=== PATIENT | male | born 1960 | race Caucasian/White ===

== ENCOUNTER 2021-10-27 15:31 | Inpatient (IN) | payer MEDICAID ==
[2021-10-27 22:01] LABS: Hematocrit 35.4 % (35.5-45.6); Hemoglobin 12.5 gm/dl (11.8-15.2); Mean Corpuscular HGB Conc 35 % (32-34); Mean Corpuscular Volume 88 fl (84-94); Platelet Count 240 K/mm3 (140-440); Red Blood Count 4.02 M/mm3 (3.65-5.03); Red Cell Distribution Width 14.6 % (13.2-15.2)
[2021-10-27 22:20] LABS: Alanine Aminotransferase 17 units/L (7-56); Albumin 2.9 g/dL (3.9-5); BUN/Creatinine Ratio 8; Blood Urea Nitrogen 9 mg/dL (9-20); Calcium 8.3 mg/dL (8.4-10.2); Chol/HDL Ratio 5.95 %; HDL Cholesterol 22 mg/dL (40-59); Hemolysis Index 15; LDL Cholesterol,Direct 80 mg/dL (50-130)
[2021-10-27] MEDS: traZODone 50 MG TAB PO SCH (22:23)
[2021-10-27 23:54] LABS: Band Neutrophils # (Manual) 0.2 K/mm3; Basophils % (Manual) 0 % (0.0-1.8); Eosinophils % (Manual) 0 % (0.0-4.3); Total Cells Counted 100
[2021-10-27 23:56] LABS: Anisocytosis 1+
[2021-10-27 23:57] LABS: Large Platelets Few; Macrocytosis Few; Platelet Estimate Consistent w Auto
--- NOTE | 2021-10-28 08:12 | History and Physical Report ---
GP History & Physical - History of Present Illness Date of admission: 10/27/21 Date of Examination: 10/28/21 Reason for Admission: Danger to self, Failure of Outpatient Treatment, Severe anxiety/depression History of Present Illness: The patient was seen today. He says he is depressed and is an alcoholic. The patient is irritable because he says he's tired of answering the same questions. The patient says he spends a lot of money on alcohol a day, he says about $60 daily. He says he drinks pretty much anything. The patient says he has a history of schizophrenia and been off his meds for about 7 months. He does not recall his meds. When asking about hallucinations, the patient replies "yes, but I be so drunk I don't pay them no attention." PAST PSYCHIATRIC HISTORY: Diagnoses: Schizophrenia Suicide attempts or Self-harm behavior: Denies Prior psychiatric hospitalizations: Denies Substance Abuse history: Alcohol Previous psychiatric medications tried: Trazodone Outpatient treatment: not recently PAST MEDICAL HISTORY: None reported Family Psychiatric History: None reported or documented SOCIAL HISTORY Marital Status: Single Living Arrangements: alone Employment Status: Disabled Access to guns/weapons: Denies Education: History of Abuse:Denies Legal History: Denies REVIEW OF SYSTEMS Constitutional: Negative for weight loss ENT: Negative for stridor Respiratory: Negative for cough or hemoptysis All other systems reviewed and are negative MENTAL STATUS EXAMINATION General Appearance and Behavior: Age appropriate, wearing appropriate clothes, cooperative, irritable, fair eye contact Cooperation: cooperative Psychomotor Behavior: Psychomotor normal Mood: irritable, depressed Affect and affective range: congruent with stated affect Thought Process: Goal directed Thought Content: Reality oriented Speech: Normal volume, Regular rate and rhythm Suicidal Ideation: Denies Homicidal Ideation: Denies Hallucination: Denies Delusions: None elicited Impulse Control: Limited Insight and Judgment: Limited Memory: Intact Attention:attentive Orientation: Alert and oriented Diagnoses: Unspecified mood disorder Treatment Plan Patient admitted for inpatient psychiatric evaluation, medication adjustment and close monitoring The patient's behavior, mood, sleep and appetite will be closely monitored. Patient enrolled in individual and group therapeutic sessions and encouraged to attend. Patient provided with a safe and structured environment. Patient's physical health needs will be addressed by the Hospitalist. Hospitalist Consulted Labs including CBC, CMP, Lipid profile and Hemoglobin A1C levels ordered for b aseline reference Social Assessment will be completed and the Transfer Station Attendant will work with patient and family to ensure a suitable and safe disposition Medication adjustment will be made as clinically indicated CIWA Prozac 10mg po daily Abilify 5mg po daily Trazodone 50mg po qhs Melatonin 5mg po qhs prn insomnia Folic 1mg po daily Multivitamin 1 tab daily Usual Wellness Anabaptism/Preservation: - Start Trazodone 50 mg po QHS & 50 mg po QHS PRN between 10 PM & 2 AM for insomnia - Start Melatonin 5 mg po QHS to promote circadian rhythm The patient agreed on the treatment plan, understood the risk, benefit, alternative treatment, potential consequence of no treatment, and gave informed consent. Estimated days: 7 Post hospital care: primary care provider, psychiatric provider Case staffed with Dr. Segovia Legal Status: Voluntary Reaction to Hospitalization: Accepting Medications and Allergies Allergies Allergy/AdvReac Type Severity Reaction Status Date / Time No Known Drug Allergies Allergy Unknown Verified 10/27/21 20:44 Active Meds: Active Medications Lorazepam (Lorazepam 2 Mg/Ml Vial) 2 mg IM Q4H PRN PRN Reason: Withdrawl Symptoms Trazodone HCl (Trazodone 50 Mg Tab) 50 mg PO QHS [facility] Last Admin: 10/27/21 22:23 Dose: 50 mg Results - Results Labs/Vitals: Laboratory Last Values WBC 7.3 K/mm3 (4.5-11.0) 10/27/21 21:49 RBC 4.02 M/mm3 (3.65-5.03) 10/27/21 21:49 Hgb 12.5 gm/dl (11.8-15.2) 10/27/21 21:49 Hct 35.4 % (35.5-45.6) L 10/27/21 21:49 MCV 88 fl (84-94) 10/27/21 21:49 MCH 31 pg (28-32) 10/27/21 21:49 MCHC 35 % (32-34) H 10/27/21 21:49 RDW 14.6 % (13.2-15.2) 10/27/21 21:49 Plt Count 240 K/mm3 (140-440) 10/27/21 21:49 [place] % (Auto) Registered Dietician 10/27/21 21:49 Add Manual Diff Complete 10/27/21 21:49 Total Counted 100 10/27/21 21:49 Seg Neutrophils % Registered Dietician 10/27/21 21:49 Seg Neuts % (Manual) 75.0 % (40.0-70.0) H 10/27/21 21:49 Band Neutrophils % 3.0 % 10/27/21 21:49 Lymphocytes % (Manual) 12.0 % (13.4-35.0) L 10/27/21 21:49 Reactive Lymphs % (Man) 0 % 10/27/21 21:49 Monocytes % (Manual) 10.0 % (0.0-7.3) H 10/27/21 21:49 Eosinophils % (Manual) 0 % (0.0-4.3) 10/27/21 21:49 Basophils % (Manual) 0 % (0.0-1.8) 10/27/21 21:49 Metamyelocytes % 0 % 10/27/21 21:49 Myelocytes % 0 % 10/27/21 21:49 Promyelocytes % 0 % 10/27/21 21:49 Blast Cells % 0 % 10/27/21 21:49 Nucleated RBC % Not Reportable 10/27/21 21:49 Seg Neutrophils # Man 5.5 K/mm3 (1.8-7.7) 10/27/21 21:49 Band Neutrophils # 0.2 K/mm3 10/27/21 21:49 Lymphocytes # (Manual) 0.9 K/mm3 (1.2-5.4) L 10/27/21 21:49 Abs React Lymphs (Man) 0.0 K/mm3 10/27/21 21:49 Monocytes # (Manual) 0.7 K/mm3 (0.0-0.8) 10/27/21 21:49 Eosinophils # (Manual) 0.0 K/mm3 (0.0-0.4) 10/27/21 21:49 Basophils # (Manual) 0.0 K/mm3 (0.0-0.1) 10/27/21 21:49 Metamyelocytes # 0.0 K/mm3 10/27/21 21:49 Myelocytes # 0.0 K/mm3 10/27/21 21:49 Promyelocytes # 0.0 K/mm3 10/27/21 21:49 Blast Cells # 0.0 K/mm3 10/27/21 21:49 WBC Morphology Not Reportable 10/27/21 21:49 Hypersegmented Neuts Not Reportable 10/27/21 21:49 Hyposegmented Neuts Not Reportable 10/27/21 21:49 Hypogranular Neuts Not Reportable 10/27/21 21:49 Smudge Cells Not Reportable 10/27/21 21:49 Toxic Granulation Not Reportable 10/27/21 21:49 Toxic Vacuolation Not Reportable 10/27/21 21:49 Dohle Bodies Not Reportable 10/27/21 21:49 Pelger-Huet Anomaly Not Reportable 10/27/21 21:49 Mu Rods Not Reportable 10/27/21 21:49 Platelet Estimate Consistent w auto 10/27/21 21:49 Clumped Platelets Not Reportable 10/27/21 21:49 Plt Clumps, EDTA Not Reportable 10/27/21 21:49 Large Platelets Few 10/27/21 21:49 Giant Platelets Not Reportable 10/27/21 21:49 Platelet Satelliting Not Reportable 10/27/21 21:49 Plt Morphology Comment Not Reportable 10/27/21 21:49 RBC Morphology Not Reportable 10/27/21 21:49 Dimorphic RBCs Not Reportable 10/27/21 21:49 Polychromasia Not Reportable 10/27/21 21:49 Hypochromasia Not Reportable 10/27/21 21:49 Poikilocytosis Not Reportable 10/27/21 21:49 Anisocytosis 1+ 10/27/21 21:49 Microcytosis Not Reportable 10/27/21 21:49 Macrocytosis Few 10/27/21 21:49 Spherocytes Not Reportable 10/27/21 21:49 Pappenheimer Bodies Not Reportable 10/27/21 21:49 Sickle Cells Not Reportable 10/27/21 21:49 Target Cells Not Reportable 10/27/21 21:49 Tear Drop Cells Not Reportable 10/27/21 21:49 Ovalocytes Not Reportable 10/27/21 21:49 Helmet Cells Not Reportable 10/27/21 21:49 [place] Bodies Not Reportable 10/27/21 21:49 [place] Rings Not Reportable 10/27/21 21:49 [place] Cells Not Reportable 10/27/21 21:49 Bite Cells Not Reportable 10/27/21 21:49 Crenated Cell Not Reportable 10/27/21 21:49 Elliptocytes Not Reportable 10/27/21 21:49 Acanthocytes (Spur) Not Reportable 10/27/21 21:49 Rouleaux Not Reportable 10/27/21 21:49 Hemoglobin C Crystals Not Reportable 10/27/21 21:49 Schistocytes Not Reportable 10/27/21 21:49 Malaria parasites Not Reportable 10/27/21 21:49 [place] Bodies Not Reportable 10/27/21 21:49 Hem Pathologist Commnt No 10/27/21 21:49 Sodium 137 mmol/L (137-145) 10/27/21 21:49 Potassium 3.6 mmol/L (3.6-5.0) 10/27/21 21:49 Chloride 102.9 mmol/L (98-107) 10/27/21 21:49 Carbon Dioxide 27 mmol/L (22-30) 10/27/21 21:49 Anion Gap 11 mmol/L 10/27/21 21:49 BUN 9 mg/dL (9-20) 10/27/21 21:49 Creatinine 1.1 mg/dL (0.8-1.3) 10/27/21 21:49 Estimated GFR > 60 ml/min 10/27/21 21:49 BUN/Creatinine Ratio 8 % 10/27/21 21:49 Glucose 79 mg/dL (75-100) 10/27/21 21:49 POC Glucose 85 mg/dL (70-105) 10/27/21 22:43 Hemoglobin A1c 5.9 % (4-6) 10/27/21 21:49 Calcium 8.3 mg/dL (8.4-10.2) L 10/27/21 21:49 Total Bilirubin 0.50 mg/dL (0.1-1.2) 10/27/21 21:49 AST 33 units/L (5-40) 10/27/21 21:49 ALT 17 units/L (7-56) 10/27/21 21:49 Alkaline Phosphatase 77 units/L (35-129) 10/27/21 21:49 Total Protein 7.6 g/dL (6.3-8.2) 10/27/21 21:49 Albumin 2.9 g/dL (3.9-5) L 10/27/21 21:49 Albumin/Globulin Ratio 0.6 % 10/27/21 21:49 Triglycerides 106 mg/dL (2-149) 10/27/21 21:49 Cholesterol 131 mg/dL (50-199) 10/27/21 21:49 LDL Cholesterol Direct 80 mg/dL (50-130) 10/27/21 21:49 HDL Cholesterol 22 mg/dL (40-59) L 10/27/21 21:49 Cholesterol/HDL Ratio 5.95 % 10/27/21 21:49 TSH 0.970 mlU/mL (0.270-4.200) 10/27/21 21:49 Last Vital Signs Temp 100.2 F H 10/27/21 22:00 Pulse 95 H 10/27/21 22:00 Resp 20 10/27/21 22:00 BP 111/64 10/27/21 22:00 Pulse Ox 93 10/27/21 22:00 Physical Examination - Constitutional Vitals: Vital Signs Temp Pulse Resp BP Pulse Ox 100.2 F H 95 H 20 111/64 93 10/27/21 22:00 10/27/21 22:00 10/27/21 22:00 10/27/21 22:00 10/27/21 22:00 Temperature -Last 24 Hours Temperature 100.2 F Mental Status Exam - Vital signs Last Vital Signs Temp 100.2 F H 10/27/21 22:00 Pulse 95 H 10/27/21 22:00 Resp 20 10/27/21 22:00 BP 111/64 10/27/21 22:00 Pulse Ox 93 10/27/21 22:00 Physician Certification - Certification Statement Physician Certification Statement: This is an acknowledgement statement that MARIA R STOUT is a 61 year old M who requires inpatient psychiatric admission for treatment which could reasonably be expected to improve the patient's condition for Estimated period of time patient will need to remain in the hospital: [ ] Plan for post-hospital care: [ ]
[2021-10-28] MEDS ORDERED: MELATONIN 5 MG TAB PO PRN (08:13)
[2021-10-28] MEDS: ARIPiprazole 5 MG TAB PO SCH (09:22)
[2021-10-28] MEDS: FOLIC ACID 1 MG TAB PO SCH (09:23)
[2021-10-28] MEDS: MULTIVITAMINS ,THERAPEUTIC TAB PO SCH (09:23)
[2021-10-28] MEDS ORDERED: ESCITALOPRAM 10 MG TAB PO SCH (10:00)
--- NOTE | 2021-10-28 10:21 | Consultation ---
History of Present Illness - History of Present Illness HPI: 61-year-old male with past medical history of schizophrenia and alcohol abuse presenting to our facility with complaint of depression. He has a longstanding history of noncompliance with medications and significant substance abuse with alcohol. Internal medicine service consulted for medical management. PMHx: History of alcohol abuse, severe anxiety depression, schizophrenia PSHx: Denies FHx: Reviewed noncontributory SHx: Tobacco use-denies ETOH Use-admits Recreational Drug Use-denies Single lives alone Medications and Allergies Allergies Allergy/AdvReac Type Severity Reaction Status Date / Time No Known Drug Allergies Allergy Unknown Verified 10/27/21 20:44 Home Medications Medication Instructions Recorded Confirmed Last Taken Type Sulfamethoxazole/Trimethoprim 1 each PO BID 10/28/21 10/28/21 Unknown History [Sulfamethoxazole-Tmp Ds Tablet] Active Meds: Active Medications Aripiprazole (Aripiprazole 5 Mg Tab) 5 mg PO QDAY [facility] Last Admin: 10/28/21 09:22 Dose: 5 mg Escitalopram Oxalate (Escitalopram 10 Mg Tab) 5 mg PO QDAY [facility] Last Admin: 10/28/21 09:22 Dose: 5 mg Folic Acid (Folic Acid 1 Mg Tab) 1 mg PO QDAY [facility] Last Admin: 10/28/21 09:23 Dose: 1 mg Lorazepam (Lorazepam 2 Mg/Ml Vial) 2 mg IM Q4H PRN PRN Reason: Withdrawl Symptoms Melatonin (Melatonin 5 Mg Tab) 5 mg PO QHS PRN PRN Reason: Sleep Multivitamins (Multivitamins ,Therapeutic Tab) 1 each PO QDAY [facility] Last Admin: 10/28/21 09:23 Dose: 1 each Trazodone HCl (Trazodone 50 Mg Tab) 50 mg PO QHS [facility] Last Admin: 10/27/21 22:23 Dose: 50 mg Review of Systems All systems: negative (Negative except for stated in HPI) Exam - Physical Exam Narrative exam: Physical Exam: VITAL SIGNS: Reviewed. GENERAL: The patient appears normally developed, Vital signs as documented. Irritable HEAD: No signs of head trauma. EYES: Pupils are equal. Extraocular motions intact. EARS: Hearing grossly intact. MOUTH: Oropharynx is normal. NECK: No adenopathy, no JVD. CHEST: Chest with clear breath sounds bilaterally. No wheezes, rales, or rhonchi. CARDIAC: Regular rate and rhythm. S1 and S2, without murmurs, gallops, or rubs . VASCULAR: No Edema. Peripheral pulses normal and equal in all extremities. ABDOMEN: Soft, non tender and non distended. No rebound or guarding, and no masses palpated. Bowel Sounds normal. MUSCULOSKELETAL: Good range of motion of all major joints. Extremities without clubbing, cyanosis or edema. NEUROLOGIC EXAM: Alert and oriented x 4. no focal sensory or strength deficits. PSYCHIATRIC: Irritable, avoids eye contact SKIN: detail exam as documented in skin assessment - Constitutional Vitals: Temp Pulse Resp BP Pulse Ox 100.2 F H 95 H 20 111/64 93 10/27/21 22:00 10/27/21 22:00 10/27/21 22:00 10/27/21 22:00 10/27/21 22:00 Results - Labs CBC & Chem 7: 10/27/21 21:49 10/27/21 21:49 Labs: Abnormal lab results 10/27/21 10/27/21 Range/Units 21:49 21:49 Hct 35.4 L (35.5-45.6) % MCHC 35 H (32-34) % Seg Neuts % (Manual) 75.0 H (40.0-70.0) % Lymphocytes % (Manual) 12.0 L (13.4-35.0) % Monocytes % (Manual) 10.0 H (0.0-7.3) % Lymphocytes # (Manual) 0.9 L (1.2-5.4) K/mm3 Calcium 8.3 L (8.4-10.2) mg/dL Albumin 2.9 L (3.9-5) g/dL HDL Cholesterol 22 L (40-59) mg/dL Assessment and Plan Assessment #Schizophrenia #Unspecified mood disorder #Anxiety depression #Alcohol abuse - behavioral health counseling administered which included education on benefits of alcohol cessation as well as options for quitting. +15 min. #Advance care planning Disease education conducted, care plan discussed, diagnoses discussed, prognosis discussed, patient is full code, patient acknowledges understanding and agree with care plan, +30 minutes. Plan -Psychiatric medication management per inpatient psych service -Monitor blood pressure daily -Accu-Cheks ACHS -Agree with [facility] protocol - follow labs ordered: CBC, CMP, lipid panel, hemoglobin A1c, thyroid panel -Febrile 100.2, elevated pulse rate 95 bpm, doubt infection at this point. Patient may be withdrawing. We will continue to follow laboratory work-up and assess clinically. IMS will continue to follow while patient remains hospitalized.
[2021-10-28] MEDS: traZODone 50 MG TAB PO SCH (21:14)
[2021-10-28] MEDS ORDERED: ONDANSETRON 4 MG ODT TAB PO PRN (21:49)
--- NOTE | 2021-10-29 08:50 | Progress Note ---
Subjective Date of service: 10/29/21 Principal diagnosis: MDD Subjective Comment: The patient was seen today. He says he's doing better but still depressed. He denies SI/HI or hallucinations of any kind. REVIEW OF SYSTEMS Constitutional: Negative for weight loss ENT: Negative for stridor Respiratory: Negative for cough or hemoptysis All other systems reviewed and are negative MENTAL STATUS EXAMINATION General Appearance and Behavior: Age appropriate, wearing appropriate clothes, cooperative, irritable, fair eye contact Cooperation: cooperative Psychomotor Behavior: Psychomotor normal Mood: depressed Affect and affective range: congruent with stated affect Thought Process: Goal directed Thought Content: Reality oriented Speech: Normal volume, Regular rate and rhythm Suicidal Ideation: Denies Homicidal Ideation: Denies Hallucination: Denies Delusions: None elicited Impulse Control: Limited Insight and Judgment: Limited Memory: Intact Attention:attentive Orientation: Alert and oriented Diagnoses: Unspecified mood disorder Treatment Plan Patient admitted for inpatient psychiatric evaluation, medication adjustment and close monitoring The patient's behavior, mood, sleep and appetite will be closely monitored. Patient enrolled in individual and group therapeutic sessions and encouraged to attend. Patient provided with a safe and structured environment. Patient's physical health needs will be addressed by the Hospitalist. Hospitalist Consulted Labs including CBC, CMP, Lipid profile and Hemoglobin A1C levels ordered for baseline reference Social Assessment will be completed and the Crtt will work with patient and family to ensure a suitable and safe disposition Medication adjustment will be made as clinically indicated Increase Lexapro 10mg po daily Start Depakote DR 125mg po BID Usual Wellness Advent/Preservation: - Start Trazodone 50 mg po QHS & 50 mg po QHS PRN between 10 PM & 2 AM for insomnia - Start Melatonin 5 mg po QHS to promote circadian rhythm The patient agreed on the treatment plan, understood the risk, benefit, alternative treatment, potential consequence of no treatment, and gave informed consent. Estimated days: 7 Post hospital care: primary care provider, psychiatric provider Case staffed with Dr. Segovia Medications and Allergies Allergies Allergy/AdvReac Type Severity Reaction Status Date / Time No Known Drug Allergies Allergy Unknown Verified 10/27/21 20:44 Home Medications Medication Instructions Recorded Confirmed Last Taken Type Sulfamethoxazole/Trimethoprim 1 each PO BID 10/28/21 10/28/21 Unknown History [Sulfamethoxazole-Tmp Ds Tablet] Active Meds: Active Medications Aripiprazole (Aripiprazole 5 Mg Tab) 5 mg PO QDAY [facility] Last Admin: 10/28/21 09:22 Dose: 5 mg Escitalopram Oxalate (Escitalopram 10 Mg Tab) 5 mg PO QDAY [facility] Last Admin: 10/28/21 09:22 Dose: 5 mg Folic Acid (Folic Acid 1 Mg Tab) 1 mg PO QDAY [facility] Last Admin: 10/28/21 09:23 Dose: 1 mg Lorazepam (Lorazepam 2 Mg/Ml Vial) 2 mg IM Q4H PRN PRN Reason: Withdrawl Symptoms Melatonin (Melatonin 5 Mg Tab) 5 mg PO QHS PRN PRN Reason: Sleep Multivitamins (Multivitamins ,Therapeutic Tab) 1 each PO QDAY [facility] Last Admin: 10/28/21 09:23 Dose: 1 each Ondansetron HCl (Ondansetron 4 Mg Odt Tab) 4 mg PO Q4H PRN PRN Reason: Nausea And Vomiting Trazodone HCl (Trazodone 50 Mg Tab) 50 mg PO QHS [facility] Last Admin: 10/28/21 21:14 Dose: Not Given Results - Results Labs/Vitals: Laboratory Last Values WBC 7.3 K/mm3 (4.5-11.0) 10/27/21 21:49 RBC 4.02 M/mm3 (3.65-5.03) 10/27/21 21:49 Hgb 12.5 gm/dl (11.8-15.2) 10/27/21 21:49 Hct 35.4 % (35.5-45.6) L 10/27/21 21:49 MCV 88 fl (84-94) 10/27/21 21:49 MCH 31 pg (28-32) 10/27/21 21:49 MCHC 35 % (32-34) H 10/27/21 21:49 RDW 14.6 % (13.2-15.2) 10/27/21 21:49 Plt Count 240 K/mm3 (140-440) 10/27/21 21:49 [place] % (Auto) Corporate Development Intern 10/27/21 21:49 Add Manual Diff Complete 10/27/21 21:49 Total Counted 100 10/27/21 21:49 Seg Neutrophils % Corporate Development Intern 10/27/21 21:49 Seg Neuts % (Manual) 75.0 % (40.0-70.0) H 10/27/21 21:49 Band Neutrophils % 3.0 % 10/27/21 21:49 Lymphocytes % (Manual) 12.0 % (13.4-35.0) L 10/27/21 21:49 Reactive Lymphs % (Man) 0 % 10/27/21 21:49 Monocytes % (Manual) 10.0 % (0.0-7.3) H 10/27/21 21:49 Eosinophils % (Manual) 0 % (0.0-4.3) 10/27/21 21:49 Basophils % (Manual) 0 % (0.0-1.8) 10/27/21 21:49 Metamyelocytes % 0 % 10/27/21 21:49 Myelocytes % 0 % 10/27/21 21:49 Promyelocytes % 0 % 10/27/21 21:49 Blast Cells % 0 % 10/27/21 21:49 Nucleated RBC % Not Reportable 10/27/21 21:49 Seg Neutrophils # Man 5.5 K/mm3 (1.8-7.7) 10/27/21 21:49 Band Neutrophils # 0.2 K/mm3 10/27/21 21:49 Lymphocytes # (Manual) 0.9 K/mm3 (1.2-5.4) L 10/27/21 21:49 Abs React Lymphs (Man) 0.0 K/mm3 10/27/21 21:49 Monocytes # (Manual) 0.7 K/mm3 (0.0-0.8) 10/27/21 21:49 Eosinophils # (Manual) 0.0 K/mm3 (0.0-0.4) 10/27/21 21:49 Basophils # (Manual) 0.0 K/mm3 (0.0-0.1) 10/27/21 21:49 Metamyelocytes # 0.0 K/mm3 10/27/21 21:49 Myelocytes # 0.0 K/mm3 10/27/21 21:49 Promyelocytes # 0.0 K/mm3 10/27/21 21:49 Blast Cells # 0.0 K/mm3 10/27/21 21:49 WBC Morphology Not Reportable 10/27/21 21:49 Hypersegmented Neuts Not Reportable 10/27/21 21:49 Hyposegmented Neuts Not Reportable 10/27/21 21:49 Hypogranular Neuts Not Reportable 10/27/21 21:49 Smudge Cells Not Reportable 10/27/21 21:49 Toxic Granulation Not Reportable 10/27/21 21:49 Toxic Vacuolation Not Reportable 10/27/21 21:49 Dohle Bodies Not Reportable 10/27/21 21:49 Pelger-Huet Anomaly Not Reportable 10/27/21 21:49 Mu Rods Not Reportable 10/27/21 21:49 Platelet Estimate Consistent w auto 10/27/21 21:49 Clumped Platelets Not Reportable 10/27/21 21:49 Plt Clumps, EDTA Not Reportable 10/27/21 21:49 Large Platelets Few 10/27/21 21:49 Giant Platelets Not Reportable 10/27/21 21:49 Platelet Satelliting Not Reportable 10/27/21 21:49 Plt Morphology Comment Not Reportable 10/27/21 21:49 RBC Morphology Not Reportable 10/27/21 21:49 Dimorphic RBCs Not Reportable 10/27/21 21:49 Polychromasia Not Reportable 10/27/21 21:49 Hypochromasia Not Reportable 10/27/21 21:49 Poikilocytosis Not Reportable 10/27/21 21:49 Anisocytosis 1+ 10/27/21 21:49 Microcytosis Not Reportable 10/27/21 21:49 Macrocytosis Few 10/27/21 21:49 Spherocytes Not Reportable 10/27/21 21:49 Pappenheimer Bodies Not Reportable 10/27/21 21:49 Sickle Cells Not Reportable 10/27/21 21:49 Target Cells Not Reportable 10/27/21 21:49 Tear Drop Cells Not Reportable 10/27/21 21:49 Ovalocytes Not Reportable 10/27/21 21:49 Helmet Cells Not Reportable 10/27/21 21:49 [place] Bodies Not Reportable 10/27/21 21:49 [place] Rings Not Reportable 10/27/21 21:49 [place] Cells Not Reportable 10/27/21 21:49 Bite Cells Not Reportable 10/27/21 21:49 Crenated Cell Not Reportable 10/27/21 21:49 Elliptocytes Not Reportable 10/27/21 21:49 Acanthocytes (Spur) Not Reportable 10/27/21 21:49 Rouleaux Not Reportable 10/27/21 21:49 Hemoglobin C Crystals Not Reportable 10/27/21 21:49 Schistocytes Not Reportable 10/27/21 21:49 Malaria parasites Not Reportable 10/27/21 21:49 [place] Bodies Not Reportable 10/27/21 21:49 Hem Pathologist Commnt No 10/27/21 21:49 Sodium 137 mmol/L (137-145) 10/27/21 21:49 Potassium 3.6 mmol/L (3.6-5.0) 10/27/21 21:49 Chloride 102.9 mmol/L (98-107) 10/27/21 21:49 Carbon Dioxide 27 mmol/L (22-30) 10/27/21 21:49 Anion Gap 11 mmol/L 10/27/21 21:49 BUN 9 mg/dL (9-20) 10/27/21 21:49 Creatinine 1.1 mg/dL (0.8-1.3) 10/27/21 21:49 Estimated GFR > 60 ml/min 10/27/21 21:49 BUN/Creatinine Ratio 8 % 10/27/21 21:49 Glucose 79 mg/dL (75-100) 10/27/21 21:49 POC Glucose 85 mg/dL (70-105) 10/27/21 22:43 Hemoglobin A1c 5.9 % (4-6) 10/27/21 21:49 Calcium 8.3 mg/dL (8.4-10.2) L 10/27/21 21:49 Total Bilirubin 0.50 mg/dL (0.1-1.2) 10/27/21 21:49 AST 33 units/L (5-40) 10/27/21 21:49 ALT 17 units/L (7-56) 10/27/21 21:49 Alkaline Phosphatase 77 units/L (35-129) 10/27/21 21:49 Total Protein 7.6 g/dL (6.3-8.2) 10/27/21 21:49 Albumin 2.9 g/dL (3.9-5) L 10/27/21 21:49 Albumin/Globulin Ratio 0.6 % 10/27/21 21:49 Triglycerides 106 mg/dL (2-149) 10/27/21 21:49 Cholesterol 131 mg/dL (50-199) 10/27/21 21:49 LDL Cholesterol Direct 80 mg/dL (50-130) 10/27/21 21:49 HDL Cholesterol 22 mg/dL (40-59) L 10/27/21 21:49 Cholesterol/HDL Ratio 5.95 % 10/27/21 21:49 TSH 0.970 mlU/mL (0.270-4.200) 10/27/21 21:49 Last Vital Signs Temp 100.2 F H 10/28/21 22:00 Pulse 84 10/28/21 22:00 Resp 17 10/28/21 22:00 BP 114/85 10/28/21 22:00 Pulse Ox 96 10/28/21 22:00
[2021-10-29] MEDS: FOLIC ACID 1 MG TAB PO SCH (10:34)
[2021-10-29] MEDS: MULTIVITAMINS ,THERAPEUTIC TAB PO SCH (10:34)
[2021-10-29] MEDS: ARIPiprazole 5 MG TAB PO SCH (10:34)
[2021-10-29] MEDS: ESCITALOPRAM 10 MG TAB PO SCH (10:49)
[2021-10-29] MEDS: DIVALPROEX DR 125 MG TAB PO SCH ×2 (10:49→22:16)
[2021-10-29] MEDS: LORazepam 2 MG/ML VIAL IM PRN ×2 (11:50→16:15)
--- NOTE | 2021-10-29 12:22 | Progress Note ---
Assessment and Plan Assessment and plan: Assessment #Schizophrenia #Unspecified mood disorder #Anxiety depression #Alcohol abuse #Alcoholic withdrawals - behavioral health counseling administered which included education on benefits of alcohol cessation as well as options for quitting. +15 min. #protein calorie malnutrition #Advance care planning Disease education conducted, care plan discussed, diagnoses discussed, prognosis discussed, patient is full code, patient acknowledges understanding and agree with care plan, +30 minutes. Plan -Psychiatric medication management per inpatient psych service -recommend q8hr vital sign checks if possible -Accu-Cheks ACHS -Agree with CIWA protocol as patient is clearly withdrawing, Ativan prn. - follow labs ordered: CBC, CMP, lipid panel, hemoglobin A1c, thyroid panel - continues to be febrile, however this appears to be consistent with withdrawal. WBC nonelevated, would recommend continued vital sign monitoring. - changed diet to clear liquid diet, can have saltines. Encouraged aggressive PO hydration as tolerated. - very malnourished...when able to tolerate, would recommend protein shakes with meals IMS will continue to follow while patient remains hospitalized. History Interval history: Very nauseous. One episode of blood tingued emesis. Hospitalist Physical - Physical exam Narrative exam: Physical Exam: VITAL SIGNS: Reviewed. GENERAL: The patient appears normally developed, Vital signs as documented. ll appearing. thin gentleman. HEAD: No signs of head trauma. EYES: Pupils are equal. Extraocular motions intact. EARS: Hearing grossly intact. MOUTH: Oropharynx is normal. NECK: No adenopathy, no JVD. CHEST: Chest with clear breath sounds bilaterally. No wheezes, rales, or rhonchi. CARDIAC: Regular rate and rhythm. S1 and S2, without murmurs, gallops, or rubs. VASCULAR: No Edema. Peripheral pulses normal and equal in all extremities. ABDOMEN: Soft, non tender and non distended. No rebound or guarding, and no masses palpated. Bowel Sounds normal. MUSCULOSKELETAL: Good range of motion of all major joints. Extremities without clubbing, cyanosis or edema. NEUROLOGIC EXAM: Alert and oriented x 4. no focal sensory or strength deficits. PSYCHIATRIC: Irritable, avoids eye contact SKIN: detail exam as documented in skin assessment - Constitutional Vitals: Temp Pulse Resp BP Pulse Ox 100.2 F H 84 17 114/85 96 10/28/21 22:00 10/28/21 22:00 10/28/21 22:00 10/28/21 22:00 10/28/21 22:00 Results - Labs CBC & Chem 7: 10/27/21 21:49 10/27/21 21:49 Labs: Laboratory Last Values WBC 7.3 K/mm3 (4.5-11.0) 10/27/21 21:49 RBC 4.02 M/mm3 (3.65-5.03) 10/27/21 21:49 Hgb 12.5 gm/dl (11.8-15.2) 10/27/21 21:49 Hct 35.4 % (35.5-45.6) L 10/27/21 21:49 MCV 88 fl (84-94) 10/27/21 21:49 MCH 31 pg (28-32) 10/27/21 21:49 MCHC 35 % (32-34) H 10/27/21 21:49 RDW 14.6 % (13.2-15.2) 10/27/21 21:49 Plt Count 240 K/mm3 (140-440) 10/27/21 21:49 [place] % (Auto) Hand Stone Polisher 10/27/21 21:49 Add Manual Diff Complete 10/27/21 21:49 Total Counted 100 10/27/21 21:49 Seg Neutrophils % Hand Stone Polisher 10/27/21 21:49 Seg Neuts % (Manual) 75.0 % (40.0-70.0) H 10/27/21 21:49 Band Neutrophils % 3.0 % 10/27/21 21:49 Lymphocytes % (Manual) 12.0 % (13.4-35.0) L 10/27/21 21:49 Reactive Lymphs % (Man) 0 % 10/27/21 21:49 Monocytes % (Manual) 10.0 % (0.0-7.3) H 10/27/21 21:49 Eosinophils % (Manual) 0 % (0.0-4.3) 10/27/21 21:49 Basophils % (Manual) 0 % (0.0-1.8) 10/27/21 21:49 Metamyelocytes % 0 % 10/27/21 21:49 Myelocytes % 0 % 10/27/21 21:49 Promyelocytes % 0 % 10/27/21 21:49 Blast Cells % 0 % 10/27/21 21:49 Nucleated RBC % Not Reportable 10/27/21 21:49 Seg Neutrophils # Man 5.5 K/mm3 (1.8-7.7) 10/27/21 21:49 Band Neutrophils # 0.2 K/mm3 10/27/21 21:49 Lymphocytes # (Manual) 0.9 K/mm3 (1.2-5.4) L 10/27/21 21:49 Abs React Lymphs (Man) 0.0 K/mm3 10/27/21 21:49 Monocytes # (Manual) 0.7 K/mm3 (0.0-0.8) 10/27/21 21:49 Eosinophils # (Manual) 0.0 K/mm3 (0.0-0.4) 10/27/21 21:49 Basophils # (Manual) 0.0 K/mm3 (0.0-0.1) 10/27/21 21:49 Metamyelocytes # 0.0 K/mm3 10/27/21 21:49 Myelocytes # 0.0 K/mm3 10/27/21 21:49 Promyelocytes # 0.0 K/mm3 10/27/21 21:49 Blast Cells # 0.0 K/mm3 10/27/21 21:49 WBC Morphology Not Reportable 10/27/21 21:49 Hypersegmented Neuts Not Reportable 10/27/21 21:49 Hyposegmented Neuts Not Reportable 10/27/21 21:49 Hypogranular Neuts Not Reportable 10/27/21 21:49 Smudge Cells Not Reportable 10/27/21 21:49 Toxic Granulation Not Reportable 10/27/21 21:49 Toxic Vacuolation Not Reportable 10/27/21 21:49 Dohle Bodies Not Reportable 10/27/21 21:49 Pelger-Huet Anomaly Not Reportable 10/27/21 21:49 Mu Rods Not Reportable 10/27/21 21:49 Platelet Estimate Consistent w auto 10/27/21 21:49 Clumped Platelets Not Reportable 10/27/21 21:49 Plt Clumps, EDTA Not Reportable 10/27/21 21:49 Large Platelets Few 10/27/21 21:49 Giant Platelets Not Reportable 10/27/21 21:49 Platelet Satelliting Not Reportable 10/27/21 21:49 Plt Morphology Comment Not Reportable 10/27/21 21:49 RBC Morphology Not Reportable 10/27/21 21:49 Dimorphic RBCs Not Reportable 10/27/21 21:49 Polychromasia Not Reportable 10/27/21 21:49 Hypochromasia Not Reportable 10/27/21 21:49 Poikilocytosis Not Reportable 10/27/21 21:49 Anisocytosis 1+ 10/27/21 21:49 Microcytosis Not Reportable 10/27/21 21:49 Macrocytosis Few 10/27/21 21:49 Spherocytes Not Reportable 10/27/21 21:49 Pappenheimer Bodies Not Reportable 10/27/21 21:49 Sickle Cells Not Reportable 10/27/21 21:49 Target Cells Not Reportable 10/27/21 21:49 Tear Drop Cells Not Reportable 10/27/21 21:49 Ovalocytes Not Reportable 10/27/21 21:49 Helmet Cells Not Reportable 10/27/21 21:49 [place] Bodies Not Reportable 10/27/21 21:49 [place] Rings Not Reportable 10/27/21 21:49 [place] Cells Not Reportable 10/27/21 21:49 Bite Cells Not Reportable 10/27/21 21:49 Crenated Cell Not Reportable 10/27/21 21:49 Elliptocytes Not Reportable 10/27/21 21:49 Acanthocytes (Spur) Not Reportable 10/27/21 21:49 Rouleaux Not Reportable 10/27/21 21:49 Hemoglobin C Crystals Not Reportable 10/27/21 21:49 Schistocytes Not Reportable 10/27/21 21:49 Malaria parasites Not Reportable 10/27/21 21:49 [place] Bodies Not Reportable 10/27/21 21:49 Hem Pathologist Commnt No 10/27/21 21:49 Sodium 137 mmol/L (137-145) 10/27/21 21:49 Potassium 3.6 mmol/L (3.6-5.0) 10/27/21 21:49 Chloride 102.9 mmol/L (98-107) 10/27/21 21:49 Carbon Dioxide 27 mmol/L (22-30) 10/27/21 21:49 Anion Gap 11 mmol/L 10/27/21 21:49 BUN 9 mg/dL (9-20) 10/27/21 21:49 Creatinine 1.1 mg/dL (0.8-1.3) 10/27/21 21:49 Estimated GFR > 60 ml/min 10/27/21 21:49 BUN/Creatinine Ratio 8 % 10/27/21 21:49 Glucose 79 mg/dL (75-100) 10/27/21 21:49 POC Glucose 85 mg/dL (70-105) 10/27/21 22:43 Hemoglobin A1c 5.9 % (4-6) 10/27/21 21:49 Calcium 8.3 mg/dL (8.4-10.2) L 10/27/21 21:49 Total Bilirubin 0.50 mg/dL (0.1-1.2) 10/27/21 21:49 AST 33 units/L (5-40) 10/27/21 21:49 ALT 17 units/L (7-56) 10/27/21 21:49 Alkaline Phosphatase 77 units/L (35-129) 10/27/21 21:49 Total Protein 7.6 g/dL (6.3-8.2) 10/27/21 21:49 Albumin 2.9 g/dL (3.9-5) L 10/27/21 21:49 Albumin/Globulin Ratio 0.6 % 10/27/21 21:49 Triglycerides 106 mg/dL (2-149) 10/27/21 21:49 Cholesterol 131 mg/dL (50-199) 10/27/21 21:49 LDL Cholesterol Direct 80 mg/dL (50-130) 10/27/21 21:49 HDL Cholesterol 22 mg/dL (40-59) L 10/27/21 21:49 Cholesterol/HDL Ratio 5.95 % 10/27/21 21:49 TSH 0.970 mlU/mL (0.270-4.200) 10/27/21 21:49 Clancy/IV: Voiding Method Toilet Active Medications - Current Medications Current Medications: Generic Name Dose Route Start Last Admin Trade Name Freq PRN Reason Stop Dose Admin Aripiprazole 5 mg 10/28/21 10:00 10/29/21 10:34 Aripiprazole 5 Mg Tab PO 5 mg QDAY GABRIELLE Administration Divalproex Sodium 125 mg 10/29/21 10:00 10/29/21 10:[address] 125 Mg Tab PO 125 mg BID GABRIELLE Administration Escitalopram Oxalate 10 mg 10/29/21 10:00 10/29/21 10:49 Escitalopram 10 Mg Tab PO 10 mg QDAY GABRIELLE Administration Folic Acid 1 mg 10/28/21 10:00 10/29/21 10:34 Folic Acid 1 Mg Tab PO 1 mg QDAY GABRIELLE Administration Lorazepam 2 mg 10/27/21 20:53 Lorazepam 2 Mg/Ml Vial IM Q4H PRN Withdrawl Symptoms Melatonin 5 mg 10/28/21 08:13 Melatonin 5 Mg Tab PO QHS PRN Sleep Multivitamins 1 each 10/28/21 10:00 10/29/21 10:34 Multivitamins ,Therapeutic Tab PO 1 each QDAY GABRIELLE Administration Ondansetron HCl 4 mg 10/28/21 21:49 Ondansetron 4 Mg Odt Tab PO Q4H PRN Nausea And Vomiting Pantoprazole Sodium 40 mg 10/29/21 16:30 Pantoprazole 40 Mg Tab PO BIDAC GABRIELLE Trazodone HCl 50 mg 10/27/21 22:00 10/28/21 21:14 Trazodone 50 Mg Tab PO Not Given QHS GABRIELLE
[2021-10-29] MEDS: PANTOPRAZOLE 40 MG TAB PO SCH (16:15)
[2021-10-29] MEDS: traZODone 50 MG TAB PO SCH (22:16)
[2021-10-30] MEDS: PANTOPRAZOLE 40 MG TAB PO SCH ×2 (08:00→17:31)
[2021-10-30] MEDS ORDERED: LORazepam 2 MG TAB PO PRN (08:30)
[2021-10-30] MEDS: ARIPiprazole 5 MG TAB PO SCH (09:11)
[2021-10-30] MEDS: ESCITALOPRAM 10 MG TAB PO SCH ×2 (09:11→11:30)
[2021-10-30] MEDS: DIVALPROEX DR 125 MG TAB PO SCH ×3 (09:11→22:02)
[2021-10-30] MEDS: MULTIVITAMINS ,THERAPEUTIC TAB PO SCH (09:11)
[2021-10-30] MEDS: chlordiazePOXIDE 25 MG CAP PO SCH ×2 (09:11→22:01)
[2021-10-30] MEDS: FOLIC ACID 1 MG TAB PO SCH (09:11)
--- NOTE | 2021-10-30 10:16 | Progress Note ---
Subjective Date of service: 10/30/21 Principal diagnosis: MDD Subjective Comment: The patient was seen today. He is sleeping. I'm having to arouse him several times. The patient says he is tired. He denies SI/HI. Staff notes the patient has been irritable, not eating and using the bathroom on himself. REVIEW OF SYSTEMS Constitutional: Negative for weight loss ENT: Negative for stridor Respiratory: Negative for cough or hemoptysis All other systems reviewed and are negative MENTAL STATUS EXAMINATION General Appearance and Behavior: Age appropriate, wearing appropriate clothes, cooperative, irritable, fair eye contact Cooperation: cooperative Psychomotor Behavior: Psychomotor normal Mood: depressed Affect and affective range: congruent with stated affect Thought Process: Goal directed Thought Content: Reality oriented Speech: Normal volume, Regular rate and rhythm Suicidal Ideation: Denies Homicidal Ideation: Denies Hallucination: Denies Delusions: None elicited Impulse Control: Limited Insight and Judgment: Limited Memory: Intact Attention:attentive Orientation: Alert and oriented Diagnoses: Unspecified mood disorder Treatment Plan Patient admitted for inpatient psychiatric evaluation, medication adjustment and close monitoring The patient's behavior, mood, sleep and appetite will be closely monitored. Patient enrolled in individual and group therapeutic sessions and encouraged to attend. Patient provided with a safe and structured environment. Patient's physical health needs will be addressed by the Hospitalist. Hospitalist Consulted Labs including CBC, CMP, Lipid profile and Hemoglobin A1C levels ordered for baseline reference Social Assessment will be completed and the Pc Installation Engineer will work with patient and family to ensure a suitable and safe disposition Medication adjustment will be made as clinically indicated Increase Lexapro 20mg po daily Start Depakote DR 125mg po TID Start Mirtazepine 7.5mg po qhs Usual Wellness Jehovah'S Witness/Preservation: - Start Trazodone 50 mg po QHS & 50 mg po QHS PRN between 10 PM & 2 AM for insomnia - Start Melatonin 5 mg po QHS to promote circadian rhythm The patient agreed on the treatment plan, understood the risk, benefit, alternative treatment, potential consequence of no treatment, and gave informed consent. Estimated days: 7 Post hospital care: primary care provider, psychiatric provider Case staffed with Dr. Segovia Medications and Allergies Allergies Allergy/AdvReac Type Severity Reaction Status Date / Time No Known Drug Allergies Allergy Unknown Verified 10/27/21 20:44 Home Medications Medication Instructions Recorded Confirmed Last Taken Type Sulfamethoxazole/Trimethoprim 1 each PO BID 10/28/21 10/28/21 Unknown History [Sulfamethoxazole-Tmp Ds Tablet] Active Meds: Active Medications Aripiprazole (Aripiprazole 5 Mg Tab) 5 mg PO QDAY [facility] Last Admin: 10/30/21 09:11 Dose: 5 mg Chlordiazepoxide HCl (Chlordiazepoxide 25 Mg Cap) 25 mg PO BID [facility] Last Admin: 10/30/21 09:11 Dose: 25 mg Divalproex Sodium (Divalproex Dr 125 Mg Tab) 125 mg PO BID [facility] Last Admin: 10/30/21 09:11 Dose: 125 mg Escitalopram Oxalate (Escitalopram 10 Mg Tab) 10 mg PO QDAY [facility] Last Admin: 10/30/21 09:11 Dose: 10 mg Folic Acid (Folic Acid 1 Mg Tab) 1 mg PO QDAY [facility] Last Admin: 10/30/21 09:11 Dose: 1 mg Lorazepam (Lorazepam 2 Mg Tab) 2 mg PO Q4H PRN PRN Reason: Alcohol Withdrawal Melatonin (Melatonin 5 Mg Tab) 5 mg PO QHS PRN PRN Reason: Sleep Multivitamins (Multivitamins ,Therapeutic Tab) 1 each PO QDAY [facility] Last Admin: 10/30/21 09:11 Dose: 1 each Ondansetron HCl (Ondansetron 4 Mg Odt Tab) 4 mg PO Q4H PRN PRN Reason: Nausea And Vomiting Pantoprazole Sodium (Pantoprazole 40 Mg Tab) 40 mg PO BIDAC [facility] Last Admin: 10/30/21 08:00 Dose: 40 mg Trazodone HCl (Trazodone 50 Mg Tab) 50 mg PO QHS [facility] Last Admin: 10/29/21 22:16 Dose: Not Given Results - Results Labs/Vitals: Laboratory Last Values WBC 7.3 K/mm3 (4.5-11.0) 10/27/21 21:49 RBC 4.02 M/mm3 (3.65-5.03) 10/27/21 21:49 Hgb 12.5 gm/dl (11.8-15.2) 10/27/21 21:49 Hct 35.4 % (35.5-45.6) L 10/27/21 21:49 MCV 88 fl (84-94) 10/27/21 21:49 MCH 31 pg (28-32) 10/27/21 21:49 MCHC 35 % (32-34) H 10/27/21 21:49 RDW 14.6 % (13.2-15.2) 10/27/21 21:49 Plt Count 240 K/mm3 (140-440) 10/27/21 21:49 [place] % (Auto) Tig Welder 10/27/21 21:49 Add Manual Diff Complete 10/27/21 21:49 Total Counted 100 10/27/21 21:49 Seg Neutrophils % Tig Welder 10/27/21 21:49 Seg Neuts % (Manual) 75.0 % (40.0-70.0) H 10/27/21 21:49 Band Neutrophils % 3.0 % 10/27/21 21:49 Lymphocytes % (Manual) 12.0 % (13.4-35.0) L 10/27/21 21:49 Reactive Lymphs % (Man) 0 % 10/27/21 21:49 Monocytes % (Manual) 10.0 % (0.0-7.3) H 10/27/21 21:49 Eosinophils % (Manual) 0 % (0.0-4.3) 10/27/21 21:49 Basophils % (Manual) 0 % (0.0-1.8) 10/27/21 21:49 Metamyelocytes % 0 % 10/27/21 21:49 Myelocytes % 0 % 10/27/21 21:49 Promyelocytes % 0 % 10/27/21 21:49 Blast Cells % 0 % 10/27/21 21:49 Nucleated RBC % Not Reportable 10/27/21 21:49 Seg Neutrophils # Man 5.5 K/mm3 (1.8-7.7) 10/27/21 21:49 Band Neutrophils # 0.2 K/mm3 10/27/21 21:49 Lymphocytes # (Manual) 0.9 K/mm3 (1.2-5.4) L 10/27/21 21:49 Abs React Lymphs (Man) 0.0 K/mm3 10/27/21 21:49 Monocytes # (Manual) 0.7 K/mm3 (0.0-0.8) 10/27/21 21:49 Eosinophils # (Manual) 0.0 K/mm3 (0.0-0.4) 10/27/21 21:49 Basophils # (Manual) 0.0 K/mm3 (0.0-0.1) 10/27/21 21:49 Metamyelocytes # 0.0 K/mm3 10/27/21 21:49 Myelocytes # 0.0 K/mm3 10/27/21 21:49 Promyelocytes # 0.0 K/mm3 10/27/21 21:49 Blast Cells # 0.0 K/mm3 10/27/21 21:49 WBC Morphology Not Reportable 10/27/21 21:49 Hypersegmented Neuts Not Reportable 10/27/21 21:49 Hyposegmented Neuts Not Reportable 10/27/21 21:49 Hypogranular Neuts Not Reportable 10/27/21 21:49 Smudge Cells Not Reportable 10/27/21 21:49 Toxic Granulation Not Reportable 10/27/21 21:49 Toxic Vacuolation Not Reportable 10/27/21 21:49 Dohle Bodies Not Reportable 10/27/21 21:49 Pelger-Huet Anomaly Not Reportable 10/27/21 21:49 Mu Rods Not Reportable 10/27/21 21:49 Platelet Estimate Consistent w auto 10/27/21 21:49 Clumped Platelets Not Reportable 10/27/21 21:49 Plt Clumps, EDTA Not Reportable 10/27/21 21:49 Large Platelets Few 10/27/21 21:49 Giant Platelets Not Reportable 10/27/21 21:49 Platelet Satelliting Not Reportable 10/27/21 21:49 Plt Morphology Comment Not Reportable 10/27/21 21:49 RBC Morphology Not Reportable 10/27/21 21:49 Dimorphic RBCs Not Reportable 10/27/21 21:49 Polychromasia Not Reportable 10/27/21 21:49 Hypochromasia Not Reportable 10/27/21 21:49 Poikilocytosis Not Reportable 10/27/21 21:49 Anisocytosis 1+ 10/27/21 21:49 Microcytosis Not Reportable 10/27/21 21:49 Macrocytosis Few 10/27/21 21:49 Spherocytes Not Reportable 10/27/21 21:49 Pappenheimer Bodies Not Reportable 10/27/21 21:49 Sickle Cells Not Reportable 10/27/21 21:49 Target Cells Not Reportable 10/27/21 21:49 Tear Drop Cells Not Reportable 10/27/21 21:49 Ovalocytes Not Reportable 10/27/21 21:49 Helmet Cells Not Reportable 10/27/21 21:49 [place] Bodies Not Reportable 10/27/21 21:49 [place] Rings Not Reportable 10/27/21 21:49 [place] Cells Not Reportable 10/27/21 21:49 Bite Cells Not Reportable 10/27/21 21:49 Crenated Cell Not Reportable 10/27/21 21:49 Elliptocytes Not Reportable 10/27/21 21:49 Acanthocytes (Spur) Not Reportable 10/27/21 21:49 Rouleaux Not Reportable 10/27/21 21:49 Hemoglobin C Crystals Not Reportable 10/27/21 21:49 Schistocytes Not Reportable 10/27/21 21:49 Malaria parasites Not Reportable 10/27/21 21:49 [place] Bodies Not Reportable 10/27/21 21:49 Hem Pathologist Commnt No 10/27/21 21:49 Sodium 137 mmol/L (137-145) 10/27/21 21:49 Potassium 3.6 mmol/L (3.6-5.0) 10/27/21 21:49 Chloride 102.9 mmol/L (98-107) 10/27/21 21:49 Carbon Dioxide 27 mmol/L (22-30) 10/27/21 21:49 Anion Gap 11 mmol/L 10/27/21 21:49 BUN 9 mg/dL (9-20) 10/27/21 21:49 Creatinine 1.1 mg/dL (0.8-1.3) 10/27/21 21:49 Estimated GFR > 60 ml/min 10/27/21 21:49 BUN/Creatinine Ratio 8 % 10/27/21 21:49 Glucose 79 mg/dL (75-100) 10/27/21 21:49 POC Glucose 85 mg/dL (70-105) 10/27/21 22:43 Hemoglobin A1c 5.9 % (4-6) 10/27/21 21:49 Calcium 8.3 mg/dL (8.4-10.2) L 10/27/21 21:49 Total Bilirubin 0.50 mg/dL (0.1-1.2) 10/27/21 21:49 AST 33 units/L (5-40) 10/27/21 21:49 ALT 17 units/L (7-56) 10/27/21 21:49 Alkaline Phosphatase 77 units/L (35-129) 10/27/21 21:49 Total Protein 7.6 g/dL (6.3-8.2) 10/27/21 21:49 Albumin 2.9 g/dL (3.9-5) L 10/27/21 21:49 Albumin/Globulin Ratio 0.6 % 10/27/21 21:49 Triglycerides 106 mg/dL (2-149) 10/27/21 21:49 Cholesterol 131 mg/dL (50-199) 10/27/21 21:49 LDL Cholesterol Direct 80 mg/dL (50-130) 10/27/21 21:49 HDL Cholesterol 22 mg/dL (40-59) L 10/27/21 21:49 Cholesterol/HDL Ratio 5.95 % 10/27/21 21:49 TSH 0.970 mlU/mL (0.270-4.200) 10/27/21 21:49 Last Vital Signs Temp 99.0 F 10/30/21 06:22 Pulse 104 H 10/30/21 06:22 Resp 18 10/30/21 06:22 BP 125/89 10/30/21 06:22 Pulse Ox 93 10/30/21 06:22
--- NOTE | 2021-10-30 14:11 | Progress Note ---
Assessment and Plan Assessment and plan: Assessment #Schizophrenia #Unspecified mood disorder #Anxiety depression #Alcohol abuse #Alcoholic withdrawals - behavioral health counseling administered which included education on benefits of alcohol cessation as well as options for quitting. +15 min. #protein calorie malnutrition #Advance care planning Disease education conducted, care plan discussed, diagnoses discussed, prognosis discussed, patient is full code, patient acknowledges understanding and agree with care plan, +30 minutes. Plan -Psychiatric medication management per inpatient psych service -recommend q8hr vital sign checks if possible -Accu-Cheks ACHS -Agree with CIWA protocol as patient is clearly withdrawing, Ativan prn. - follow labs ordered: CBC, CMP, lipid panel, hemoglobin A1c, thyroid panel - continues to be febrile, however this appears to be consistent with withdrawal. WBC nonelevated, would recommend continued vital sign monitoring. - changed diet to clear liquid diet, can have saltines. Encouraged aggressive PO hydration as tolerated. - very malnourished...when able to tolerate, would recommend protein shakes with meals IMS will continue to follow while patient remains hospitalized. History Interval history: No acute issues overnight. No vomiting overnight. Encourage to increase po intake if possible. Hospitalist Physical - Physical exam Narrative exam: Physical Exam: VITAL SIGNS: Reviewed. GENERAL: The patient appears normally developed, Vital signs as documented. ll appearing. thin gentleman. HEAD: No signs of head trauma. EYES: Pupils are equal. Extraocular motions intact. EARS: Hearing grossly intact. MOUTH: Oropharynx is normal. NECK: No adenopathy, no JVD. CHEST: Chest with clear breath sounds bilaterally. No wheezes, rales, or rhonchi. CARDIAC: Regular rate and rhythm. S1 and S2, without murmurs, gallops, or rubs. VASCULAR: No Edema. Peripheral pulses normal and equal in all extremities. ABDOMEN: Soft, non tender and non distended. No rebound or guarding, and no masses palpated. Bowel Sounds normal. MUSCULOSKELETAL: Good range of motion of all major joints. Extremities without clubbing, cyanosis or edema. NEUROLOGIC EXAM: Alert and oriented x 4. no focal sensory or strength deficits. PSYCHIATRIC: Irritable, avoids eye contact SKIN: detail exam as documented in skin assessment - Constitutional Vitals: Temp Pulse Resp BP Pulse Ox 99.0 F 104 H 18 125/89 93 10/30/21 06:22 10/30/21 06:22 10/30/21 06:22 10/30/21 06:22 10/30/21 06:22 Results - Labs CBC & Chem 7: 10/27/21 21:49 10/27/21 21:49 Labs: Laboratory Last Values WBC 7.3 K/mm3 (4.5-11.0) 10/27/21 21:49 RBC 4.02 M/mm3 (3.65-5.03) 10/27/21 21:49 Hgb 12.5 gm/dl (11.8-15.2) 10/27/21 21:49 Hct 35.4 % (35.5-45.6) L 10/27/21 21:49 MCV 88 fl (84-94) 10/27/21 21:49 MCH 31 pg (28-32) 10/27/21 21:49 MCHC 35 % (32-34) H 10/27/21 21:49 RDW 14.6 % (13.2-15.2) 10/27/21 21:49 Plt Count 240 K/mm3 (140-440) 10/27/21 21:49 [place] % (Auto) Microfilm Operator 10/27/21 21:49 Add Manual Diff Complete 10/27/21 21:49 Total Counted 100 10/27/21 21:49 Seg Neutrophils % Microfilm Operator 10/27/21 21:49 Seg Neuts % (Manual) 75.0 % (40.0-70.0) H 10/27/21 21:49 Band Neutrophils % 3.0 % 10/27/21 21:49 Lymphocytes % (Manual) 12.0 % (13.4-35.0) L 10/27/21 21:49 Reactive Lymphs % (Man) 0 % 10/27/21 21:49 Monocytes % (Manual) 10.0 % (0.0-7.3) H 10/27/21 21:49 Eosinophils % (Manual) 0 % (0.0-4.3) 10/27/21 21:49 Basophils % (Manual) 0 % (0.0-1.8) 10/27/21 21:49 Metamyelocytes % 0 % 10/27/21 21:49 Myelocytes % 0 % 10/27/21 21:49 Promyelocytes % 0 % 10/27/21 21:49 Blast Cells % 0 % 10/27/21 21:49 Nucleated RBC % Not Reportable 10/27/21 21:49 Seg Neutrophils # Man 5.5 K/mm3 (1.8-7.7) 10/27/21 21:49 Band Neutrophils # 0.2 K/mm3 10/27/21 21:49 Lymphocytes # (Manual) 0.9 K/mm3 (1.2-5.4) L 10/27/21 21:49 Abs React Lymphs (Man) 0.0 K/mm3 10/27/21 21:49 Monocytes # (Manual) 0.7 K/mm3 (0.0-0.8) 10/27/21 21:49 Eosinophils # (Manual) 0.0 K/mm3 (0.0-0.4) 10/27/21 21:49 Basophils # (Manual) 0.0 K/mm3 (0.0-0.1) 10/27/21 21:49 Metamyelocytes # 0.0 K/mm3 10/27/21 21:49 Myelocytes # 0.0 K/mm3 10/27/21 21:49 Promyelocytes # 0.0 K/mm3 10/27/21 21:49 Blast Cells # 0.0 K/mm3 10/27/21 21:49 WBC Morphology Not Reportable 10/27/21 21:49 Hypersegmented Neuts Not Reportable 10/27/21 21:49 Hyposegmented Neuts Not Reportable 10/27/21 21:49 Hypogranular Neuts Not Reportable 10/27/21 21:49 Smudge Cells Not Reportable 10/27/21 21:49 Toxic Granulation Not Reportable 10/27/21 21:49 Toxic Vacuolation Not Reportable 10/27/21 21:49 Dohle Bodies Not Reportable 10/27/21 21:49 Pelger-Huet Anomaly Not Reportable 10/27/21 21:49 Mu Rods Not Reportable 10/27/21 21:49 Platelet Estimate Consistent w auto 10/27/21 21:49 Clumped Platelets Not Reportable 10/27/21 21:49 Plt Clumps, EDTA Not Reportable 10/27/21 21:49 Large Platelets Few 10/27/21 21:49 Giant Platelets Not Reportable 10/27/21 21:49 Platelet Satelliting Not Reportable 10/27/21 21:49 Plt Morphology Comment Not Reportable 10/27/21 21:49 RBC Morphology Not Reportable 10/27/21 21:49 Dimorphic RBCs Not Reportable 10/27/21 21:49 Polychromasia Not Reportable 10/27/21 21:49 Hypochromasia Not Reportable 10/27/21 21:49 Poikilocytosis Not Reportable 10/27/21 21:49 Anisocytosis 1+ 10/27/21 21:49 Microcytosis Not Reportable 10/27/21 21:49 Macrocytosis Few 10/27/21 21:49 Spherocytes Not Reportable 10/27/21 21:49 Pappenheimer Bodies Not Reportable 10/27/21 21:49 Sickle Cells Not Reportable 10/27/21 21:49 Target Cells Not Reportable 10/27/21 21:49 Tear Drop Cells Not Reportable 10/27/21 21:49 Ovalocytes Not Reportable 10/27/21 21:49 Helmet Cells Not Reportable 10/27/21 21:49 [place] Bodies Not Reportable 10/27/21 21:49 [place] Rings Not Reportable 10/27/21 21:49 Jose Roberto Cells Not Reportable 10/27/21 21:49 Bite Cells Not Reportable 10/27/21 21:49 Crenated Cell Not Reportable 10/27/21 21:49 Elliptocytes Not Reportable 10/27/21 21:49 Acanthocytes (Spur) Not Reportable 10/27/21 21:49 Rouleaux Not Reportable 10/27/21 21:49 Hemoglobin C Crystals Not Reportable 10/27/21 21:49 Schistocytes Not Reportable 10/27/21 21:49 Malaria parasites Not Reportable 10/27/21 21:49 [place] Bodies Not Reportable 10/27/21 21:49 Hem Pathologist Commnt No 10/27/21 21:49 Sodium 137 mmol/L (137-145) 10/27/21 21:49 Potassium 3.6 mmol/L (3.6-5.0) 10/27/21 21:49 Chloride 102.9 mmol/L (98-107) 10/27/21 21:49 Carbon Dioxide 27 mmol/L (22-30) 10/27/21 21:49 Anion Gap 11 mmol/L 10/27/21 21:49 BUN 9 mg/dL (9-20) 10/27/21 21:49 Creatinine 1.1 mg/dL (0.8-1.3) 10/27/21 21:49 Estimated GFR > 60 ml/min 10/27/21 21:49 BUN/Creatinine Ratio 8 % 10/27/21 21:49 Glucose 79 mg/dL (75-100) 10/27/21 21:49 POC Glucose 85 mg/dL (70-105) 10/27/21 22:43 Hemoglobin A1c 5.9 % (4-6) 10/27/21 21:49 Calcium 8.3 mg/dL (8.4-10.2) L 10/27/21 21:49 Total Bilirubin 0.50 mg/dL (0.1-1.2) 10/27/21 21:49 AST 33 units/L (5-40) 10/27/21 21:49 ALT 17 units/L (7-56) 10/27/21 21:49 Alkaline Phosphatase 77 units/L (35-129) 10/27/21 21:49 Total Protein 7.6 g/dL (6.3-8.2) 10/27/21 21:49 Albumin 2.9 g/dL (3.9-5) L 10/27/21 21:49 Albumin/Globulin Ratio 0.6 % 10/27/21 21:49 Triglycerides 106 mg/dL (2-149) 10/27/21 21:49 Cholesterol 131 mg/dL (50-199) 10/27/21 21:49 LDL Cholesterol Direct 80 mg/dL (50-130) 10/27/21 21:49 HDL Cholesterol 22 mg/dL (40-59) L 10/27/21 21:49 Cholesterol/HDL Ratio 5.95 % 10/27/21 21:49 TSH 0.970 mlU/mL (0.270-4.200) 10/27/21 21:49 [place]/IV: Voiding Method Diaper Active Medications - Current Medications Current Medications: Generic Name Dose Route Start Last Admin Trade Name Freq PRN Reason Stop Dose Admin Aripiprazole 5 mg 10/28/21 10:00 10/30/21 09:11 Aripiprazole 5 Mg Tab PO 5 mg QDAY GABRIELLE Administration Chlordiazepoxide HCl 25 mg 10/30/21 10:00 10/30/21 09:11 Chlordiazepoxide 25 Mg Cap PO 25 mg BID GABRIELLE Administration Divalproex Sodium 125 mg 10/30/21 14:[address] 125 Mg Tab PO TID [facility] Escitalopram Oxalate 20 mg 10/30/21 11:00 10/30/21 11:30 Escitalopram 10 Mg Tab PO 20 mg QDAY GABRIELLE Administration Folic Acid 1 mg 10/28/21 10:00 10/30/21 09:11 Folic Acid 1 Mg Tab PO 1 mg QDAY [facility] Administration Lorazepam 2 mg 10/30/21 08:30 Lorazepam 2 Mg Tab PO Q4H PRN Alcohol Withdrawal Melatonin 5 mg 10/28/21 08:13 Melatonin 5 Mg Tab PO QHS PRN Sleep Mirtazapine 7.5 mg 10/30/21 22:00 Mirtazapine 15 Mg Tab PO QHS [facility] Multivitamins 1 each 10/28/21 10:00 10/30/21 09:11 Multivitamins ,Therapeutic Tab PO 1 each QDAY [facility] Administration Ondansetron HCl 4 mg 10/28/21 21:49 Ondansetron 4 Mg Odt Tab PO Q4H PRN Nausea And Vomiting Pantoprazole Sodium 40 mg 10/29/21 16:30 10/30/21 08:00 Pantoprazole 40 Mg Tab PO 40 mg BIDAC GABRIELLE Administration Trazodone HCl 50 mg 10/27/21 22:00 10/29/21 22:16 Trazodone 50 Mg Tab PO Not Given QHS [facility]
[2021-10-30] MEDS: MIRTAZAPINE 15 MG TAB PO SCH (22:02)
[2021-10-30] MEDS: traZODone 50 MG TAB PO SCH (22:06)
--- NOTE | 2021-10-31 08:32 | Progress Note ---
Subjective Date of service: 10/31/21 Principal diagnosis: MDD Subjective Comment: The patient was seen today. He is sleeping. He arouses easily but drifts back off. He says he feels "pretty good," but the patient looks weak. I ask was he weak, and he replies "yes." The patient says he slept "on and off." He denies SI/HI or hallucinations. Staff says the patient has poor intake. He has also been running a temp. Nurse states hospitalist aware. Will order CBC, CMP and UA. REVIEW OF SYSTEMS Constitutional: Negative for weight loss ENT: Negative for stridor Respiratory: Negative for cough or hemoptysis All other systems reviewed and are negative MENTAL STATUS EXAMINATION General Appearance and Behavior: Age appropriate, wearing appropriate clothes, cooperative, drowsy Cooperation: cooperative Psychomotor Behavior: Psychomotor normal Mood: "pretty good" Affect and affective range: congruent with stated affect Thought Process: Goal directed Thought Content: Reality oriented Speech: Normal volume, Regular rate and rhythm Suicidal Ideation: Denies Homicidal Ideation: Denies Hallucination: Denies Delusions: None elicited Impulse Control: Limited Insight and Judgment: Limited Memory: Intact Attention:attentive Orientation: drowsy Diagnoses: Unspecified mood disorder Treatment Plan Patient admitted for inpatient psychiatric evaluation, medication adjustment and close monitoring The patient's behavior, mood, sleep and appetite will be closely monitored. Patient enrolled in individual and group therapeutic sessions and encouraged to attend. Patient provided with a safe and structured environment. Patient's physical health needs will be addressed by the Hospitalist. Hospitalist Consulted Labs including CBC, CMP, Lipid profile and Hemoglobin A1C levels ordered for baseline reference CBC, CMP, UA ordered Social Assessment will be completed and the Rubber Splicer will work with patient and family to ensure a suitable and safe disposition Medication adjustment will be made as clinically indicated Usual Wellness [employer]/Preservation: - Start Trazodone 50 mg po QHS & 50 mg po QHS PRN between 10 PM & 2 AM for insomnia - Start Melatonin 5 mg po QHS to promote circadian rhythm The patient agreed on the treatment plan, understood the risk, benefit, alternative treatment, potential consequence of no treatment, and gave informed consent. Estimated days: 7 Post hospital care: primary care provider, psychiatric provider Case staffed with Dr. Segovia Medications and Allergies Allergies Allergy/AdvReac Type Severity Reaction Status Date / Time No Known Drug Allergies Allergy Unknown Verified 10/27/21 20:44 Home Medications Medication Instructions Recorded Confirmed Last Taken Type Sulfamethoxazole/Trimethoprim 1 each PO BID 10/28/21 10/28/21 Unknown History [Sulfamethoxazole-Tmp Ds Tablet] Active Meds: Active Medications Aripiprazole (Aripiprazole 5 Mg Tab) 5 mg PO QDAY REPLACED BY [facility] Last Admin: 10/30/21 09:11 Dose: 5 mg Chlordiazepoxide HCl (Chlordiazepoxide 25 Mg Cap) 25 mg PO BID REPLACED BY [facility] Last Admin: 10/30/21 22:01 Dose: 25 mg Divalproex Sodium (Divalproex Dr 125 Mg Tab) 125 mg PO TID REPLACED BY [facility] Last Admin: 10/30/21 22:02 Dose: 125 mg Escitalopram Oxalate (Escitalopram 10 Mg Tab) 20 mg PO QDAY REPLACED BY [facility] Last Admin: 10/30/21 11:30 Dose: 20 mg Folic Acid (Folic Acid 1 Mg Tab) 1 mg PO QDAY REPLACED BY [facility] Last Admin: 10/30/21 09:11 Dose: 1 mg Lorazepam (Lorazepam 2 Mg Tab) 2 mg PO Q4H PRN PRN Reason: Alcohol Withdrawal Melatonin (Melatonin 5 Mg Tab) 5 mg PO QHS PRN PRN Reason: Sleep Mirtazapine (Mirtazapine 15 Mg Tab) 7.5 mg PO QHS REPLACED BY [facility] Last Admin: 10/30/21 22:02 Dose: 7.5 mg Multivitamins (Multivitamins ,Therapeutic Tab) 1 each PO QDAY REPLACED BY [facility] Last Admin: 10/30/21 09:11 Dose: 1 each Ondansetron HCl (Ondansetron 4 Mg Odt Tab) 4 mg PO Q4H PRN PRN Reason: Nausea And Vomiting Pantoprazole Sodium (Pantoprazole 40 Mg Tab) 40 mg PO BIDAC REPLACED BY [facility] Last Admin: 10/30/21 17:31 Dose: 40 mg Trazodone HCl (Trazodone 50 Mg Tab) 50 mg PO QHS REPLACED BY [facility] Last Admin: 10/30/21 22:06 Dose: Not Given Results - Results Labs/Vitals: Laboratory Last Values WBC 7.3 K/mm3 (4.5-11.0) 10/27/21 21:49 RBC 4.02 M/mm3 (3.65-5.03) 10/27/21 21:49 Hgb 12.5 gm/dl (11.8-15.2) 10/27/21 21:49 Hct 35.4 % (35.5-45.6) L 10/27/21 21:49 MCV 88 fl (84-94) 10/27/21 21:49 MCH 31 pg (28-32) 10/27/21 21:49 MCHC 35 % (32-34) H 10/27/21 21:49 RDW 14.6 % (13.2-15.2) 10/27/21 21:49 Plt Count 240 K/mm3 (140-440) 10/27/21 21:49 [place] % (Auto) System Validation Engineer 10/27/21 21:49 Add Manual Diff Complete 10/27/21 21:49 Total Counted 100 10/27/21 21:49 Seg Neutrophils % System Validation Engineer 10/27/21 21:49 Seg Neuts % (Manual) 75.0 % (40.0-70.0) H 10/27/21 21:49 Band Neutrophils % 3.0 % 10/27/21 21:49 Lymphocytes % (Manual) 12.0 % (13.4-35.0) L 10/27/21 21:49 Reactive Lymphs % (Man) 0 % 10/27/21 21:49 Monocytes % (Manual) 10.0 % (0.0-7.3) H 10/27/21 21:49 Eosinophils % (Manual) 0 % (0.0-4.3) 10/27/21 21:49 Basophils % (Manual) 0 % (0.0-1.8) 10/27/21 21:49 Metamyelocytes % 0 % 10/27/21 21:49 Myelocytes % 0 % 10/27/21 21:49 Promyelocytes % 0 % 10/27/21 21:49 Blast Cells % 0 % 10/27/21 21:49 Nucleated RBC % Not Reportable 10/27/21 21:49 Seg Neutrophils # Man 5.5 K/mm3 (1.8-7.7) 10/27/21 21:49 Band Neutrophils # 0.2 K/mm3 10/27/21 21:49 Lymphocytes # (Manual) 0.9 K/mm3 (1.2-5.4) L 10/27/21 21:49 Abs React Lymphs (Man) 0.0 K/mm3 10/27/21 21:49 Monocytes # (Manual) 0.7 K/mm3 (0.0-0.8) 10/27/21 21:49 Eosinophils # (Manual) 0.0 K/mm3 (0.0-0.4) 10/27/21 21:49 Basophils # (Manual) 0.0 K/mm3 (0.0-0.1) 10/27/21 21:49 Metamyelocytes # 0.0 K/mm3 10/27/21 21:49 Myelocytes # 0.0 K/mm3 10/27/21 21:49 Promyelocytes # 0.0 K/mm3 10/27/21 21:49 Blast Cells # 0.0 K/mm3 10/27/21 21:49 WBC Morphology Not Reportable 10/27/21 21:49 Hypersegmented Neuts Not Reportable 10/27/21 21:49 Hyposegmented Neuts Not Reportable 10/27/21 21:49 Hypogranular Neuts Not Reportable 10/27/21 21:49 Smudge Cells Not Reportable 10/27/21 21:49 Toxic Granulation Not Reportable 10/27/21 21:49 Toxic Vacuolation Not Reportable 10/27/21 21:49 Dohle Bodies Not Reportable 10/27/21 21:49 Pelger-Huet Anomaly Not Reportable 10/27/21 21:49 Mu Rods Not Reportable 10/27/21 21:49 Platelet Estimate Consistent w auto 10/27/21 21:49 Clumped Platelets Not Reportable 10/27/21 21:49 Plt Clumps, EDTA Not Reportable 10/27/21 21:49 Large Platelets Few 10/27/21 21:49 Giant Platelets Not Reportable 10/27/21 21:49 Platelet Satelliting Not Reportable 10/27/21 21:49 Plt Morphology Comment Not Reportable 10/27/21 21:49 RBC Morphology Not Reportable 10/27/21 21:49 Dimorphic RBCs Not Reportable 10/27/21 21:49 Polychromasia Not Reportable 10/27/21 21:49 Hypochromasia Not Reportable 10/27/21 21:49 Poikilocytosis Not Reportable 10/27/21 21:49 Anisocytosis 1+ 10/27/21 21:49 Microcytosis Not Reportable 10/27/21 21:49 Macrocytosis Few 10/27/21 21:49 Spherocytes Not Reportable 10/27/21 21:49 Pappenheimer Bodies Not Reportable 10/27/21 21:49 Sickle Cells Not Reportable 10/27/21 21:49 Target Cells Not Reportable 10/27/21 21:49 Tear Drop Cells Not Reportable 10/27/21 21:49 Ovalocytes Not Reportable 10/27/21 21:49 Helmet Cells Not Reportable 10/27/21 21:49 [place] Bodies Not Reportable 10/27/21 21:49 [place] Rings Not Reportable 10/27/21 21:49 Jose Roberto Cells Not Reportable 10/27/21 21:49 Bite Cells Not Reportable 10/27/21 21:49 Crenated Cell Not Reportable 10/27/21 21:49 Elliptocytes Not Reportable 10/27/21 21:49 Acanthocytes (Spur) Not Reportable 10/27/21 21:49 Rouleaux Not Reportable 10/27/21 21:49 Hemoglobin C Crystals Not Reportable 10/27/21 21:49 Schistocytes Not Reportable 10/27/21 21:49 Malaria parasites Not Reportable 10/27/21 21:49 [place] Bodies Not Reportable 10/27/21 21:49 Hem Pathologist Commnt No 10/27/21 21:49 Sodium 137 mmol/L (137-145) 10/27/21 21:49 Potassium 3.6 mmol/L (3.6-5.0) 10/27/21 21:49 Chloride 102.9 mmol/L (98-107) 10/27/21 21:49 Carbon Dioxide 27 mmol/L (22-30) 10/27/21 21:49 Anion Gap 11 mmol/L 10/27/21 21:49 BUN 9 mg/dL (9-20) 10/27/21 21:49 Creatinine 1.1 mg/dL (0.8-1.3) 10/27/21 21:49 Estimated GFR > 60 ml/min 10/27/21 21:49 BUN/Creatinine Ratio 8 % 10/27/21 21:49 Glucose 79 mg/dL (75-100) 10/27/21 21:49 POC Glucose 85 mg/dL (70-105) 10/27/21 22:43 Hemoglobin A1c 5.9 % (4-6) 10/27/21 21:49 Calcium 8.3 mg/dL (8.4-10.2) L 10/27/21 21:49 Total Bilirubin 0.50 mg/dL (0.1-1.2) 10/27/21 21:49 AST 33 units/L (5-40) 10/27/21 21:49 ALT 17 units/L (7-56) 10/27/21 21:49 Alkaline Phosphatase 77 units/L (35-129) 10/27/21 21:49 Total Protein 7.6 g/dL (6.3-8.2) 10/27/21 21:49 Albumin 2.9 g/dL (3.9-5) L 10/27/21 21:49 Albumin/Globulin Ratio 0.6 % 10/27/21 21:49 Triglycerides 106 mg/dL (2-149) 10/27/21 21:49 Cholesterol 131 mg/dL (50-199) 10/27/21 21:49 LDL Cholesterol Direct 80 mg/dL (50-130) 10/27/21 21:49 HDL Cholesterol 22 mg/dL (40-59) L 10/27/21 21:49 Cholesterol/HDL Ratio 5.95 % 10/27/21 21:49 TSH 0.970 mlU/mL (0.270-4.200) 10/27/21 21:49 Last Vital Signs Temp 99.2 F 10/30/21 22:00 Pulse 104 H 10/30/21 22:00 Resp 22 10/30/21 22:00 BP 138/83 10/30/21 22:00 Pulse Ox 100 10/30/21 22:00
[2021-10-31] MEDS: ARIPiprazole 5 MG TAB PO SCH (09:15)
[2021-10-31] MEDS: DIVALPROEX DR 125 MG TAB PO SCH ×4 (09:16→22:41)
[2021-10-31] MEDS: FOLIC ACID 1 MG TAB PO SCH (09:16)
[2021-10-31] MEDS: PANTOPRAZOLE 40 MG TAB PO SCH ×2 (09:16→16:18)
[2021-10-31] MEDS: ESCITALOPRAM 10 MG TAB PO SCH (09:16)
[2021-10-31] MEDS: chlordiazePOXIDE 25 MG CAP PO SCH ×2 (09:16→22:40)
[2021-10-31] MEDS: MULTIVITAMINS ,THERAPEUTIC TAB PO SCH (09:16)
--- NOTE | 2021-10-31 10:57 | Progress Note ---
Hospitalist Physical - Constitutional Vitals: Temp Pulse Resp BP Pulse Ox 98.4 F 86 18 107/68 91 10/31/21 08:23 10/31/21 08:23 10/31/21 08:23 10/31/21 08:23 10/31/21 08:23 Results - Labs CBC & Chem 7: 10/27/21 21:49 10/27/21 21:49 Labs: Laboratory Last Values WBC 7.3 K/mm3 (4.5-11.0) 10/27/21 21:49 RBC 4.02 M/mm3 (3.65-5.03) 10/27/21 21:49 Hgb 12.5 gm/dl (11.8-15.2) 10/27/21 21:49 Hct 35.4 % (35.5-45.6) L 10/27/21 21:49 MCV 88 fl (84-94) 10/27/21 21:49 MCH 31 pg (28-32) 10/27/21 21:49 MCHC 35 % (32-34) H 10/27/21 21:49 RDW 14.6 % (13.2-15.2) 10/27/21 21:49 Plt Count 240 K/mm3 (140-440) 10/27/21 21:49 [place] % (Auto) Pigeon Fancier 10/27/21 21:49 Add Manual Diff Complete 10/27/21 21:49 Total Counted 100 10/27/21 21:49 Seg Neutrophils % Pigeon Fancier 10/27/21 21:49 Seg Neuts % (Manual) 75.0 % (40.0-70.0) H 10/27/21 21:49 Band Neutrophils % 3.0 % 10/27/21 21:49 Lymphocytes % (Manual) 12.0 % (13.4-35.0) L 10/27/21 21:49 Reactive Lymphs % (Man) 0 % 10/27/21 21:49 Monocytes % (Manual) 10.0 % (0.0-7.3) H 10/27/21 21:49 Eosinophils % (Manual) 0 % (0.0-4.3) 10/27/21 21:49 Basophils % (Manual) 0 % (0.0-1.8) 10/27/21 21:49 Metamyelocytes % 0 % 10/27/21 21:49 Myelocytes % 0 % 10/27/21 21:49 Promyelocytes % 0 % 10/27/21 21:49 Blast Cells % 0 % 10/27/21 21:49 Nucleated RBC % Not Reportable 10/27/21 21:49 Seg Neutrophils # Man 5.5 K/mm3 (1.8-7.7) 10/27/21 21:49 Band Neutrophils # 0.2 K/mm3 10/27/21 21:49 Lymphocytes # (Manual) 0.9 K/mm3 (1.2-5.4) L 10/27/21 21:49 Abs React Lymphs (Man) 0.0 K/mm3 10/27/21 21:49 Monocytes # (Manual) 0.7 K/mm3 (0.0-0.8) 10/27/21 21:49 Eosinophils # (Manual) 0.0 K/mm3 (0.0-0.4) 10/27/21 21:49 Basophils # (Manual) 0.0 K/mm3 (0.0-0.1) 10/27/21 21:49 Metamyelocytes # 0.0 K/mm3 10/27/21 21:49 Myelocytes # 0.0 K/mm3 10/27/21 21:49 Promyelocytes # 0.0 K/mm3 10/27/21 21:49 Blast Cells # 0.0 K/mm3 10/27/21 21:49 WBC Morphology Not Reportable 10/27/21 21:49 Hypersegmented Neuts Not Reportable 10/27/21 21:49 Hyposegmented Neuts Not Reportable 10/27/21 21:49 Hypogranular Neuts Not Reportable 10/27/21 21:49 Smudge Cells Not Reportable 10/27/21 21:49 Toxic Granulation Not Reportable 10/27/21 21:49 Toxic Vacuolation Not Reportable 10/27/21 21:49 Dohle Bodies Not Reportable 10/27/21 21:49 Pelger-Huet Anomaly Not Reportable 10/27/21 21:49 Mu Rods Not Reportable 10/27/21 21:49 Platelet Estimate Consistent w auto 10/27/21 21:49 Clumped Platelets Not Reportable 10/27/21 21:49 Plt Clumps, EDTA Not Reportable 10/27/21 21:49 Large Platelets Few 10/27/21 21:49 Giant Platelets Not Reportable 10/27/21 21:49 Platelet Satelliting Not Reportable 10/27/21 21:49 Plt Morphology Comment Not Reportable 10/27/21 21:49 RBC Morphology Not Reportable 10/27/21 21:49 Dimorphic RBCs Not Reportable 10/27/21 21:49 Polychromasia Not Reportable 10/27/21 21:49 Hypochromasia Not Reportable 10/27/21 21:49 Poikilocytosis Not Reportable 10/27/21 21:49 Anisocytosis 1+ 10/27/21 21:49 Microcytosis Not Reportable 10/27/21 21:49 Macrocytosis Few 10/27/21 21:49 Spherocytes Not Reportable 10/27/21 21:49 Pappenheimer Bodies Not Reportable 10/27/21 21:49 Sickle Cells Not Reportable 10/27/21 21:49 Target Cells Not Reportable 10/27/21 21:49 Tear Drop Cells Not Reportable 10/27/21 21:49 Ovalocytes Not Reportable 10/27/21 21:49 Helmet Cells Not Reportable 10/27/21 21:49 [place] Bodies Not Reportable 10/27/21 21:49 [place] Rings Not Reportable 10/27/21 21:49 Jose Roberto Cells Not Reportable 10/27/21 21:49 Bite Cells Not Reportable 10/27/21 21:49 Crenated Cell Not Reportable 10/27/21 21:49 Elliptocytes Not Reportable 10/27/21 21:49 Acanthocytes (Spur) Not Reportable 10/27/21 21:49 Rouleaux Not Reportable 10/27/21 21:49 Hemoglobin C Crystals Not Reportable 10/27/21 21:49 Schistocytes Not Reportable 10/27/21 21:49 Malaria parasites Not Reportable 10/27/21 21:49 [place] Bodies Not Reportable 10/27/21 21:49 Hem Pathologist Commnt No 10/27/21 21:49 Sodium 137 mmol/L (137-145) 10/27/21 21:49 Potassium 3.6 mmol/L (3.6-5.0) 10/27/21 21:49 Chloride 102.9 mmol/L (98-107) 10/27/21 21:49 Carbon Dioxide 27 mmol/L (22-30) 10/27/21 21:49 Anion Gap 11 mmol/L 10/27/21 21:49 BUN 9 mg/dL (9-20) 10/27/21 21:49 Creatinine 1.1 mg/dL (0.8-1.3) 10/27/21 21:49 Estimated GFR > 60 ml/min 10/27/21 21:49 BUN/Creatinine Ratio 8 % 10/27/21 21:49 Glucose 79 mg/dL (75-100) 10/27/21 21:49 POC Glucose 85 mg/dL (70-105) 10/27/21 22:43 Hemoglobin A1c 5.9 % (4-6) 10/27/21 21:49 Calcium 8.3 mg/dL (8.4-10.2) L 10/27/21 21:49 Total Bilirubin 0.50 mg/dL (0.1-1.2) 10/27/21 21:49 AST 33 units/L (5-40) 10/27/21 21:49 ALT 17 units/L (7-56) 10/27/21 21:49 Alkaline Phosphatase 77 units/L (35-129) 10/27/21 21:49 Total Protein 7.6 g/dL (6.3-8.2) 10/27/21 21:49 Albumin 2.9 g/dL (3.9-5) L 10/27/21 21:49 Albumin/Globulin Ratio 0.6 % 10/27/21 21:49 Triglycerides 106 mg/dL (2-149) 10/27/21 21:49 Cholesterol 131 mg/dL (50-199) 10/27/21 21:49 LDL Cholesterol Direct 80 mg/dL (50-130) 10/27/21 21:49 HDL Cholesterol 22 mg/dL (40-59) L 10/27/21 21:49 Cholesterol/HDL Ratio 5.95 % 10/27/21 21:49 TSH 0.970 mlU/mL (0.270-4.200) 10/27/21 21:49 Clancy/IV: Voiding Method Incontinent Active Medications - Current Medications Current Medications: Generic Name Dose Route Start Last Admin Trade Name Freq PRN Reason Stop Dose Admin Aripiprazole 5 mg 10/28/21 10:00 10/31/21 09:15 Aripiprazole 5 Mg Tab PO 5 mg QDAY GABRIELLE Administration Chlordiazepoxide HCl 25 mg 10/30/21 10:00 10/31/21 09:16 Chlordiazepoxide 25 Mg Cap PO 25 mg BID GABRIELLE Administration Divalproex Sodium 125 mg 10/30/21 14:00 10/31/21 09:[address] 125 Mg Tab PO 125 mg TID GABRIELLE Administration Escitalopram Oxalate 20 mg 10/30/21 11:00 10/31/21 09:16 Escitalopram 10 Mg Tab PO 20 mg QDAY GABRIELLE Administration Folic Acid 1 mg 10/28/21 10:00 10/31/21 09:16 Folic Acid 1 Mg Tab PO 1 mg QDAY GABRIELLE Administration Lorazepam 2 mg 10/30/21 08:30 Lorazepam 2 Mg Tab PO Q4H PRN Alcohol Withdrawal Melatonin 5 mg 10/28/21 08:13 Melatonin 5 Mg Tab PO QHS PRN Sleep Mirtazapine 7.5 mg 10/30/21 22:00 10/30/21 22:02 Mirtazapine 15 Mg Tab PO 7.5 mg QHS GABRIELLE Administration Multivitamins 1 each 10/28/21 10:00 10/31/21 09:16 Multivitamins ,Therapeutic Tab PO 1 each QDAY GABRIELLE Administration Ondansetron HCl 4 mg 10/28/21 21:49 Ondansetron 4 Mg Odt Tab PO Q4H PRN Nausea And Vomiting Pantoprazole Sodium 40 mg 10/29/21 16:30 10/31/21 09:16 Pantoprazole 40 Mg Tab PO 40 mg BIDAC GABRIELLE Administration Trazodone HCl 50 mg 10/27/21 22:00 10/30/21 22:06 Trazodone 50 Mg Tab PO Not Given QHS GABRIELLE
[2021-10-31] MEDS: MIRTAZAPINE 15 MG TAB PO SCH (22:39)
[2021-10-31] MEDS: traZODone 50 MG TAB PO SCH (22:40)
[2021-10-31 23:07] LABS: Hematocrit 37.3 % (35.5-45.6); Hemoglobin 12.2 gm/dl (11.8-15.2); Mean Corpuscular HGB Conc 33 % (32-34); Mean Corpuscular Volume 89 fl (84-94); Platelet Count 276 K/mm3 (140-440); Red Blood Count 4.17 M/mm3 (3.65-5.03); Red Cell Distribution Width 14.1 % (13.2-15.2)
[2021-10-31 23:17] LABS: Alanine Aminotransferase 39 units/L (7-56); Albumin 2.6 g/dL (3.9-5); BUN/Creatinine Ratio 18; Blood Urea Nitrogen 16 mg/dL (9-20); Hemolysis Index 40
[2021-11-01 00:20] LABS: Basophils % (Manual) 0 % (0.0-1.8); Total Cells Counted 100
[2021-11-01 00:21] LABS: Platelet Estimate Consistent w Auto
[2021-11-01] MEDS: PANTOPRAZOLE 40 MG TAB PO SCH (07:45)
[2021-11-01] MEDS: DIVALPROEX DR 125 MG TAB PO SCH (08:00)
[2021-11-01 08:54] VITALS: BP 128/83
--- NOTE | 2021-11-01 09:10 | Progress Note ---
Subjective Date of service: 11/01/21 Principal diagnosis: MDD Subjective Comment: The patient was seen today. He is lying in bed. He arouses but appears out of it. He does say he's okay when asked. The patient moans at times. Nursing staff states the patient's intake is poor and he has been coughing with congestion. Labs ordered, and nurse spoke to hospitalist to get the patient moved to medical. REVIEW OF SYSTEMS Coughing MENTAL STATUS EXAMINATION Unable to assess Diagnoses: Major Depressive Disorder Treatment Plan Patient admitted for inpatient psychiatric evaluation, medication adjustment and close monitoring The patient's behavior, mood, sleep and appetite will be closely monitored. Patient enrolled in individual and group therapeutic sessions and encouraged to attend. Patient provided with a safe and structured environment. Patient's physical health needs will be addressed by the Hospitalist. Hospitalist Consulted Labs including CBC, CMP, Lipid profile and Hemoglobin A1C levels ordered for baseline reference Social Assessment will be completed and the Head Gauge Unit Operator will work with patient and family to ensure a suitable and safe disposition Medication adjustment will be made as clinically indicated Usual Wellness Rastafarian/Preservation: - Start Trazodone 50 mg po QHS & 50 mg po QHS PRN between 10 PM & 2 AM for insomnia - Start Melatonin 5 mg po QHS to promote circadian rhythm The patient agreed on the treatment plan, understood the risk, benefit, alternative treatment, potential consequence of no treatment, and gave informed consent. Estimated days: 7 Post hospital care: primary care provider, psychiatric provider Case staffed with Dr. Segovia Medications and Allergies Allergies Allergy/AdvReac Type Severity Reaction Status Date / Time No Known Drug Allergies Allergy Unknown Verified 10/27/21 20:44 Home Medications Medication Instructions Recorded Confirmed Last Taken Type Sulfamethoxazole/Trimethoprim 1 each PO BID 10/28/21 10/28/21 Unknown History [Sulfamethoxazole-Tmp Ds Tablet] Active Meds: Active Medications Aripiprazole (Aripiprazole 5 Mg Tab) 5 mg PO QDAY [facility] Last Admin: 10/31/21 09:15 Dose: 5 mg Chlordiazepoxide HCl (Chlordiazepoxide 25 Mg Cap) 25 mg PO BID [facility] Last Admin: 10/31/21 22:40 Dose: 25 mg Divalproex Sodium (Divalproex Dr 125 Mg Tab) 125 mg PO TID [facility] Last Admin: 10/31/21 22:41 Dose: 125 mg Escitalopram Oxalate (Escitalopram 10 Mg Tab) 20 mg PO QDAY [facility] Last Admin: 10/31/21 09:16 Dose: 20 mg Folic Acid (Folic Acid 1 Mg Tab) 1 mg PO QDAY [facility] Last Admin: 10/31/21 09:16 Dose: 1 mg Lorazepam (Lorazepam 2 Mg Tab) 2 mg PO Q4H PRN PRN Reason: Alcohol Withdrawal Melatonin (Melatonin 5 Mg Tab) 5 mg PO QHS PRN PRN Reason: Sleep Mirtazapine (Mirtazapine 15 Mg Tab) 7.5 mg PO QHS [facility] Last Admin: 10/31/21 22:39 Dose: 7.5 mg Multivitamins (Multivitamins ,Therapeutic Tab) 1 each PO QDAY [facility] Last Admin: 10/31/21 09:16 Dose: 1 each Ondansetron HCl (Ondansetron 4 Mg Odt Tab) 4 mg PO Q4H PRN PRN Reason: Nausea And Vomiting Last Admin: 10/31/21 15:35 Dose: 4 mg Pantoprazole Sodium (Pantoprazole 40 Mg Tab) 40 mg PO BIDAC [facility] Last Admin: 10/31/21 16:18 Dose: 40 mg Trazodone HCl (Trazodone 50 Mg Tab) 50 mg PO QHS [facility] Last Admin: 10/31/21 22:40 Dose: 50 mg Results - Results Labs/Vitals: Laboratory Last Values WBC 11.9 K/mm3 (4.5-11.0) H 10/31/21 22:40 RBC 4.17 M/mm3 (3.65-5.03) 10/31/21 22:40 Hgb 12.2 gm/dl (11.8-15.2) 10/31/21 22:40 Hct 37.3 % (35.5-45.6) 10/31/21 22:40 MCV 89 fl (84-94) 10/31/21 22:40 MCH 29 pg (28-32) 10/31/21 22:40 MCHC 33 % (32-34) 10/31/21 22:40 RDW 14.1 % (13.2-15.2) 10/31/21 22:40 Plt Count 276 K/mm3 (140-440) 10/31/21 22:40 [place] % (Auto) Purchasing Manager 10/31/21 22:40 Add Manual Diff Complete 10/31/21 22:40 Total Counted 100 10/31/21 22:40 Seg Neutrophils % Purchasing Manager 10/31/21 22:40 Seg Neuts % (Manual) 60.0 % (40.0-70.0) 10/31/21 22:40 Band Neutrophils % 0 % 10/31/21 22:40 Lymphocytes % (Manual) 1.0 % (13.4-35.0) L 10/31/21 22:40 Reactive Lymphs % (Man) 0 % 10/31/21 22:40 Monocytes % (Manual) 37.0 % (0.0-7.3) H 10/31/21 22:40 Eosinophils % (Manual) 2.0 % (0.0-4.3) 10/31/21 22:40 Basophils % (Manual) 0 % (0.0-1.8) 10/31/21 22:40 Metamyelocytes % 0 % 10/31/21 22:40 Myelocytes % 0 % 10/31/21 22:40 Promyelocytes % 0 % 10/31/21 22:40 Blast Cells % 0 % 10/31/21 22:40 Nucleated RBC % Not Reportable 10/31/21 22:40 Seg Neutrophils # Man 7.1 K/mm3 (1.8-7.7) 10/31/21 22:40 Band Neutrophils # 0.0 K/mm3 10/31/21 22:40 Lymphocytes # (Manual) 0.1 K/mm3 (1.2-5.4) L 10/31/21 22:40 Abs React Lymphs (Man) 0.0 K/mm3 10/31/21 22:40 Monocytes # (Manual) 4.4 K/mm3 (0.0-0.8) H 10/31/21 22:40 Eosinophils # (Manual) 0.2 K/mm3 (0.0-0.4) 10/31/21 22:40 Basophils # (Manual) 0.0 K/mm3 (0.0-0.1) 10/31/21 22:40 Metamyelocytes # 0.0 K/mm3 10/31/21 22:40 Myelocytes # 0.0 K/mm3 10/31/21 22:40 Promyelocytes # 0.0 K/mm3 10/31/21 22:40 Blast Cells # 0.0 K/mm3 10/31/21 22:40 WBC Morphology Not Reportable 10/31/21 22:40 Hypersegmented Neuts Not Reportable 10/31/21 22:40 Hyposegmented Neuts Not Reportable 10/31/21 22:40 Hypogranular Neuts Not Reportable 10/31/21 22:40 Smudge Cells Not Reportable 10/31/21 22:40 Toxic Granulation Not Reportable 10/31/21 22:40 Toxic Vacuolation Not Reportable 10/31/21 22:40 Dohle Bodies Not Reportable 10/31/21 22:40 Pelger-Huet Anomaly Not Reportable 10/31/21 22:40 Mu Rods Not Reportable 10/31/21 22:40 Platelet Estimate Consistent w auto 10/31/21 22:40 Clumped Platelets Not Reportable 10/31/21 22:40 Plt Clumps, EDTA Not Reportable 10/31/21 22:40 Large Platelets Not Reportable 10/31/21 22:40 Giant Platelets Not Reportable 10/31/21 22:40 Platelet Satelliting Not Reportable 10/31/21 22:40 Plt Morphology Comment Not Reportable 10/31/21 22:40 RBC Morphology Not Reportable 10/31/21 22:40 Dimorphic RBCs Not Reportable 10/31/21 22:40 Polychromasia Not Reportable 10/31/21 22:40 Hypochromasia Not Reportable 10/31/21 22:40 Poikilocytosis Not Reportable 10/31/21 22:40 Anisocytosis Not Reportable 10/31/21 22:40 Microcytosis Not Reportable 10/31/21 22:40 Macrocytosis Not Reportable 10/31/21 22:40 Spherocytes Not Reportable 10/31/21 22:40 Pappenheimer Bodies Not Reportable 10/31/21 22:40 Sickle Cells Not Reportable 10/31/21 22:40 Target Cells Not Reportable 10/31/21 22:40 Tear Drop Cells Not Reportable 10/31/21 22:40 Ovalocytes Not Reportable 10/31/21 22:40 Helmet Cells Not Reportable 10/31/21 22:40 Liu-[place] Bodies Not Reportable 10/31/21 22:40 [place] Rings Not Reportable 10/31/21 22:40 Jose Roberto Cells Not Reportable 10/31/21 22:40 Bite Cells Not Reportable 10/31/21 22:40 Crenated Cell Not Reportable 10/31/21 22:40 Elliptocytes Not Reportable 10/31/21 22:40 Acanthocytes (Spur) Not Reportable 10/31/21 22:40 Rouleaux Not Reportable 10/31/21 22:40 Hemoglobin C Crystals Not Reportable 10/31/21 22:40 Schistocytes Not Reportable 10/31/21 22:40 Malaria parasites Not Reportable 10/31/21 22:40 [place] Bodies Not Reportable 10/31/21 22:40 Hem Pathologist Commnt No 10/31/21 22:40 Sodium 133 mmol/L (137-145) L 10/31/21 22:40 Potassium 4.2 mmol/L (3.6-5.0) 10/31/21 22:40 Chloride 100.2 mmol/L (98-107) 10/31/21 22:40 Carbon Dioxide 19 mmol/L (22-30) L D 10/31/21 22:40 Anion Gap 18 mmol/L 10/31/21 22:40 BUN 16 mg/dL (9-20) 10/31/21 22:40 Creatinine 0.9 mg/dL (0.8-1.3) 10/31/21 22:40 Estimated GFR > 60 ml/min 10/31/21 22:40 BUN/Creatinine Ratio 18 % 10/31/21 22:40 Glucose 79 mg/dL (75-100) 10/31/21 22:40 POC Glucose 85 mg/dL (70-105) 10/31/21 20:13 Hemoglobin A1c 5.9 % (4-6) 10/27/21 21:49 Calcium 8.0 mg/dL (8.4-10.2) L 10/31/21 22:40 Total Bilirubin 0.60 mg/dL (0.1-1.2) 10/31/21 22:40 AST 64 units/L (5-40) H 10/31/21 22:40 ALT 39 units/L (7-56) 10/31/21 22:40 Alkaline Phosphatase 78 units/L (35-129) 10/31/21 22:40 Total Protein 7.9 g/dL (6.3-8.2) 10/31/21 22:40 Albumin 2.6 g/dL (3.9-5) L 10/31/21 22:40 Albumin/Globulin Ratio 0.5 % 10/31/21 22:40 Triglycerides 106 mg/dL (2-149) 10/27/21 21:49 Cholesterol 131 mg/dL (50-199) 10/27/21 21:49 LDL Cholesterol Direct 80 mg/dL (50-130) 10/27/21 21:49 HDL Cholesterol 22 mg/dL (40-59) L 10/27/21 21:49 Cholesterol/HDL Ratio 5.95 % 10/27/21 21:49 TSH 0.970 mlU/mL (0.270-4.200) 10/27/21 21:49 Last Vital Signs Temp 98.1 F 11/01/21 08:00 Pulse 101 H 11/01/21 08:00 Resp 16 11/01/21 08:00 BP 128/83 11/01/21 08:00 Pulse Ox 95 11/01/21 08:00
[2021-11-01] MEDS: MULTIVITAMINS ,THERAPEUTIC TAB PO SCH (10:00)
[2021-11-01] MEDS: chlordiazePOXIDE 25 MG CAP PO SCH (10:00)
[2021-11-01] MEDS: ARIPiprazole 5 MG TAB PO SCH (10:00)
[2021-11-01] MEDS: ESCITALOPRAM 10 MG TAB PO SCH (10:00)
[2021-11-01] MEDS: FOLIC ACID 1 MG TAB PO SCH (10:00)
--- NOTE | 2021-11-01 11:14 | XRay Report ---
CHEST 2 VIEWS INDICATION: cough/ congestion. COMPARISON: None FINDINGS: SUPPORT DEVICES: None. HEART: Within normal limits. LUNGS/PLEURA: Mild diffuse interstitial prominence with no dense consolidation or pleural effusion. No pneumothorax. ADDITIONAL FINDINGS: None. IMPRESSION: 1. Lung findings as above. Signer Name: Mehrdad Alford MD Signed: 11/01/2021 11:10 AM Workstation Name: [id number]
--- NOTE | 2021-11-01 11:27 | Cat Scan Report ---
CT head/brain wo con INDICATION: change in LOC. TECHNIQUE: CT head. All CT scans at this location are performed using CT dose reduction for ALARA by means of automated exposure control. COMPARISON: None. FINDINGS: Intracranial: [place]-white matter differentiation is maintained. No intracranial hemorrhage. No extra a xial collection. No hydrocephalus. No herniation. Sinuses: Paranasal sinuses and mastoid air cells are essentially clear. Orbits: Globes are intact. Calvarium: No acute fracture. IMPRESSION: 1. No acute intracranial abnormality. Signer Name: Qasim Singletary MD Signed: 11/01/2021 11:23 AM Workstation Name: [id number]
--- NOTE | 2021-11-01 11:47 | Discharge Summary ---
Providers - Providers Date of Admission: 10/27/21 21:14 Date of discharge: 11/01/21 Attending physician: FEDE MARTINEZ MD 10/27/21 15:39 Consult to Physician [CONS] Routine Comment: Consulting Provider: CATHERINE VALENZUELA Physician Instructions: Reason For Exam: manage medical conditons Primary care physician: FAMILY AND CONSUMER SCIENCES PROFESSOR Hospitalization Reason for admission: depression Admitting Diagnosis: F33.1 - MAJOR DEPRESSIVE DISORDER, RECURRENT, MODERATE Condition: Stable Disposition: 02 SHORT TERM [facility]OSP[facility] Time spent for discharge: 45 Allergies/Adverse Reactions: Allergies No Known Drug Allergies Allergy (Verified 10/27/21 20:44) Unknown Vital Signs: Last Vital Signs Temp 98.1 F 11/01/21 08:00 Pulse 101 H 11/01/21 08:00 Resp 16 11/01/21 08:00 BP 128/83 11/01/21 08:00 Pulse Ox 95 11/01/21 08:00 Last Lab: Laboratory Last Values WBC 11.9 K/mm3 (4.5-11.0) H 10/31/21 22:40 RBC 4.17 M/mm3 (3.65-5.03) 10/31/21 22:40 Hgb 12.2 gm/dl (11.8-15.2) 10/31/21 22:40 Hct 37.3 % (35.5-45.6) 10/31/21 22:40 MCV 89 fl (84-94) 10/31/21 22:40 MCH 29 pg (28-32) 10/31/21 22:40 MCHC 33 % (32-34) 10/31/21 22:40 RDW 14.1 % (13.2-15.2) 10/31/21 22:40 Plt Count 276 K/mm3 (140-440) 10/31/21 22:40 [place] % (Auto) Dry Cleaner Helper 10/31/21 22:40 Add Manual Diff Complete 10/31/21 22:40 Total Counted 100 10/31/21 22:40 Seg Neutrophils % Dry Cleaner Helper 10/31/21 22:40 Seg Neuts % (Manual) 60.0 % (40.0-70.0) 10/31/21 22:40 Band Neutrophils % 0 % 10/31/21 22:40 Lymphocytes % (Manual) 1.0 % (13.4-35.0) L 10/31/21 22:40 Reactive Lymphs % (Man) 0 % 10/31/21 22:40 Monocytes % (Manual) 37.0 % (0.0-7.3) H 10/31/21 22:40 Eosinophils % (Manual) 2.0 % (0.0-4.3) 10/31/21 22:40 Basophils % (Manual) 0 % (0.0-1.8) 10/31/21 22:40 Metamyelocytes % 0 % 10/31/21 22:40 Myelocytes % 0 % 10/31/21 22:40 Promyelocytes % 0 % 10/31/21 22:40 Blast Cells % 0 % 10/31/21 22:40 Nucleated RBC % Not Reportable 10/31/21 22:40 Seg Neutrophils # Man 7.1 K/mm3 (1.8-7.7) 10/31/21 22:40 Band Neutrophils # 0.0 K/mm3 10/31/21 22:40 Lymphocytes # (Manual) 0.1 K/mm3 (1.2-5.4) L 10/31/21 22:40 Abs React Lymphs (Man) 0.0 K/mm3 10/31/21 22:40 Monocytes # (Manual) 4.4 K/mm3 (0.0-0.8) H 10/31/21 22:40 Eosinophils # (Manual) 0.2 K/mm3 (0.0-0.4) 10/31/21 22:40 Basophils # (Manual) 0.0 K/mm3 (0.0-0.1) 10/31/21 22:40 Metamyelocytes # 0.0 K/mm3 10/31/21 22:40 Myelocytes # 0.0 K/mm3 10/31/21 22:40 Promyelocytes # 0.0 K/mm3 10/31/21 22:40 Blast Cells # 0.0 K/mm3 10/31/21 22:40 WBC Morphology Not Reportable 10/31/21 22:40 Hypersegmented Neuts Not Reportable 10/31/21 22:40 Hyposegmented Neuts Not Reportable 10/31/21 22:40 Hypogranular Neuts Not Reportable 10/31/21 22:40 Smudge Cells Not Reportable 10/31/21 22:40 Toxic Granulation Not Reportable 10/31/21 22:40 Toxic Vacuolation Not Reportable 10/31/21 22:40 Dohle Bodies Not Reportable 10/31/21 22:40 Pelger-Huet Anomaly Not Reportable 10/31/21 22:40 Mu Rods Not Reportable 10/31/21 22:40 Platelet Estimate Consistent w auto 10/31/21 22:40 Clumped Platelets Not Reportable 10/31/21 22:40 Plt Clumps, EDTA Not Reportable 10/31/21 22:40 Large Platelets Not Reportable 10/31/21 22:40 Giant Platelets Not Reportable 10/31/21 22:40 Platelet Satelliting Not Reportable 10/31/21 22:40 Plt Morphology Comment Not Reportable 10/31/21 22:40 RBC Morphology Not Reportable 10/31/21 22:40 Dimorphic RBCs Not Reportable 10/31/21 22:40 Polychromasia Not Reportable 10/31/21 22:40 Hypochromasia Not Reportable 10/31/21 22:40 Poikilocytosis Not Reportable 10/31/21 22:40 Anisocytosis Not Reportable 10/31/21 22:40 Microcytosis Not Reportable 10/31/21 22:40 Macrocytosis Not Reportable 10/31/21 22:40 Spherocytes Not Reportable 10/31/21 22:40 Pappenheimer Bodies Not Reportable 10/31/21 22:40 Sickle Cells Not Reportable 10/31/21 22:40 Target Cells Not Reportable 10/31/21 22:40 Tear Drop Cells Not Reportable 10/31/21 22:40 Ovalocytes Not Reportable 10/31/21 22:40 Helmet Cells Not Reportable 10/31/21 22:40 Liu-[place] Bodies Not Reportable 10/31/21 22:40 [place] Rings Not Reportable 10/31/21 22:40 [place] Cells Not Reportable 10/31/21 22:40 Bite Cells Not Reportable 10/31/21 22:40 Crenated Cell Not Reportable 10/31/21 22:40 Elliptocytes Not Reportable 10/31/21 22:40 Acanthocytes (Spur) Not Reportable 10/31/21 22:40 Rouleaux Not Reportable 10/31/21 22:40 Hemoglobin C Crystals Not Reportable 10/31/21 22:40 Schistocytes Not Reportable 10/31/21 22:40 Malaria parasites Not Reportable 10/31/21 22:40 [place] Bodies Not Reportable 10/31/21 22:40 Hem Pathologist Commnt No 10/31/21 22:40 Sodium 133 mmol/L (137-145) L 10/31/21 22:40 Potassium 4.2 mmol/L (3.6-5.0) 10/31/21 22:40 Chloride 100.2 mmol/L (98-107) 10/31/21 22:40 Carbon Dioxide 19 mmol/L (22-30) L D 10/31/21 22:40 Anion Gap 18 mmol/L 10/31/21 22:40 BUN 16 mg/dL (9-20) 10/31/21 22:40 Creatinine 0.9 mg/dL (0.8-1.3) 10/31/21 22:40 Estimated GFR > 60 ml/min 10/31/21 22:40 BUN/Creatinine Ratio 18 % 10/31/21 22:40 Glucose 79 mg/dL (75-100) 10/31/21 22:40 POC Glucose 85 mg/dL (70-105) 10/31/21 20:13 Hemoglobin A1c 5.9 % (4-6) 10/27/21 21:49 Calcium 8.0 mg/dL (8.4-10.2) L 10/31/21 22:40 Total Bilirubin 0.60 mg/dL (0.1-1.2) 10/31/21 22:40 AST 64 units/L (5-40) H 10/31/21 22:40 ALT 39 units/L (7-56) 10/31/21 22:40 Alkaline Phosphatase 78 units/L (35-129) 10/31/21 22:40 Total Protein 7.9 g/dL (6.3-8.2) 10/31/21 22:40 Albumin 2.6 g/dL (3.9-5) L 10/31/21 22:40 Albumin/Globulin Ratio 0.5 % 10/31/21 22:40 Triglycerides 106 mg/dL (2-149) 10/27/21 21:49 Cholesterol 131 mg/dL (50-199) 10/27/21 21:49 LDL Cholesterol Direct 80 mg/dL (50-130) 10/27/21 21:49 HDL Cholesterol 22 mg/dL (40-59) L 10/27/21 21:49 Cholesterol/HDL Ratio 5.95 % 10/27/21 21:49 TSH 0.970 mlU/mL (0.270-4.200) 10/27/21 21:49 Core Measure Documentation - Palliative Care Palliative Care/ Comfort Measures: Not Applicable - Core Measures Any of the following diagnoses?: none Exam - Constitutional Vitals: Temp Pulse Resp BP Pulse Ox 98.1 F 101 H 16 128/83 95 11/01/21 08:00 11/01/21 08:00 11/01/21 08:00 11/01/21 08:00 11/01/21 08:00 General appearance: Present: no acute distress - EENT Eyes: Present: PERRL, EOM intact ENT: hearing intact, clear oral mucosa - Neck Neck: Present: supple, normal ROM - Respiratory Respiratory effort: normal Plan Activity: advance as tolerated Weight Bearing Status: Weight Bear as Tolerated Care Plan Goals: maintain good and stable mental health Assessment: MDD Follow up with: PRIMARY CARE, [Primary Care Provider] - 7 Days
[2021-11-02 00:23] LABS: Hematocrit 36.7 % (35.5-45.6); Hemoglobin 12.2 gm/dl (11.8-15.2); Mean Corpuscular HGB Conc 33 % (32-34); Mean Corpuscular Volume 90 fl (84-94); Platelet Count 270 K/mm3 (140-440); Red Blood Count 4.09 M/mm3 (3.65-5.03); Red Cell Distribution Width 14.2 % (13.2-15.2)
[2021-11-02 00:48] LABS: BUN/Creatinine Ratio 20; Blood Urea Nitrogen 18 mg/dL (9-20); Calcium 7.9 mg/dL (8.4-10.2); Hemolysis Index 2
[2021-11-02 02:15] LABS: Anisocytosis 1+; Band Neutrophils # (Manual) 0.5 K/mm3; Basophils % (Manual) 0 % (0.0-1.8); Eosinophils % (Manual) 0 % (0.0-4.3); Hypochromasia 1+; Platelet Estimate Consistent w Auto; Total Cells Counted 100
== END 2021-11-01 13:56 | disposition short-term general hospital (02) | DRG 885 ==
LOC: 3A 15:31 → UNDOADMIN 15:31 → 5A 21:14 → EDBD 21:14
PROVIDERS: ADMIT Psychiatry & Neurology Psychiatry; ATTEND Psychiatry & Neurology Psychiatry
DX: F20.9 Schizophrenia, unspecified (principal); F33.1 Major depressive disorder, recurrent, moderate; F14.10 Cocaine abuse, uncomplicated; F39 Unspecified mood [affective] disorder; F41.9 Anxiety disorder, unspecified; F10.139 Alcohol abuse with withdrawal, unspecified
CPT/HCPCS: 36415; 70450; 71046; 80048; 80053; 80061; 82962; 83036; 84443; 85007; 85025; G0378; J3490; J2060; Q0162

== ENCOUNTER 2021-11-01 12:17 | Inpatient (IN) | payer MEDICAID ==
[2021-11-01] MEDS ORDERED: HYDROmorphone 0.5 MG/0.5 ML INJ IV PRN (12:23)
[2021-11-01] MEDS ORDERED: ACETAMINOPHEN 325 MG TAB PO PRN (12:23)
[2021-11-01] MEDS ORDERED: ALBUTEROL 2.5 MG/3 ML NEBU IH PRN (12:23)
[2021-11-01] MEDS ORDERED: oxyCODONE /ACETAMINOPHEN 5-325MG TAB PO PRN (12:23)
[2021-11-01] MEDS ORDERED: ONDANSETRON 4 MG/2 ML INJ IV PRN (12:23)
--- NOTE | 2021-11-01 12:26 | History and Physical Report ---
History of Present Illness Date of admission: 11/01/21 12:17 Chief complaint: He is weak and coughing now History of present illness: 61 YO Male with Vascular Dementia, Cerebral Atherosclerosis, ETOH Dependence, MDD, Schizophrenia, HIV Disease noncompliant with antiretroviral therapy initial ly admitted to [facility] for psychiatric stabilization. Patient experienced increased weakness and dry cough, and decreased responsiveness during admission. Patient was seen and evaluated and underwent chest x-ray and was found to have pneumonia. Patient discharged from [facility] and admitted directly to medical floor. Patient seen and evaluated upon arrival to his room. Patient confused with diminished cognition. No reports of fever, chills, chest pain, palpitation, skin rash, recent contact, known exposure to COVID-19. No prior admission for review. All medication listed at time of admission has been reconciled. Advanced care planning conducted. Past History Past Medical History: COPD, hepatitis, HIV/AIDS, hypertension Past Surgical History: Other (Finger surgery) Social history: single. denies: smoking, alcohol abuse, prescription drug abuse Family history: diabetes, hypertension Medications and Allergies Allergies Allergy/AdvReac Type Severity Reaction Status Date / Time No Known Drug Allergies Allergy Unknown Verified 10/27/21 20:44 Home Medications Medication Instructions Recorded Confirmed Last Taken Type No Known Home Medications [No 11/01/21 11/01/21 Unknown History Reported Home Medications] Active Meds: Active Medications Acetaminophen (Acetaminophen 325 Mg Tab) 650 mg PO Q4H PRN PRN Reason: Pain MILD(1-3)/Fever >100.5/ROSARIO Albuterol (Albuterol 2.5 Mg/3 Ml Nebu) 2.5 mg IH Q4HRT PRN PRN Reason: Shortness Of Breath Azithromycin (Azithromycin 250 Mg Tab) 500 mg PO QDAY GABRIELLE; Protocol Hydromorphone HCl (Hydromorphone 0.5 Mg/0.5 Ml Inj) 0.5 mg IV Q13H PRN PRN Reason: Pain , Severe (7-10) Sodium Chloride (Nacl 0.9% 1000 Ml) 1,000 mls @ 75 mls/hr IV DIRECT GABRIELLE Ceftriaxone Sodium (Rocephin/Ns 2 Gm/100 Ml) 2 gm in 100 mls @ 200 mls/hr IV Q24H GABRIELLE; Protocol Ondansetron HCl (Ondansetron 4 Mg/2 Ml Inj) 4 mg IV Q8H PRN PRN Reason: Nausea And Vomiting Oxycodone/Acetaminophen (Oxycodone /Acetaminophen 5-325mg Tab) 1 tab PO Q6H PRN PRN Reason: Pain, Moderate (4-6) Sodium Chloride (Sodium Chloride 0.9% 10 Ml Flush Syringe) 10 ml IV BID GABRIELLE Sodium Chloride (Sodium Chloride 0.9% 10 Ml Flush Syringe) 10 ml IV PRN PRN PRN Reason: LINE FLUSH Review of Systems ROS unobtainable: due to mental status Exam - Constitutional General appearance: Present: mild distress, cachectic - EENT Eyes: Present: PERRL ENT: hearing intact, clear oral mucosa, hearing decreased - Neck Neck: Present: supple, normal ROM - Respiratory Respiratory effort: labored Respiratory: bilateral: diminished, rhonchi - Cardiovascular Heart Sounds: Present: S1 & S2. Absent: rub, click - Extremities Extremities: pulses symmetrical, No edema Peripheral Pulses: within normal limits - Abdominal General gastrointestinal: Present: soft, non-tender, non-distended, normal bowel sounds Male genitourinary: Present: normal - Integumentary Integumentary: Present: clear, dry - Musculoskeletal Musculoskeletal: generalized weakness - Psychiatric Psychiatric: no appropriate mood/affect, no intact judgment & insight, no memory intact - Neurologic Neurologic: no CNII-XII intact, no focal deficits, moves all extremities, no gait normal Assessment and Plan - Patient Problems (1) Pneumonia Current Visit: Yes Status: Acute Plan to address problem: Pneumonia protocol: Chest x-ray, CBC, IV antibiotic therapy, supplemental oxygen, pulse oximetry, nebulizer therapy. (2) Acute encephalopathy Current Visit: Yes Status: Acute Plan to address problem: CT scan head, IV fluid resuscitation therapy, neuro check, supportive care. (3) HIV disease Current Visit: Yes Status: Acute Plan to address problem: Outpatient infectious disease service follow-up. (4) Hypertension Current Visit: Yes Status: Acute Qualifiers: Hypertension type: primary hypertension Qualified Code(s): I10 - Essential (primary) hypertension Plan to address problem: Monitor blood pressure every shift, continue medical management. (5) COPD (chronic obstructive pulmonary disease) Current Visit: Yes Status: Acute Qualifiers: COPD type: COPD with acute lower respiratory infection Qualified Code(s): J44.0 - Chronic obstructive pulmonary disease with (acute) lower respiratory infection Plan to address problem: Supplemental oxygen, pulse oximetry, nebulizer therapy, pulmonary toilet. (6) Hepatitis Current Visit: Yes Status: Acute Plan to address problem: Chronic, outpatient GI follow-up. (7) Vascular dementia Current Visit: Yes Status: Acute Qualifiers: Dementia behavioral disturbance: with behavioral disturbance Qualified Code(s): F01.51 - Vascular dementia with behavioral disturbance Plan to address problem: Verbal prompting, verbal redirection, benzodiazepine therapy as clinically indicated. (8) Cerebral atherosclerosis Current Visit: Yes Status: Acute Plan to address problem: Antiplatelet therapy as clinically indicated, risk factor reduction. (9) Malnutrition Current Visit: Yes Status: Acute Qualifiers: Protein-calorie malnutrition severity: severe Plan to address problem: Increase protein intake, dietary supplementation when awake and alert only. (10) DVT prophylaxis Current Visit: Yes Status: Acute Plan to address problem: SCD to bilateral lower extremities while in bed (11) Advance care planning Current Visit: Yes Status: Acute Plan to address problem: Disease education data, care plan discussed, diagnoses discussed, prognosis discussed, patient is full code, +30 minutes. (12) Preventative health care Current Visit: Yes Status: Acute Plan to address problem: Patient to follow-up with primary care physician for all age and risk factor kari ropriate screening test. Patient to follow-up with infectious disease service as outpatient for further care. +30 minutes.
[2021-11-01] MEDS: AZITHROMYCIN 250 MG TAB PO SCH (16:12)
[2021-11-01] MEDS: cefTRIAXone/NS 2 GM/100 ML 2 GM/100 ML BAG IV SCH (16:13)
[2021-11-01] MEDS: SODIUM CHLORIDE 0.9% 1000 ML 1,000 ML IV SCH (16:13)
[2021-11-01] MEDS ORDERED: ACETAMINOPHEN 650 MG RECT SUPP PR PRN (18:18)
[2021-11-02] MEDS: SODIUM CHLORIDE 0.9% 1000 ML 1,000 ML IV SCH ×2 (05:55→22:29)
[2021-11-02 06:53] LABS: Hemoglobin 13.1 gm/dl (11.8-15.2); Mean Corpuscular HGB Conc 33 % (32-34); Mean Corpuscular Volume 92 fl (84-94); Red Blood Count 4.37 M/mm3 (3.65-5.03); Red Cell Distribution Width 14.2 % (13.2-15.2)
[2021-11-02 06:57] LABS: Platelet Count 286 K/mm3 (140-440)
[2021-11-02 07:07] LABS: BUN/Creatinine Ratio 23; Blood Urea Nitrogen 18 mg/dL (9-20); Calcium 7.8 mg/dL (8.4-10.2); Hemolysis Index 46
[2021-11-02 07:56] LABS: Anisocytosis 1+; Band Neutrophils # (Manual) 0.2 K/mm3; Basophils % (Manual) 0 % (0.0-1.8); Hypersegmented Neutrophils Rare; Platelet Estimate Consistent w Auto; Total Cells Counted 100
--- NOTE | 2021-11-02 08:24 | Progress Note ---
Assessment and Plan Assessment and plan: #Pneumonia-viral versus bacterial cause #COVID-19 infection -CXR reviewed -COVID PCR positive -Patient noted to have oxygen saturation as low as 90%, will start dexamethasone & remdesivir -Continue Rocephin and azithromycin for now -D-dimer, LDH and ferritin ordered -Infectious disease consulted, assistance appreciated #Acute metabolic encephalopathy-resolved -CT head negative -likely due to illness #HIV disease -Not currently taking antiretroviral drugs -CD4 count ordered -Follow-up with ID outpatient #Oral candidiasis -Nystatin swish and swallow 4 times daily #Schizophrenia #Unspecified mood disorder #Anxiety depression -continue lexapro and depakote -Psychiatry following, assistance appreciated #Alcohol abuse #Alcoholic withdrawals - continue librium taper - behavioral health counseling administered which included education on benefits of alcohol cessation as well as options for quitting. +15 min #moderate protein calorie malnutrition -albumin 2.6 -likely secondary to ETOH abuse #Advance care planning -Disease education conducted, care plan discussed, diagnoses discussed, prog nosis discussed, patient is full code, patient acknowledges understanding and agree with care plan, +30 minutes. History Interval history: No acute events overnight. Patient alert to person, place and situation. He is hungry and requests food. He was noted to have thrush and endorses odynophagia. He is not taking any antiretrovirals for the last 6 months due to excessive drinking. Hospitalist Physical - Physical exam Narrative exam: GENERAL: Cachectic male. In no acute distress. HEENT: Normocephalic. Atraumatic. NECK: Supple. CHEST/LUNGS: CTAB on room air HEART/CARDIOVASCULAR: RRR. No murmur, rubs or gallops appreciated. ABDOMEN: +BS. NT/ND. SKIN: No rashes noted. NEURO: No focal motor deficit. Follows all commands. MUSCULOSKELETAL: No joint effusion EXTREMITIES: No cyanosis, clubbing or edema. PSYCH: Cooperative. - Constitutional Vitals: Temp Pulse Resp BP Pulse Ox 98.6 F 79 19 116/79 93 11/02/21 06:24 11/02/21 06:24 11/02/21 06:24 11/02/21 06:24 11/02/21 06:24 General appearance: Present: mild distress, cachectic HEART Score - HEART Score Troponin: WBC 10.6 K/mm3 (4.5-11.0) 11/02/21 05:58 RBC 4.37 M/mm3 (3.65-5.03) 11/02/21 05:58 Hgb 13.1 gm/dl (11.8-15.2) 11/02/21 05:58 Hct 40.0 % (35.5-45.6) 11/02/21 05:58 MCV 92 fl (84-94) 11/02/21 05:58 MCH 30 pg (28-32) 11/02/21 05:58 MCHC 33 % (32-34) 11/02/21 05:58 RDW 14.2 % (13.2-15.2) 11/02/21 05:58 Plt Count 286 K/mm3 (140-440) 11/02/21 05:58 Rutherford % (Auto) Fruit Dryer 11/02/21 05:58 Add Manual Diff Complete 11/02/21 05:58 Total Counted 100 11/02/21 05:58 Seg Neutrophils % Fruit Dryer 11/02/21 05:58 Seg Neuts % (Manual) 88.0 % (40.0-70.0) H 11/02/21 05:58 Band Neutrophils % 2.0 % 11/02/21 05:58 Lymphocytes % (Manual) 2.0 % (13.4-35.0) L 11/02/21 05:58 Reactive Lymphs % (Man) 0 % 11/02/21 05:58 Monocytes % (Manual) 6.0 % (0.0-7.3) 11/02/21 05:58 Eosinophils % (Manual) 1.0 % (0.0-4.3) 11/02/21 05:58 Basophils % (Manual) 0 % (0.0-1.8) 11/02/21 05:58 Metamyelocytes % 1.0 % 11/02/21 05:58 Myelocytes % 0 % 11/02/21 05:58 Promyelocytes % 0 % 11/02/21 05:58 Blast Cells % 0 % 11/02/21 05:58 Nucleated RBC % Not Reportable 11/02/21 05:58 Seg Neutrophils # Man 9.3 K/mm3 (1.8-7.7) H 11/02/21 05:58 Band Neutrophils # 0.2 K/mm3 11/02/21 05:58 Lymphocytes # (Manual) 0.2 K/mm3 (1.2-5.4) L 11/02/21 05:58 Abs React Lymphs (Man) 0.0 K/mm3 11/02/21 05:58 Monocytes # (Manual) 0.6 K/mm3 (0.0-0.8) 11/02/21 05:58 Eosinophils # (Manual) 0.1 K/mm3 (0.0-0.4) 11/02/21 05:58 Basophils # (Manual) 0.0 K/mm3 (0.0-0.1) 11/02/21 05:58 Metamyelocytes # 0.1 K/mm3 11/02/21 05:58 Myelocytes # 0.0 K/mm3 11/02/21 05:58 Promyelocytes # 0.0 K/mm3 11/02/21 05:58 Blast Cells # 0.0 K/mm3 11/02/21 05:58 WBC Morphology Not Reportable 11/02/21 05:58 Hypersegmented Neuts Rare 11/02/21 05:58 Hyposegmented Neuts Not Reportable 11/02/21 05:58 Hypogranular Neuts Not Reportable 11/02/21 05:58 Smudge Cells Not Reportable 11/02/21 05:58 Toxic Granulation Not Reportable 11/02/21 05:58 Toxic Vacuolation Not Reportable 11/02/21 05:58 Dohle Bodies Not Reportable 11/02/21 05:58 Pelger-Huet Anomaly Not Reportable 11/02/21 05:58 Mu Rods Not Reportable 11/02/21 05:58 Platelet Estimate Consistent w auto 11/02/21 05:58 Clumped Platelets Not Reportable 11/02/21 05:58 Plt Clumps, EDTA Not Reportable 11/02/21 05:58 Large Platelets Not Reportable 11/02/21 05:58 Giant Platelets Not Reportable 11/02/21 05:58 Platelet Satelliting Not Reportable 11/02/21 05:58 Plt Morphology Comment Not Reportable 11/02/21 05:58 RBC Morphology Not Reportable 11/02/21 05:58 Dimorphic RBCs Not Reportable 11/02/21 05:58 Polychromasia Not Reportable 11/02/21 05:58 Hypochromasia Not Reportable 11/02/21 05:58 Poikilocytosis Not Reportable 11/02/21 05:58 Anisocytosis 1+ 11/02/21 05:58 Microcytosis Not Reportable 11/02/21 05:58 Macrocytosis Not Reportable 11/02/21 05:58 Spherocytes Not Reportable 11/02/21 05:58 Pappenheimer Bodies Not Reportable 11/02/21 05:58 Sickle Cells Not Reportable 11/02/21 05:58 Target Cells Not Reportable 11/02/21 05:58 Tear Drop Cells Not Reportable 11/02/21 05:58 Ovalocytes Not Reportable 11/02/21 05:58 Helmet Cells Not Reportable 11/02/21 05:58 Liu-Amalga Bodies Not Reportable 11/02/21 05:58 Brohard Rings Not Reportable 11/02/21 05:58 Jose Roberto Cells Not Reportable 11/02/21 05:58 Bite Cells Not Reportable 11/02/21 05:58 Crenated Cell Not Reportable 11/02/21 05:58 Elliptocytes Not Reportable 11/02/21 05:58 Acanthocytes (Spur) Not Reportable 11/02/21 05:58 Rouleaux Not Reportable 11/02/21 05:58 Hemoglobin C Crystals Not Reportable 11/02/21 05:58 Schistocytes Not Reportable 11/02/21 05:58 Malaria parasites Not Reportable 11/02/21 05:58 Salinas Bodies Not Reportable 11/02/21 05:58 Hem Pathologist Commnt No 11/02/21 05:58 Sodium 138 mmol/L (137-145) 11/02/21 05:58 Potassium 4.4 mmol/L (3.6-5.0) 11/02/21 05:58 Chloride 105.4 mmol/L (98-107) 11/02/21 05:58 Carbon Dioxide 21 mmol/L (22-30) L 11/02/21 05:58 Anion Gap 16 mmol/L 11/02/21 05:58 BUN 18 mg/dL (9-20) 11/02/21 05:58 Creatinine 0.8 mg/dL (0.8-1.3) 11/02/21 05:58 Estimated GFR > 60 ml/min 11/02/21 05:58 BUN/Creatinine Ratio 23 % 11/02/21 05:58 Glucose 66 mg/dL (75-100) L 11/02/21 05:58 Calcium 7.8 mg/dL (8.4-10.2) L 11/02/21 05:58 Results - Labs CBC & Chem 7: 11/02/21 05:58 11/02/21 20:23 Labs: Laboratory Last Values WBC 10.6 K/mm3 (4.5-11.0) 11/02/21 05:58 RBC 4.37 M/mm3 (3.65-5.03) 11/02/21 05:58 Hgb 13.1 gm/dl (11.8-15.2) 11/02/21 05:58 Hct 40.0 % (35.5-45.6) 11/02/21 05:58 MCV 92 fl (84-94) 11/02/21 05:58 MCH 30 pg (28-32) 11/02/21 05:58 MCHC 33 % (32-34) 11/02/21 05:58 RDW 14.2 % (13.2-15.2) 11/02/21 05:58 Plt Count 286 K/mm3 (140-440) 11/02/21 05:58 Rutherford % (Auto) Fruit Dryer 11/02/21 05:58 Add Manual Diff Complete 11/02/21 05:58 Total Counted 100 11/02/21 05:58 Seg Neutrophils % Fruit Dryer 11/02/21 05:58 Seg Neuts % (Manual) 88.0 % (40.0-70.0) H 11/02/21 05:58 Band Neutrophils % 2.0 % 11/02/21 05:58 Lymphocytes % (Manual) 2.0 % (13.4-35.0) L 11/02/21 05:58 Reactive Lymphs % (Man) 0 % 11/02/21 05:58 Monocytes % (Manual) 6.0 % (0.0-7.3) 11/02/21 05:58 Eosinophils % (Manual) 1.0 % (0.0-4.3) 11/02/21 05:58 Basophils % (Manual) 0 % (0.0-1.8) 11/02/21 05:58 Metamyelocytes % 1.0 % 11/02/21 05:58 Myelocytes % 0 % 11/02/21 05:58 Promyelocytes % 0 % 11/02/21 05:58 Blast Cells % 0 % 11/02/21 05:58 Nucleated RBC % Not Reportable 11/02/21 05:58 Seg Neutrophils # Man 9.3 K/mm3 (1.8-7.7) H 11/02/21 05:58 Band Neutrophils # 0.2 K/mm3 11/02/21 05:58 Lymphocytes # (Manual) 0.2 K/mm3 (1.2-5.4) L 11/02/21 05:58 Abs React Lymphs (Man) 0.0 K/mm3 11/02/21 05:58 Monocytes # (Manual) 0.6 K/mm3 (0.0-0.8) 11/02/21 05:58 Eosinophils # (Manual) 0.1 K/mm3 (0.0-0.4) 11/02/21 05:58 Basophils # (Manual) 0.0 K/mm3 (0.0-0.1) 11/02/21 05:58 Metamyelocytes # 0.1 K/mm3 11/02/21 05:58 Myelocytes # 0.0 K/mm3 11/02/21 05:58 Promyelocytes # 0.0 K/mm3 11/02/21 05:58 Blast Cells # 0.0 K/mm3 11/02/21 05:58 WBC Morphology Not Reportable 11/02/21 05:58 Hypersegmented Neuts Rare 11/02/21 05:58 Hyposegmented Neuts Not Reportable 11/02/21 05:58 Hypogranular Neuts Not Reportable 11/02/21 05:58 Smudge Cells Not Reportable 11/02/21 05:58 Toxic Granulation Not Reportable 11/02/21 05:58 Toxic Vacuolation Not Reportable 11/02/21 05:58 Dohle Bodies Not Reportable 11/02/21 05:58 Pelger-Huet Anomaly Not Reportable 11/02/21 05:58 Mu Rods Not Reportable 11/02/21 05:58 Platelet Estimate Consistent w auto 11/02/21 05:58 Clumped Platelets Not Reportable 11/02/21 05:58 Plt Clumps, EDTA Not Reportable 11/02/21 05:58 Large Platelets Not Reportable 11/02/21 05:58 Giant Platelets Not Reportable 11/02/21 05:58 Platelet Satelliting Not Reportable 11/02/21 05:58 Plt Morphology Comment Not Reportable 11/02/21 05:58 RBC Morphology Not Reportable 11/02/21 05:58 Dimorphic RBCs Not Reportable 11/02/21 05:58 Polychromasia Not Reportable 11/02/21 05:58 Hypochromasia Not Reportable 11/02/21 05:58 Poikilocytosis Not Reportable 11/02/21 05:58 Anisocytosis 1+ 11/02/21 05:58 Microcytosis Not Reportable 11/02/21 05:58 Macrocytosis Not Reportable 11/02/21 05:58 Spherocytes Not Reportable 11/02/21 05:58 Pappenheimer Bodies Not Reportable 11/02/21 05:58 Sickle Cells Not Reportable 11/02/21 05:58 Target Cells Not Reportable 11/02/21 05:58 Tear Drop Cells Not Reportable 11/02/21 05:58 Ovalocytes Not Reportable 11/02/21 05:58 Helmet Cells Not Reportable 11/02/21 05:58 Liu-Amalga Bodies Not Reportable 11/02/21 05:58 Brohard Rings Not Reportable 11/02/21 05:58 Jose Roberto Cells Not Reportable 11/02/21 05:58 Bite Cells Not Reportable 11/02/21 05:58 Crenated Cell Not Reportable 11/02/21 05:58 Elliptocytes Not Reportable 11/02/21 05:58 Acanthocytes (Spur) Not Reportable 11/02/21 05:58 Rouleaux Not Reportable 11/02/21 05:58 Hemoglobin C Crystals Not Reportable 11/02/21 05:58 Schistocytes Not Reportable 11/02/21 05:58 Malaria parasites Not Reportable 11/02/21 05:58 Salinas Bodies Not Reportable 11/02/21 05:58 Hem Pathologist Commnt No 11/02/21 05:58 Sodium 138 mmol/L (137-145) 11/02/21 05:58 Potassium 4.4 mmol/L (3.6-5.0) 11/02/21 05:58 Chloride 105.4 mmol/L (98-107) 11/02/21 05:58 Carbon Dioxide 21 mmol/L (22-30) L 11/02/21 05:58 Anion Gap 16 mmol/L 11/02/21 05:58 BUN 18 mg/dL (9-20) 11/02/21 05:58 Creatinine 0.8 mg/dL (0.8-1.3) 11/02/21 05:58 Estimated GFR > 60 ml/min 11/02/21 05:58 BUN/Creatinine Ratio 23 % 11/02/21 05:58 Glucose 66 mg/dL (75-100) L 11/02/21 05:58 Calcium 7.8 mg/dL (8.4-10.2) L 11/02/21 05:58 Clancy/IV: Voiding Method Condom Catheter Active Medications - Current Medications Current Medications: Generic Name Dose Route Start Last Admin Trade Name Freq PRN Reason Stop Dose Admin Acetaminophen 650 mg 11/01/21 12:23 Acetaminophen 325 Mg Tab PO Q4H PRN Pain MILD(1-3)/Fever >100.5/ROSARIO Acetaminophen 650 mg 11/01/21 18:18 Acetaminophen 650 Mg Rect Supp AL Q4H PRN Pain, Mild (1-3) Albuterol 2.5 mg 11/01/21 12:23 Albuterol 2.5 Mg/3 Ml Nebu IH Q4HRT PRN Shortness Of Breath Azithromycin 500 mg 11/01/21 15:00 11/01/21 16:12 Azithromycin 250 Mg Tab PO Not Given QDAY GABRIELLE Protocol Hydromorphone HCl 0.5 mg 11/01/21 12:23 Hydromorphone 0.5 Mg/0.5 Ml Inj IV Q13H PRN Pain , Severe (7-10) Sodium Chloride 1,000 mls @ 75 mls/hr 11/01/21 15:00 11/02/21 05:55 Nacl 0.9% 1000 Ml IV 75 mls/hr DIRECT GABRIELLE Administration Ceftriaxone Sodium 2 gm in 100 mls @ 200 mls/hr 11/01/21 15:00 11/01/21 16:13 Rocephin/Ns 2 Gm/100 Ml IV 200 mls/hr Q24H GABRIELLE Administration Protocol Ondansetron HCl 4 mg 11/01/21 12:23 Ondansetron 4 Mg/2 Ml Inj IV Q8H PRN Nausea And Vomiting Oxycodone/Acetaminophen 1 tab 11/01/21 12:23 Oxycodone /Acetaminophen 5-325mg Tab PO Q6H PRN Pain, Moderate (4-6) Sodium Chloride 10 ml 11/01/21 22:00 11/01/21 22:00 Sodium Chloride 0.9% 10 Ml Flush Syringe IV 10 ml BID GABRIELLE Administration Sodium Chloride 10 ml 11/01/21 12:23 Sodium Chloride 0.9% 10 Ml Flush Syringe IV PRN PRN LINE FLUSH
[2021-11-02] MEDS ORDERED: chlordiazePOXIDE 25 MG CAP PO PRN (08:26)
[2021-11-02] MEDS ORDERED: ACETAMINOPHEN 325 MG TAB PO PRN (08:39)
--- NOTE | 2021-11-02 12:59 | Progress Note ---
Subjective - Reason for Consult Consult date: 11/02/21 Reason for consult: depression - Chief Complaint Chief complaint: The patient was seen today. He is drowsy. He arouses easy but unable to engage in the interview. The patient is confused and mumbles at times. REVIEW OF SYSTEMS Coughing MENTAL STATUS EXAMINATION Unable to assess Diagnoses: Major Depressive Disorder Treatment Plan Appreciate restarting home meds Medical: Per primary Sitter: Defer to primary Disposition: Do not recommend acute psychiatric inpatient treatment Will follow for med management. Thanks Case staffed with Dr. Segovia Mental Status Exam - Vital signs Last Vital Signs Temp 98.8 F 11/02/21 11:56 Pulse 76 11/02/21 11:56 Resp 18 11/02/21 11:56 BP 126/83 11/02/21 11:56 Pulse Ox 91 11/02/21 11:56
[2021-11-02] MEDS ORDERED: dexAMETHasone 4 MG/ML VIAL IV SCH (16:00)
[2021-11-02] MEDS: ESCITALOPRAM 10 MG TAB PO SCH (16:15)
[2021-11-02] MEDS: DIVALPROEX DR 125 MG TAB PO SCH ×2 (16:15→22:20)
[2021-11-02] MEDS: cefTRIAXone/NS 2 GM/100 ML 2 GM/100 ML BAG IV SCH (16:15)
[2021-11-02] MEDS: NYSTATIN 500,000 UNIT/5 ML ORAL LIQD PO SCH ×3 (16:16→22:36)
[2021-11-02] MEDS: PANTOPRAZOLE 40 MG TAB PO SCH ×2 (16:17→16:30)
[2021-11-02] MEDS: ARIPiprazole 5 MG TAB PO SCH (16:17)
[2021-11-02] MEDS: AZITHROMYCIN 250 MG TAB PO SCH (16:17)
[2021-11-02] MEDS: FOLIC ACID 1 MG TAB PO SCH (16:17)
[2021-11-02] MEDS ORDERED: REMDESIVIR 200 MG in SODIUM CHLORIDE 0.9% 250ML 250 ML IV ONE (18:00)
[2021-11-02] MEDS ORDERED: MELATONIN 5 MG TAB PO PRN (21:00)
[2021-11-02 21:03] LABS: Alanine Aminotransferase 38 units/L (7-56); Albumin 2.4 g/dL (3.9-5); BUN/Creatinine Ratio 20; Blood Urea Nitrogen 16 mg/dL (9-20); Calcium 8.1 mg/dL (8.4-10.2); Hemolysis Index 0
[2021-11-02] MEDS: MIRTAZAPINE 15 MG TAB PO SCH (22:20)
[2021-11-02] MEDS: traZODone 50 MG TAB PO SCH (22:21)
--- NOTE | 2021-11-03 08:31 | Consultation ---
History of Present Illness - Reason for Consult Consult date: 11/03/21 COVID-19 Requesting physician: DEWEY BOONE - History of Present Illness The patient is a 61-year-old male with dementia, prior CVA, alcohol dependence, HIV, noncompliant with antiretroviral therapy was initially admitted to the psychiatric unit for stabilization was noted to have decreased responsiveness during his hospitalization, underwent a chest x-ray and was found to have a pneumonia. Also tested positive for COVID-19, hence he was transferred to the medical unit. ID was consulted for additional evaluation. No fever. Currently on room air. Labs revealed normal WBC of 10.6, hemoglobin 13.1, platelets 286, creatinine 0.8, AST 55. COVID-19 PCR positive. Chest x-ray shows mild interstitial diffuse prominence, no dense consolidation. Review of Systems: General: no fevers,chills or rigors. Feels weak overall HEENT: no new visual disturbance Respiratory: No cough, sputum, hemoptysis or shortness of breath Cardiovascular: No chest pain, syncope Gastrointestinal: No nausea, vomiting or diarrhea Genitourinary: No dysuria or hematuria Musculoskeletal: No new or worsening neck pain or back pain Neurologic: No headaches, seizures Hematologic: No easy bruising or bleeding Endocrine: No night sweats or acute weight loss Skin: negative for rash, jaundice Psychiatric: No suicidal or homicidal ideation Past History Past Medical History: COPD, hepatitis, HIV/AIDS, hypertension Past Surgical History: Other (Finger surgery) Social history: single. denies: smoking, alcohol abuse, prescription drug abuse Family history: diabetes, hypertension Medications and Allergies Allergies Allergy/AdvReac Type Severity Reaction Status Date / Time No Known Drug Allergies Allergy Unknown Verified 10/27/21 20:44 Home Medications Medication Instructions Recorded Confirmed Last Taken Type No Known Home Medications [No 11/01/21 11/01/21 Unknown History Reported Home Medications] Active Meds: Active Medications Acetaminophen (Acetaminophen 325 Mg Tab) 650 mg PO Q4H PRN PRN Reason: Pain MILD(1-3)/Fever >100.5/ROSARIO Albuterol (Albuterol 2.5 Mg/3 Ml Nebu) 2.5 mg IH Q4HRT PRN PRN Reason: Shortness Of Breath Aripiprazole (Aripiprazole 5 Mg Tab) 5 mg PO QDAY [facility] Last Admin: 11/02/21 16:17 Dose: 5 mg Azithromycin (Azithromycin 250 Mg Tab) 500 mg PO QDAY [facility]; Protocol Last Admin: 11/02/21 16:17 Dose: 500 mg Chlordiazepoxide HCl (Chlordiazepoxide 25 Mg Cap) 25 mg PO BID PRN PRN Reason: Anxiety Divalproex Sodium (Divalproex Dr 125 Mg Tab) 125 mg PO TID [facility] Last Admin: 11/02/21 22:20 Dose: 125 mg Escitalopram Oxalate (Escitalopram 10 Mg Tab) 20 mg PO QDAY [facility] Last Admin: 11/02/21 16:15 Dose: 20 mg Fluconazole (Fluconazole 200 Mg Tab) 200 mg PO QDAY [facility]; Protocol Folic Acid (Folic Acid 1 Mg Tab) 1 mg PO QDAY [facility] Last Admin: 11/02/21 16:17 Dose: 1 mg Hydromorphone HCl (Hydromorphone 0.5 Mg/0.5 Ml Inj) 0.5 mg IV Q13H PRN PRN Reason: Pain , Severe (7-10) Sodium Chloride (Nacl 0.9% 1000 Ml) 1,000 mls @ 75 mls/hr IV DIRECT [facility] Last Admin: 11/02/21 22:29 Dose: 75 mls/hr Ceftriaxone Sodium (Rocephin/Ns 2 Gm/100 Ml) 2 gm in 100 mls @ 200 mls/hr IV Q24H [facility]; Protocol Last Admin: 11/02/21 16:15 Dose: 200 mls/hr Remdesivir 100 mg/ Sodium (Chloride) 250 mls @ 500 mls/hr IV Q24HR@1400 [facility] Stop: 11/06/21 14:29 Melatonin (Melatonin 5 Mg Tab) 5 mg PO QHS PRN PRN Reason: Sleep Mirtazapine (Mirtazapine 15 Mg Tab) 7.5 mg PO QHS [facility] Last Admin: 11/02/21 22:20 Dose: 7.5 mg Nystatin (Nystatin 500,000 Unit/5 Ml Oral Liqd) 500,000 unit PO QID [facility] Last Admin: 11/02/21 22:36 Dose: 500,000 unit Ondansetron HCl (Ondansetron 4 Mg/2 Ml Inj) 4 mg IV Q8H PRN PRN Reason: Nausea And Vomiting Oxycodone/Acetaminophen (Oxycodone /Acetaminophen 5-325mg Tab) 1 tab PO Q6H PRN PRN Reason: Pain, Moderate (4-6) Pantoprazole Sodium (Pantoprazole 40 Mg Tab) 40 mg PO BIDAC [facility] Last Admin: 11/02/21 16:30 Dose: Not Given Sodium Chloride (Sodium Chloride 0.9% 10 Ml Flush Syringe) 10 ml IV BID GABRIELLE Last Admin: 11/02/21 22:21 Dose: 10 ml Sodium Chloride (Sodium Chloride 0.9% 10 Ml Flush Syringe) 10 ml IV PRN PRN PRN Reason: LINE FLUSH Sodium Chloride (Sodium Chloride 0.9% 50 Ml Ivpb) 50 ml IV Q24HR@1400 [facility] Stop: 11/07/21 14:01 Trazodone HCl (Trazodone 50 Mg Tab) 50 mg PO QHS [facility] Last Admin: 11/02/21 22:21 Dose: 50 mg Trimethoprim/Sulfamethoxazole (Sulfamethoxazole/Trimethoprim 800/160mg Ds Tab) 1 each PO DAILY [facility]; Protocol Physical Examination - Physical Exam Narrative exam: Physical Exam: Constitutional: Alert, cooperative. No acute distress. Cachexia Head, Ears, Nose: Normocephalic, atraumatic. External ears, nose normal Eyes: Conjunctivae/corneas clear. No icterus. No ptosis. Neck: Supple, no meningeal signs Oral: Poor dentition, oral thrush + Cardiovascular: S1, S2 + Respiratory: Good air entry, clear to auscultation bilaterally GI: Soft, non-tender; bowel sounds normal. No peritoneal signs Musculoskeletal: No pedal edema, no cyanosis. Cachexia Skin: No rash or abscess Hem/Lymphatic: No palpable cervical or supraclavicular nodes. No lymphangitis Psych: Calm Neurological: Awake, alert, oriented. - Constitutional Vitals: Vital Signs Temp Pulse Resp BP Pulse Ox 98.9 F 65 16 135/88 96 11/03/21 04:39 11/03/21 04:39 11/03/21 07:59 11/03/21 04:39 11/03/21 07:59 Temperature -Last 24 Hours Temperature 98.9 F Temperature 98.0 F Temperature 99.0 F Temperature 98.8 F Results - Labs CBC & Chem 7: 11/02/21 05:58 11/02/21 20:23 Labs: Abnormal lab results 11/02/21 11/02/21 Range/Units 09:50 20:23 Sodium 135 L (137-145) mmol/L Glucose 71 L (75-100) mg/dL Calcium 8.1 L (8.4-10.2) mg/dL AST 55 H (5-40) units/L Albumin 2.4 L (3.9-5) g/dL Coronavirus (PCR) Positive A (Negative) - Imaging and Cardiology Chest x-ray: report reviewed, image reviewed (mild interstitial prominence) Assessment and Plan Cultures: SARS CoV2 PCR: Positive A/P: 61-year-old male with dementia, prior CVA, alcohol dependence, HIV, noncompliant with antiretroviral therapy was initially admitted to the psychiatric unit for stabilization was noted to have decreased responsiveness during his hospitalization, underwent a chest x-ray and was found to have a pneumonia: #Bilateral pneumonia: Secondary to COVID-19. Also given noncompliant HIV, possibility of PJP also exists. Patient states he received 2 doses of the Pfizer vaccine, did not receive the booster. #HIV disease: Used to follow-up at [facility], says his last visit was about 6 months ago and he used to be on Biktarvy. Interested in restarting Biktarvy. #Oral thrush: On nystatin. Fluconazole added #Schizophrenia, mood disorder, anxiety #Alcohol abuse #Protein calorie malnutrition Recs: -No steroids for now since he is on room air -continue IV remdesivir x 3-5 days to prevent disease progression given his comorbidities and HIV status -Continue ceftriaxone, azithromycin for now, if procalcitonin is low, can stop -monitor ferritin, d-dimer, CRP every 2-3 days -f/u LDH, CD4 count -Fungitell ordered -HIV RNA PCR ordered -Fluconazole 200 mg daily x 14 days -PO Bactrim DS 1 tab daily for prophylaxis till CD4 count is back -Resume follow up with [facility] upon discharge to restart ART Rosalie Knight MD, FACP, [facility] O: [phone] F: [phone] C: [phone]
[2021-11-03] MEDS: ESCITALOPRAM 10 MG TAB PO SCH (09:14)
[2021-11-03] MEDS: SULFAMETHOXAZOLE/TRIMETHOPRIM 800/160MG DS TAB PO SCH (09:15)
[2021-11-03] MEDS: NYSTATIN 500,000 UNIT/5 ML ORAL LIQD PO SCH ×4 (09:15→21:35)
[2021-11-03] MEDS: ARIPiprazole 5 MG TAB PO SCH (09:15)
[2021-11-03] MEDS: AZITHROMYCIN 250 MG TAB PO SCH (09:15)
[2021-11-03] MEDS: FOLIC ACID 1 MG TAB PO SCH (09:15)
[2021-11-03] MEDS: PANTOPRAZOLE 40 MG TAB PO SCH ×2 (09:15→15:32)
[2021-11-03] MEDS: DIVALPROEX DR 125 MG TAB PO SCH ×3 (10:04→21:35)
[2021-11-03] MEDS: FLUCONAZOLE 200 MG TAB PO SCH (10:05)
--- NOTE | 2021-11-03 13:46 | Progress Note ---
Assessment and Plan Assessment and plan: #Pneumonia-viral versus bacterial cause #COVID-19 infection -CXR reviewed -COVID PCR positive -Patient noted to have oxygen saturation as low as 90% continue remdesivir -Continue Rocephin and azithromycin for now -D-dimer, LDH and ferritin, procalcitonin ordered -Infectious disease consulted, assistance appreciated #Acute metabolic encephalopathy-resolved -CT head negative -likely due to illness #HIV disease -Not currently taking antiretroviral drugs -CD4 count, PCR ordered -continue bactrim ppx -Follow-up with ID outpatient #Oral candidiasis -Nystatin swish and swallow 4 times daily + fluconazole #Schizophrenia #Unspecified mood disorder #Anxiety depression -continue lexapro and depakote -Psychiatry following, assistance appreciated #Alcohol abuse #Alcoholic withdrawals - continue librium taper - behavioral health counseling administered which included education on benefits of alcohol cessation as well as options for quitting. +15 min #moderate protein calorie malnutrition -albumin 2.6 -likely secondary to ETOH abuse #Fall -Patient reports fall last night while ambulating to the bathroom and hit the back of his neck -X-ray of C-spine ordered -PT evaluation ordered #Advance care planning -Disease education conducted, care plan discussed, diagnoses discussed, prognosis discussed, patient is full code, patient acknowledges understanding and agree with care plan, +30 minutes. #Discharge planning -Patient from [facility] and apparently got here on his own recognizance -retail assistant manager/secondary social studies teacher following for safe discharge History Interval history: Patient reports fall in bathroom last night where he hit his neck. He also reports that he had some bleeding from his nose and mouth afterwards. He denies lightheadedness or dizziness prior to fall. He also denies shortness of breath and has had minimal productive cough. We will continue with current care plan. Hospitalist Physical - Physical exam Narrative exam: GENERAL: Cachectic male. In no acute distress. HEENT: Oral thrush. NECK: Supple. CHEST/LUNGS: CTAB on room air HEART/CARDIOVASCULAR: RRR. No murmur, rubs or gallops appreciated. ABDOMEN: +BS. NT/ND. NEURO: No focal motor deficit. Follows all commands. MUSCULOSKELETAL: No joint effusion EXTREMITIES: No cyanosis, clubbing or edema. PSYCH: Cooperative. - Constitutional Vitals: Temp Pulse Resp BP Pulse Ox 98.9 F 65 16 135/88 94 11/03/21 04:39 11/03/21 04:39 11/03/21 07:59 11/03/21 04:39 11/03/21 10:00 General appearance: Present: mild distress, cachectic Results - Labs CBC & Chem 7: 11/02/21 05:58 11/02/21 20:23 Labs: Laboratory Last Values WBC 10.6 K/mm3 (4.5-11.0) 11/02/21 05:58 RBC 4.37 M/mm3 (3.65-5.03) 11/02/21 05:58 Hgb 13.1 gm/dl (11.8-15.2) 11/02/21 05:58 Hct 40.0 % (35.5-45.6) 11/02/21 05:58 MCV 92 fl (84-94) 11/02/21 05:58 MCH 30 pg (28-32) 11/02/21 05:58 MCHC 33 % (32-34) 11/02/21 05:58 RDW 14.2 % (13.2-15.2) 11/02/21 05:58 Plt Count 286 K/mm3 (140-440) 11/02/21 05:58 [place] % (Auto) Pest Control Technician 11/02/21 05:58 Add Manual Diff Complete 11/02/21 05:58 Total Counted 100 11/02/21 05:58 Seg Neutrophils % Pest Control Technician 11/02/21 05:58 Seg Neuts % (Manual) 88.0 % (40.0-70.0) H 11/02/21 05:58 Band Neutrophils % 2.0 % 11/02/21 05:58 Lymphocytes % (Manual) 2.0 % (13.4-35.0) L 11/02/21 05:58 Reactive Lymphs % (Man) 0 % 11/02/21 05:58 Monocytes % (Manual) 6.0 % (0.0-7.3) 11/02/21 05:58 Eosinophils % (Manual) 1.0 % (0.0-4.3) 11/02/21 05:58 Basophils % (Manual) 0 % (0.0-1.8) 11/02/21 05:58 Metamyelocytes % 1.0 % 11/02/21 05:58 Myelocytes % 0 % 11/02/21 05:58 Promyelocytes % 0 % 11/02/21 05:58 Blast Cells % 0 % 11/02/21 05:58 Nucleated RBC % Not Reportable 11/02/21 05:58 Seg Neutrophils # Man 9.3 K/mm3 (1.8-7.7) H 11/02/21 05:58 Band Neutrophils # 0.2 K/mm3 11/02/21 05:58 Lymphocytes # (Manual) 0.2 K/mm3 (1.2-5.4) L 11/02/21 05:58 Abs React Lymphs (Man) 0.0 K/mm3 11/02/21 05:58 Monocytes # (Manual) 0.6 K/mm3 (0.0-0.8) 11/02/21 05:58 Eosinophils # (Manual) 0.1 K/mm3 (0.0-0.4) 11/02/21 05:58 Basophils # (Manual) 0.0 K/mm3 (0.0-0.1) 11/02/21 05:58 Metamyelocytes # 0.1 K/mm3 11/02/21 05:58 Myelocytes # 0.0 K/mm3 11/02/21 05:58 Promyelocytes # 0.0 K/mm3 11/02/21 05:58 Blast Cells # 0.0 K/mm3 11/02/21 05:58 WBC Morphology Not Reportable 11/02/21 05:58 Hypersegmented Neuts Rare 11/02/21 05:58 Hyposegmented Neuts Not Reportable 11/02/21 05:58 Hypogranular Neuts Not Reportable 11/02/21 05:58 Smudge Cells Not Reportable 11/02/21 05:58 Toxic Granulation Not Reportable 11/02/21 05:58 Toxic Vacuolation Not Reportable 11/02/21 05:58 Dohle Bodies Not Reportable 11/02/21 05:58 Pelger-Huet Anomaly Not Reportable 11/02/21 05:58 Mu Rods Not Reportable 11/02/21 05:58 Platelet Estimate Consistent w auto 11/02/21 05:58 Clumped Platelets Not Reportable 11/02/21 05:58 Plt Clumps, EDTA Not Reportable 11/02/21 05:58 Large Platelets Not Reportable 11/02/21 05:58 Giant Platelets Not Reportable 11/02/21 05:58 Platelet Satelliting Not Reportable 11/02/21 05:58 Plt Morphology Comment Not Reportable 11/02/21 05:58 RBC Morphology Not Reportable 11/02/21 05:58 Dimorphic RBCs Not Reportable 11/02/21 05:58 Polychromasia Not Reportable 11/02/21 05:58 Hypochromasia Not Reportable 11/02/21 05:58 Poikilocytosis Not Reportable 11/02/21 05:58 Anisocytosis 1+ 11/02/21 05:58 Microcytosis Not Reportable 11/02/21 05:58 Macrocytosis Not Reportable 11/02/21 05:58 Spherocytes Not Reportable 11/02/21 05:58 Pappenheimer Bodies Not Reportable 11/02/21 05:58 Sickle Cells Not Reportable 11/02/21 05:58 Target Cells Not Reportable 11/02/21 05:58 Tear Drop Cells Not Reportable 11/02/21 05:58 Ovalocytes Not Reportable 11/02/21 05:58 Helmet Cells Not Reportable 11/02/21 05:58 [place] Bodies Not Reportable 11/02/21 05:58 Reading Rings Not Reportable 11/02/21 05:58 [place] Cells Not Reportable 11/02/21 05:58 Bite Cells Not Reportable 11/02/21 05:58 Crenated Cell Not Reportable 11/02/21 05:58 Elliptocytes Not Reportable 11/02/21 05:58 Acanthocytes (Spur) Not Reportable 11/02/21 05:58 Rouleaux Not Reportable 11/02/21 05:58 Hemoglobin C Crystals Not Reportable 11/02/21 05:58 Schistocytes Not Reportable 11/02/21 05:58 Malaria parasites Not Reportable 11/02/21 05:58 [place] Bodies Not Reportable 11/02/21 05:58 Hem Pathologist Commnt No 11/02/21 05:58 Sodium 135 mmol/L (137-145) L 11/02/21 20:23 Potassium 4.0 mmol/L (3.6-5.0) 11/02/21 20:23 Chloride 104.1 mmol/L (98-107) 11/02/21 20:23 Carbon Dioxide 23 mmol/L (22-30) 11/02/21 20:23 Anion Gap 12 mmol/L 11/02/21 20:23 BUN 16 mg/dL (9-20) 11/02/21 20:23 Creatinine 0.8 mg/dL (0.8-1.3) 11/02/21 20:23 Estimated GFR > 60 ml/min 11/02/21 20:23 BUN/Creatinine Ratio 20 % 11/02/21 20:23 Glucose 71 mg/dL (75-100) L 11/02/21 20:23 Calcium 8.1 mg/dL (8.4-10.2) L 11/02/21 20:23 Total Bilirubin 0.30 mg/dL (0.1-1.2) 11/02/21 20: AST 55 units/L (5-40) H 11/02/21 20: ALT 38 units/L (7-56) 11/02/21 20:23 Alkaline Phosphatase 85 units/L (35-129) 11/02/21 20: Total Protein 7.5 g/dL (6.3-8.2) 11/02/21 20: Albumin 2.4 g/dL (3.9-5) L 11/02/21 20: Albumin/Globulin Ratio 0.5 % 11/02/21 20:23 Coronavirus (PCR) Positive (Negative) A 11/02/21 09:50 [place]/IV: Voiding Method Condom Catheter Active Medications - Current Medications Current Medications: Generic Name Dose Route Start Last Admin Trade Name Freq PRN Reason Stop Dose Admin Acetaminophen 650 mg 11/02/21 08:39 Acetaminophen 325 Mg Tab PO Q4H PRN Pain MILD(1-3)/Fever >100.5/ROSARIO Albuterol 2.5 mg 11/01/21 12:23 Albuterol 2.5 Mg/3 Ml Nebu IH Q4HRT PRN Shortness Of Breath Aripiprazole 5 mg 11/02/21 10:00 11/03/21 09:15 Aripiprazole 5 Mg Tab PO 5 mg QDAY GABRIELLE Administration Azithromycin 500 mg 11/01/21 15:00 11/03/21 09:15 Azithromycin 250 Mg Tab PO 500 mg QDAY GABRIELLE Administration Protocol Chlordiazepoxide HCl 25 mg 11/02/21 08:26 Chlordiazepoxide 25 Mg Cap PO BID PRN Anxiety Divalproex Sodium 125 mg 11/02/21 14:00 11/03/21 10:[address] 125 Mg Tab PO 125 mg TID GABRIELLE Administration Escitalopram Oxalate 20 mg 11/02/21 10:00 11/03/21 09:14 Escitalopram 10 Mg Tab PO 20 mg QDAY GABRIELLE Administration Fluconazole 200 mg 11/03/21 10:00 11/03/21 10:05 Fluconazole 200 Mg Tab PO 11/16/21 10:01 200 mg QDAY GABRIELLE Administration Protocol Folic Acid 1 mg 11/02/21 10:00 11/03/21 09:15 Folic Acid 1 Mg Tab PO 1 mg QDAY GABRIELLE Administration Hydromorphone HCl 0.5 mg 11/01/21 12:23 Hydromorphone 0.5 Mg/0.5 Ml Inj IV Q13H PRN Pain , Severe (7-10) Sodium Chloride 1,000 mls @ 75 mls/hr 11/01/21 15:00 11/02/21 22:29 Nacl 0.9% 1000 Ml IV 75 mls/hr DIRECT GABRIELLE Administration Ceftriaxone Sodium 2 gm in 100 mls @ 200 mls/hr 11/01/21 15:00 11/02/21 16:15 Rocephin/Ns 2 Gm/100 Ml IV 200 mls/hr Q24H GABRIELLE Administration Protocol Remdesivir 100 mg/ Sodium 250 mls @ 500 mls/hr 11/03/21 14:00 Chloride IV 11/06/21 14:29 Q24HR@1400 GABRIELLE Melatonin 5 mg 11/02/21 21:00 Melatonin 5 Mg Tab PO QHS PRN Sleep Mirtazapine 7.5 mg 11/02/21 22:00 11/02/21 22:20 Mirtazapine 15 Mg Tab PO 7.5 mg QHS GABRIELLE Administration Nystatin 500,000 unit 11/02/21 14:00 11/03/21 09:15 Nystatin 500,000 Unit/5 Ml Oral Liqd PO 500,000 unit QID GABRIELLE Administration Ondansetron HCl 4 mg 11/01/21 12:23 Ondansetron 4 Mg/2 Ml Inj IV Q8H PRN Nausea And Vomiting Oxycodone/Acetaminophen 1 tab 11/01/21 12:23 Oxycodone /Acetaminophen 5-325mg Tab PO Q6H PRN Pain, Moderate (4-6) Pantoprazole Sodium 40 mg 11/02/21 09:00 11/03/21 09:15 Pantoprazole 40 Mg Tab PO 40 mg BIDAC GABRIELLE Administration Sodium Chloride 10 ml 11/01/21 22:00 11/03/21 09:15 Sodium Chloride 0.9% 10 Ml Flush Syringe IV 10 ml BID GABRIELLE Administration Sodium Chloride 10 ml 11/01/21 12:23 Sodium Chloride 0.9% 10 Ml Flush Syringe IV PRN PRN LINE FLUSH Sodium Chloride 50 ml 11/03/21 18:00 Sodium Chloride 0.9% 50 Ml Ivpb IV 11/07/21 14:01 Q24HR@1400 GABRIELLE Sodium Chloride 50 ml 11/03/21 14:30 Sodium Chloride 0.9% 50 Ml Ivpb IV 11/03/21 14:31 Q24HR@1400 GABRIELLE Trazodone HCl 50 mg 11/02/21 22:00 11/02/21 22:21 Trazodone 50 Mg Tab PO 50 mg QHS GABRIELLE Administration Trimethoprim/Sulfamethoxazole 1 each 11/03/21 10:00 11/03/21 09:15 Sulfamethoxazole/Trimethoprim 800/160mg Ds Tab PO 1 each DAILY GABRIELLE Administration Protocol Nutrition/Malnutrition Assess - Dietary Evaluation Nutrition/Malnutrition Findings: Nutrition Notes Start: 11/02/21 14:18 Freq: Status: Active Protocol: Document 11/03/21 13:33 CM (Rec: 11/03/21 13:40 CM [id number]) Co-Sign 11/03/21 13:33 WW Nutrition Notes Initial or Follow up Brief Note Current Diagnosis COPD Other Pertinent Diagnosis Vascular dementia, cerebral atherosclerosis, ETOH dependence, HIV, Hep Current Diet Full Liquid Diet Labs/Tests 11/03: Na 135 Glu 71 Pertinent Medications 11/03: Folic Acid Height 5 ft 9 in Weight 48.5 kg Jenkins Body Weight (kg) 72.72 BMI 15.7 Weight Status Underweight Subjective/Other Information RD follow-up per protocol. Pt advanced to full liquid diet per MD. D[employer]SE VAT WORKER consult 11/01 - still pending. No diet % recorded per ADL notes. No GI symptoms reported per physical assessment. Percent of energy/protein needs met: Full Liquid Diet provides 1155kcal / 37g PRO q day. 68% Kcal / 64% AA before the addition of nutrition supplements. #1 Nutrition Diagnosis Malnutrition Diagnosis Progress(for reassessment Continues documentation) Is patient on ventilator? No Is Patient Ambulatory and/or Out of Bed No REE-([place]-St. Jeor-confined to bed) 1541.724 Kcal/Kg value to use for calculation 35 Approximate Energy Requirements Using 1698 kcal/Kg Calculation Used for Recommendations Kcal/kg Additional Notes 1.2-2.0g/kg ABW; 58-97g PRO q day Fluid Needs: 1mL/kcal Nutrition Intervention Change Diet Order: Pt to advance to regular diet with texture modifications per D[employer] HOUSE [employer] WORKER. Add Supplement/Snack (indicate name/kcal Ensure Enlive (Variety) TID /protein ) Provides kCal: 1,050 Provides Protein (gm) 60 Goal #1 Pt to consume >75% of estimated energy/protein needs through current diet order and nutrition supplements. Goal #2 Pt to maintain current wt status. Follow-Up By: 11/08/21 Additional Comments Monitor diet texture modification, wt status, %PO intake, and GI symptoms.
[2021-11-03] MEDS ORDERED: SODIUM CHLORIDE 0.9% 50 ML IVPB IV SCH (14:30)
--- NOTE | 2021-11-03 14:32 | XRay Report ---
XR spine cervical 2-3V INDICATION / CLINICAL INFORMATION: reported fall. COMPARISON: None available. FINDINGS: BONES/JOINT(S): No acute fracture or subluxation. Mild degenerative disc disease at C5-6 and C6-7. No focal bone erosions or focal osteopenia to suggest inflammatory arthropathy. SOFT TISSUES: No significant abnormality. ADDITIONAL FINDINGS: None. Signer Name: Juan Yao MD Signed: 11/03/2021 2:28 PM Workstation Name: [employer]
[2021-11-03] MEDS: REMDESIVIR 100 MG in SODIUM CHLORIDE 0.9% 250ML 250 ML IV SCH (15:07)
[2021-11-03] MEDS ORDERED: guaiFENesin 200 MG TAB PO PRN (15:50)
[2021-11-03 17:03] LABS: Alanine Aminotransferase 38 units/L (7-56); Albumin 2.4 g/dL (3.9-5); Blood Urea Nitrogen 16 mg/dL (9-20); Calcium 8.4 mg/dL (8.4-10.2); Hemolysis Index 0
[2021-11-03 17:04] LABS: BUN/Creatinine Ratio 23
[2021-11-03] MEDS: cefTRIAXone/NS 2 GM/100 ML 2 GM/100 ML BAG IV SCH (17:56)
[2021-11-03] MEDS: SODIUM CHLORIDE 0.9% 50 ML IVPB IV SCH (19:12)
[2021-11-03] MEDS: MIRTAZAPINE 15 MG TAB PO SCH (21:35)
[2021-11-03] MEDS: traZODone 50 MG TAB PO SCH (21:36)
--- NOTE | 2021-11-04 08:57 | Progress Note ---
Assessment and Plan Assessment and plan: #Acute hypoxic respiratory failure #Pneumonia-viral versus bacterial cause #COVID-19 infection -CXR reviewed -COVID PCR positive -Patient noted to have oxygen saturation as low as 90% continue remdesivir -Continue Rocephin and azithromycin for now -D-dimer, LDH and ferritin elevated procalcitonin ordered -dexamethasone started, continuous pulse oximetry and CTA of chest ordered to rule out PE -Infectious disease consulted, assistance appreciated #Acute metabolic encephalopathy-resolved -CT head negative -likely due to illness #HIV disease -Not currently taking antiretroviral drugs -CD4 count, PCR ordered -continue bactrim ppx -Follow-up with ID outpatient #Oral candidiasis-improving -Nystatin swish and swallow 4 times daily + fluconazole #Schizophrenia #Unspecified mood disorder #Anxiety depression -continue lexapro and depakote -Psychiatry following, assistance appreciated #Alcohol abuse #Alcoholic withdrawals - continue librium taper - behavioral health counseling administered which included education on benefits of alcohol cessation as well as options for quitting. +15 min #moderate protein calorie malnutrition -albumin 2.6 -likely secondary to ETOH abuse #Fall -Patient reports fall last night while ambulating to the bathroom and hit the back of his neck -X-ray of C-spine ordered -PT evaluation ordered #Advance care planning -Disease education conducted, care plan discussed, diagnoses discussed, prognosis discussed, patient is full code, patient acknowledges understanding and agree with care plan, +30 minutes. #Discharge planning -Patient from [facility] and checked himself into the hospital for Psychiatric care -manager market research/manager social services following for safe discharge History Interval history: Patient seen at bedside. He denies any symptoms or discomfort at this time. He was updated about current care plan and is agreeable. Hospitalist Physical - Physical exam Narrative exam: GENERAL: Cachectic male. In no acute distress. HEENT: Oral thrush. NECK: Supple. CHEST/LUNGS: CTAB on room air HEART/CARDIOVASCULAR: RRR. No murmur, rubs or gallops appreciated. ABDOMEN: +BS. NT/ND. NEURO: No focal motor deficit. Follows all commands. MUSCULOSKELETAL: No joint effusion EXTREMITIES: No cyanosis, clubbing or edema. PSYCH: Cooperative. - Constitutional Vitals: Temp Pulse Resp BP Pulse Ox 98.9 F 56 L 18 136/79 79 L 11/04/21 05:05 11/04/21 05:05 11/04/21 05:05 11/04/21 05:05 11/04/21 05:05 General appearance: Present: mild distress, cachectic Results - Labs CBC & Chem 7: 11/02/21 05:58 11/03/21 16:14 Labs: Laboratory Last Values WBC 10.6 K/mm3 (4.5-11.0) 11/02/21 05:58 RBC 4.37 M/mm3 (3.65-5.03) 11/02/21 05:58 Hgb 13.1 gm/dl (11.8-15.2) 11/02/21 05:58 Hct 40.0 % (35.5-45.6) 11/02/21 05:58 MCV 92 fl (84-94) 11/02/21 05:58 MCH 30 pg (28-32) 11/02/21 05:58 MCHC 33 % (32-34) 11/02/21 05:58 RDW 14.2 % (13.2-15.2) 11/02/21 05:58 Plt Count 286 K/mm3 (140-440) 11/02/21 05:58 Jones % (Auto) Auto Body Repairer 11/02/21 05:58 Add Manual Diff Complete 11/02/21 05:58 Total Counted 100 11/02/21 05:58 Seg Neutrophils % Auto Body Repairer 11/02/21 05:58 Seg Neuts % (Manual) 88.0 % (40.0-70.0) H 11/02/21 05:58 Band Neutrophils % 2.0 % 11/02/21 05:58 Lymphocytes % (Manual) 2.0 % (13.4-35.0) L 11/02/21 05:58 Reactive Lymphs % (Man) 0 % 11/02/21 05:58 Monocytes % (Manual) 6.0 % (0.0-7.3) 11/02/21 05:58 Eosinophils % (Manual) 1.0 % (0.0-4.3) 11/02/21 05:58 Basophils % (Manual) 0 % (0.0-1.8) 11/02/21 05:58 Metamyelocytes % 1.0 % 11/02/21 05:58 Myelocytes % 0 % 11/02/21 05:58 Promyelocytes % 0 % 11/02/21 05:58 Blast Cells % 0 % 11/02/21 05:58 Nucleated RBC % Not Reportable 11/02/21 05:58 Seg Neutrophils # Man 9.3 K/mm3 (1.8-7.7) H 11/02/21 05:58 Band Neutrophils # 0.2 K/mm3 11/02/21 05:58 Lymphocytes # (Manual) 0.2 K/mm3 (1.2-5.4) L 11/02/21 05:58 Abs React Lymphs (Man) 0.0 K/mm3 11/02/21 05:58 Monocytes # (Manual) 0.6 K/mm3 (0.0-0.8) 11/02/21 05:58 Eosinophils # (Manual) 0.1 K/mm3 (0.0-0.4) 11/02/21 05:58 Basophils # (Manual) 0.0 K/mm3 (0.0-0.1) 11/02/21 05:58 Metamyelocytes # 0.1 K/mm3 11/02/21 05:58 Myelocytes # 0.0 K/mm3 11/02/21 05:58 Promyelocytes # 0.0 K/mm3 11/02/21 05:58 Blast Cells # 0.0 K/mm3 11/02/21 05:58 WBC Morphology Not Reportable 11/02/21 05:58 Hypersegmented Neuts Rare 11/02/21 05:58 Hyposegmented Neuts Not Reportable 11/02/21 05:58 Hypogranular Neuts Not Reportable 11/02/21 05:58 Smudge Cells Not Reportable 11/02/21 05:58 Toxic Granulation Not Reportable 11/02/21 05:58 Toxic Vacuolation Not Reportable 11/02/21 05:58 Dohle Bodies Not Reportable 11/02/21 05:58 Pelger-Huet Anomaly Not Reportable 11/02/21 05:58 Mu Rods Not Reportable 11/02/21 05:58 Platelet Estimate Consistent w auto 11/02/21 05:58 Clumped Platelets Not Reportable 11/02/21 05:58 Plt Clumps, EDTA Not Reportable 11/02/21 05:58 Large Platelets Not Reportable 11/02/21 05:58 Giant Platelets Not Reportable 11/02/21 05:58 Platelet Satelliting Not Reportable 11/02/21 05:58 Plt Morphology Comment Not Reportable 11/02/21 05:58 RBC Morphology Not Reportable 11/02/21 05:58 Dimorphic RBCs Not Reportable 11/02/21 05:58 Polychromasia Not Reportable 11/02/21 05:58 Hypochromasia Not Reportable 11/02/21 05:58 Poikilocytosis Not Reportable 11/02/21 05:58 Anisocytosis 1+ 11/02/21 05:58 Microcytosis Not Reportable 11/02/21 05:58 Macrocytosis Not Reportable 11/02/21 05:58 Spherocytes Not Reportable 11/02/21 05:58 Pappenheimer Bodies Not Reportable 11/02/21 05:58 Sickle Cells Not Reportable 11/02/21 05:58 Target Cells Not Reportable 11/02/21 05:58 Tear Drop Cells Not Reportable 11/02/21 05:58 Ovalocytes Not Reportable 11/02/21 05:58 Helmet Cells Not Reportable 11/02/21 05:58 Liu-Winside Bodies Not Reportable 11/02/21 05:58 Morton Rings Not Reportable 11/02/21 05:58 Foreman Cells Not Reportable 11/02/21 05:58 Bite Cells Not Reportable 11/02/21 05:58 Crenated Cell Not Reportable 11/02/21 05:58 Elliptocytes Not Reportable 11/02/21 05:58 Acanthocytes (Spur) Not Reportable 11/02/21 05:58 Rouleaux Not Reportable 11/02/21 05:58 Hemoglobin C Crystals Not Reportable 11/02/21 05:58 Schistocytes Not Reportable 11/02/21 05:58 Malaria parasites Not Reportable 11/02/21 05:58 Salinas Bodies Not Reportable 11/02/21 05:58 Hem Pathologist Commnt No 11/02/21 05:58 D-Dimer 1199.73 ng/mlDDU (0-234) H 11/03/21 16:14 Sodium 139 mmol/L (137-145) 11/03/21 16:14 Potassium 4.2 mmol/L (3.6-5.0) 11/03/21 16:14 Chloride 107.8 mmol/L (98-107) H 11/03/21 16:14 Carbon Dioxide 17 mmol/L (22-30) L 11/03/21 16:14 Anion Gap 18 mmol/L 11/03/21 16:14 BUN 16 mg/dL (9-20) 11/03/21 16:14 Creatinine 0.7 mg/dL (0.8-1.3) L 11/03/21 16:14 Estimated GFR > 60 ml/min 11/03/21 16:14 BUN/Creatinine Ratio 23 % 11/03/21 16:14 Glucose 180 mg/dL (75-100) H 11/03/21 16:14 Calcium 8.4 mg/dL (8.4-10.2) 11/03/21 16:14 Ferritin 1056.0 ng/mL (30.0-300.0) H 11/03/21 16:14 Total Bilirubin 0.20 mg/dL (0.1-1.2) 11/03/21 16:14 AST 49 units/L (5-40) H 11/03/21 16:14 ALT 38 units/L (7-56) 11/03/21 16:14 Alkaline Phosphatase 82 units/L (35-129) 11/03/21 16:14 Lactate Dehydrogenase 331 units/L (91-180) H 11/03/21 16:14 C-Reactive Protein 12.20 mg/dL (0.00-1.30) H 11/03/21 16:14 Total Protein 7.3 g/dL (6.3-8.2) 11/03/21 16:14 Albumin 2.4 g/dL (3.9-5) L 11/03/21 16:14 Albumin/Globulin Ratio 0.5 % 11/03/21 16:14 Procalcitonin 0.32 ng/mL (<0.15) 11/03/21 16:14 Coronavirus (PCR) Positive (Negative) A 11/02/21 09:50 Clancy/IV: Voiding Method Condom Catheter Active Medications - Current Medications Current Medications: Generic Name Dose Route Start Last Admin Trade Name Freq PRN Reason Stop Dose Admin Acetaminophen 650 mg 11/02/21 08:39 Acetaminophen 325 Mg Tab PO Q4H PRN Pain MILD(1-3)/Fever >100.5/ROSARIO Albuterol 2.5 mg 11/01/21 12:23 Albuterol 2.5 Mg/3 Ml Nebu IH Q4HRT PRN Shortness Of Breath Aripiprazole 5 mg 11/02/21 10:00 11/03/21 09:15 Aripiprazole 5 Mg Tab PO 5 mg QDAY GABRIELLE Administration Azithromycin 500 mg 11/01/21 15:00 11/03/21 09:15 Azithromycin 250 Mg Tab PO 500 mg QDAY GABRIELLE Administration Protocol Chlordiazepoxide HCl 25 mg 11/02/21 08:26 Chlordiazepoxide 25 Mg Cap PO BID PRN Anxiety Divalproex Sodium 125 mg 11/02/21 14:00 11/03/21 21:[address] 125 Mg Tab PO 125 mg TID GABRIELLE Administration Escitalopram Oxalate 20 mg 11/02/21 10:00 11/03/21 09:14 Escitalopram 10 Mg Tab PO 20 mg QDAY GABRIELLE Administration Fluconazole 200 mg 11/03/21 10:00 11/03/21 10:05 Fluconazole 200 Mg Tab PO 11/16/21 10:01 200 mg QDAY GABRIELLE Administration Protocol Folic Acid 1 mg 11/02/21 10:00 11/03/21 09:15 Folic Acid 1 Mg Tab PO 1 mg QDAY GABRIELLE Administration Guaifenesin 200 mg 11/03/21 15:50 11/03/21 17:55 Guaifenesin 200 Mg Tab PO 200 mg Q6H PRN Administration Cough Hydromorphone HCl 0.5 mg 11/01/21 12:23 Hydromorphone 0.5 Mg/0.5 Ml Inj IV Q13H PRN Pain , Severe (7-10) Sodium Chloride 1,000 mls @ 75 mls/hr 11/01/21 15:00 11/02/21 22:29 Nacl 0.9% 1000 Ml IV 75 mls/hr DIRECT GABRIELLE Administration Ceftriaxone Sodium 2 gm in 100 mls @ 200 mls/hr 11/01/21 15:00 11/03/21 17:56 Rocephin/Ns 2 Gm/100 Ml IV 200 mls/hr Q24H GABRIELLE Administration Protocol Remdesivir 100 mg/ Sodium 250 mls @ 500 mls/hr 11/03/21 14:00 11/03/21 15:07 Chloride IV 11/06/21 14:29 500 mls/hr Q24HR@1400 GABRIELLE Administration Melatonin 5 mg 11/02/21 21:00 Melatonin 5 Mg Tab PO QHS PRN Sleep Mirtazapine 7.5 mg 11/02/21 22:00 11/03/21 21:35 Mirtazapine 15 Mg Tab PO 7.5 mg QHS GABRIELLE Administration Nystatin 500,000 unit 11/02/21 14:00 11/03/21 21:35 Nystatin 500,000 Unit/5 Ml Oral Liqd PO 500,000 unit QID GABRIELLE Administration Ondansetron HCl 4 mg 11/01/21 12:23 Ondansetron 4 Mg/2 Ml Inj IV Q8H PRN Nausea And Vomiting Oxycodone/Acetaminophen 1 tab 11/01/21 12:23 Oxycodone /Acetaminophen 5-325mg Tab PO Q6H PRN Pain, Moderate (4-6) Pantoprazole Sodium 40 mg 11/02/21 09:00 11/03/21 15:32 Pantoprazole 40 Mg Tab PO 40 mg BIDAC GABRIELLE Administration Sodium Chloride 10 ml 11/01/21 22:00 11/03/21 21:35 Sodium Chloride 0.9% 10 Ml Flush Syringe IV 10 ml BID GABRIELLE Administration Sodium Chloride 10 ml 11/01/21 12:23 Sodium Chloride 0.9% 10 Ml Flush Syringe IV PRN PRN LINE FLUSH Sodium Chloride 50 ml 11/03/21 18:00 11/03/21 19:12 Sodium Chloride 0.9% 50 Ml Ivpb IV 11/07/21 14:01 Not Given Q24HR@1400 GABRIELLE Trazodone HCl 50 mg 11/02/21 22:00 11/03/21 21:36 Trazodone 50 Mg Tab PO 50 mg QHS GABRIELLE Administration Trimethoprim/Sulfamethoxazole 1 each 11/03/21 10:00 11/03/21 09:15 Sulfamethoxazole/Trimethoprim 800/160mg Ds Tab PO 1 each DAILY GABRIELLE Administration Protocol Nutrition/Malnutrition Assess - Dietary Evaluation Nutrition/Malnutrition Findings: Nutrition Notes Start: 11/02/21 14:18 Freq: Status: Active Protocol: Document 11/03/21 13:33 CM (Rec: 11/03/21 13:40 CM [id number]) Co-Sign 11/03/21 13:33 WW Nutrition Notes Initial or Follow up Brief Note Current Diagnosis COPD Other Pertinent Diagnosis Vascular dementia, cerebral atherosclerosis, ETOH dependence, HIV, Hep Current Diet Full Liquid Diet Labs/Tests 11/03: Na 135 Glu 71 Pertinent Medications 11/03: Folic Acid Height 5 ft 9 in Weight 48.5 kg [place] Body Weight (kg) 72.72 BMI 15.7 Weight Status Underweight Subjective/Other Information RD follow-up per protocol. Pt advanced to full liquid diet per MD. HVAC/R INSTRUCTOR consult 11/01 - still pending. No diet % recorded per ADL notes. No GI symptoms reported per physical assessment. Percent of energy/protein needs met: Full Liquid Diet provides 1155kcal / 37g PRO q day. 68% Kcal / 64% AA before the addition of nutrition supplements. #1 Nutrition Diagnosis Malnutrition Diagnosis Progress(for reassessment Continues documentation) Is patient on ventilator? No Is Patient Ambulatory and/or Out of Bed No REE-(Independence-St. Jeor-confined to bed) 1541.724 Kcal/Kg value to use for calculation 35 Approximate Energy Requirements Using 1698 kcal/Kg Calculation Used for Recommendations Kcal/kg Additional Notes 1.2-2.0g/kg ABW; 58-97g PRO q day Fluid Needs: 1mL/kcal Nutrition Intervention Change Diet Order: Pt to advance to regular diet with texture modifications per HVAC/R INSTRUCTOR. Add Supplement/Snack (indicate name/kcal Ensure Enlive (Variety) TID /protein ) Provides kCal: 1,050 Provides Protein (gm) 60 Goal #1 Pt to consume >75% of estimated energy/protein needs through current diet order and nutrition supplements. Goal #2 Pt to maintain current wt status. Follow-Up By: 11/08/21 Additional Comments Monitor diet texture modification, wt status, %PO intake, and GI symptoms.
[2021-11-04] MEDS: DIVALPROEX DR 125 MG TAB PO SCH ×3 (09:26→22:54)
[2021-11-04] MEDS: NYSTATIN 500,000 UNIT/5 ML ORAL LIQD PO SCH ×4 (10:27→22:47)
[2021-11-04] MEDS: PANTOPRAZOLE 40 MG TAB PO SCH ×2 (10:29→18:29)
[2021-11-04] MEDS: FOLIC ACID 1 MG TAB PO SCH (11:28)
[2021-11-04] MEDS: FLUCONAZOLE 200 MG TAB PO SCH (11:29)
[2021-11-04] MEDS: SULFAMETHOXAZOLE/TRIMETHOPRIM 800/160MG DS TAB PO SCH (12:28)
[2021-11-04] MEDS: DEXAMETHASONE 4 MG TAB PO SCH (12:28)
--- NOTE | 2021-11-04 15:19 | Cat Scan Report ---
CTA CHEST WITH CONTRAST INDICATION / CLINICAL INFORMATION: R/O PE. TECHNIQUE: Axial CT images were obtained through the chest after injection of IV contrast. 3 plane UT P and/or 3D reconstructions were produced. All CT scans at this location are performed using CT dose reduction for ALARA by means of automated exposure control. COMPARISON: Chest radiograph 2 days ago. FINDINGS: PULMONARY EMBOLUS: None. THORACIC AORTA: Normal caliber, luminal evaluation limited on the basis of contrast bolus timing opti mized for pulmonary trauma evaluation. HEART: No significant abnormality. CORONARY ARTERY CALCIFICATION: Present -- Mild. MEDIASTINUM / JESSIE: Circumferential esophageal thickening. PLEURA: No pleural effusion. No pneumothorax. LUNGS: Severe centrilobular emphysema. Mild left basilar interstitial and groundglass opacities. ADDITIONAL FINDINGS: None. UPPER ABDOMEN: No acute findings. SKELETAL STRUCTURES: No significant osseous abnormality. IMPRESSION: 1. No CT evidence for pulmonary embolism. 2. Severe pulmonary emphysema, with a component of mild left basilar mixed groundglass and interstit ial opacities which are nonspecific, a component which potentially chronic however mild left basilar inflammatory or infectious pneumonitis is not excluded. 3. Diffuse esophageal thickening particularly distally best concerning for esophagitis. Signer Name: Lisha Post MD Signed: 11/04/2021 3:14 PM Workstation Name: [id number]
[2021-11-04] MEDS: REMDESIVIR 100 MG in SODIUM CHLORIDE 0.9% 250ML 250 ML IV SCH (18:26)
[2021-11-04] MEDS: ARIPiprazole 5 MG TAB PO SCH (18:31)
[2021-11-04] MEDS: SODIUM CHLORIDE 0.9% 50 ML IVPB IV SCH (18:31)
[2021-11-04] MEDS: ESCITALOPRAM 10 MG TAB PO SCH (18:32)
[2021-11-04 21:55] LABS: Alanine Aminotransferase 38 units/L (7-56); Albumin 2.3 g/dL (3.9-5); BUN/Creatinine Ratio 19; Blood Urea Nitrogen 15 mg/dL (9-20); Calcium 7.8 mg/dL (8.4-10.2); Hemolysis Index 32
[2021-11-04] MEDS: MIRTAZAPINE 15 MG TAB PO SCH (22:47)
[2021-11-04] MEDS: traZODone 50 MG TAB PO SCH (22:48)
--- NOTE | 2021-11-05 07:53 | Progress Note ---
Assessment and Plan Assessment and plan: #Acute hypoxic respiratory failure #Pneumonia-viral versus bacterial cause #COVID-19 infection #Emphysema -CXR reviewed -COVID PCR positive -Patient noted to have oxygen saturation as low as 89% continue remdesivir -Continue Rocephin and azithromycin for now -D-dimer, LDH and ferritin elevated; procalcitonin 0.32 -dexamethasone started, continuous pulse oximetry -CTA of chest negative for PE -Infectious disease following, assistance appreciated #Acute metabolic encephalopathy-resolved -CT head negative -likely due to illness #HIV disease -Not currently taking antiretroviral drugs -CD4 count, PCR ordered -continue bactrim ppx -Follow-up with ID outpatient #Oral candidiasis-improving -Nystatin swish and swallow 4 times daily + fluconazole #Schizophrenia #Unspecified mood disorder #Anxiety depression -continue lexapro and depakote -Psychiatry following, assistance appreciated #Alcohol abuse #Alcoholic withdrawals - continue librium taper - behavioral health counseling administered which included education on benefits of alcohol cessation as well as options for quitting. 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 #moderate protein calorie malnutrition -albumin 2.6 -likely secondary to ETOH abuse #Fall -Patient reports fall last night while ambulating to the bathroom and hit the back of his neck -X-ray of C-spine negative -PT evaluation pending #Advance care planning -Disease education conducted, care plan discussed, diagnoses discussed, prognosis discussed, patient is full code, patient acknowledges understanding and agree with care plan, +30 minutes. #Discharge planning -Patient from [facility] and checked himself into the hospital for Psychiatric care -sales activity manager/social worker aide following for safe discharge History Interval history: Patient seen at bedside. He denies chest pain and shortness of breath at this time. He was updated about CT angio of the chest results. Patient reports being a longtime smoker and smoking up to 1 pack/day. Hospitalist Physical - Physical exam Narrative exam: GENERAL: Cachectic male. In no acute distress. HEENT: Oral thrush improving. CHEST/LUNGS: CTAB on room air HEART/CARDIOVASCULAR: RRR. No murmur, rubs or gallops appreciated. ABDOMEN: +BS. NT/ND. NEURO: No focal motor deficit. Follows all commands. MUSCULOSKELETAL: No joint effusion EXTREMITIES: No cyanosis, clubbing or edema. PSYCH: Cooperative. - Constitutional Vitals: Temp Pulse Resp BP Pulse Ox 97.8 F 76 18 123/74 92 11/05/21 05:00 11/05/21 05:00 11/05/21 05:00 11/05/21 05:00 11/05/21 05:02 General appearance: Present: mild distress, cachectic Results - Labs CBC & Chem 7: 11/02/21 05:58 11/05/21 06:53 Labs: Laboratory Last Values WBC 10.6 K/mm3 (4.5-11.0) 11/02/21 05:58 RBC 4.37 M/mm3 (3.65-5.03) 11/02/21 05:58 Hgb 13.1 gm/dl (11.8-15.2) 11/02/21 05:58 Hct 40.0 % (35.5-45.6) 11/02/21 05:58 MCV 92 fl (84-94) 11/02/21 05:58 MCH 30 pg (28-32) 11/02/21 05:58 MCHC 33 % (32-34) 11/02/21 05:58 RDW 14.2 % (13.2-15.2) 11/02/21 05:58 Plt Count 286 K/mm3 (140-440) 11/02/21 05:58 [place] % (Auto) Data Security Administrator 11/02/21 05:58 Add Manual Diff Complete 11/02/21 05:58 Total Counted 100 11/02/21 05:58 Seg Neutrophils % Data Security Administrator 11/02/21 05:58 Seg Neuts % (Manual) 88.0 % (40.0-70.0) H 11/02/21 05:58 Band Neutrophils % 2.0 % 11/02/21 05:58 Lymphocytes % (Manual) 2.0 % (13.4-35.0) L 11/02/21 05:58 Reactive Lymphs % (Man) 0 % 11/02/21 05:58 Monocytes % (Manual) 6.0 % (0.0-7.3) 11/02/21 05:58 Eosinophils % (Manual) 1.0 % (0.0-4.3) 11/02/21 05:58 Basophils % (Manual) 0 % (0.0-1.8) 11/02/21 05:58 Metamyelocytes % 1.0 % 11/02/21 05:58 Myelocytes % 0 % 11/02/21 05:58 Promyelocytes % 0 % 11/02/21 05:58 Blast Cells % 0 % 11/02/21 05:58 Nucleated RBC % Not Reportable 11/02/21 05:58 Seg Neutrophils # Man 9.3 K/mm3 (1.8-7.7) H 11/02/21 05:58 Band Neutrophils # 0.2 K/mm3 11/02/21 05:58 Lymphocytes # (Manual) 0.2 K/mm3 (1.2-5.4) L 11/02/21 05:58 Abs React Lymphs (Man) 0.0 K/mm3 11/02/21 05:58 Monocytes # (Manual) 0.6 K/mm3 (0.0-0.8) 11/02/21 05:58 Eosinophils # (Manual) 0.1 K/mm3 (0.0-0.4) 11/02/21 05:58 Basophils # (Manual) 0.0 K/mm3 (0.0-0.1) 11/02/21 05:58 Metamyelocytes # 0.1 K/mm3 11/02/21 05:58 Myelocytes # 0.0 K/mm3 11/02/21 05:58 Promyelocytes # 0.0 K/mm3 11/02/21 05:58 Blast Cells # 0.0 K/mm3 11/02/21 05:58 WBC Morphology Not Reportable 11/02/21 05:58 Hypersegmented Neuts Rare 11/02/21 05:58 Hyposegmented Neuts Not Reportable 11/02/21 05:58 Hypogranular Neuts Not Reportable 11/02/21 05:58 Smudge Cells Not Reportable 11/02/21 05:58 Toxic Granulation Not Reportable 11/02/21 05:58 Toxic Vacuolation Not Reportable 11/02/21 05:58 Dohle Bodies Not Reportable 11/02/21 05:58 Pelger-Huet Anomaly Not Reportable 11/02/21 05:58 Mu Rods Not Reportable 11/02/21 05:58 Platelet Estimate Consistent w auto 11/02/21 05:58 Clumped Platelets Not Reportable 11/02/21 05:58 Plt Clumps, EDTA Not Reportable 11/02/21 05:58 Large Platelets Not Reportable 11/02/21 05:58 Giant Platelets Not Reportable 11/02/21 05:58 Platelet Satelliting Not Reportable 11/02/21 05:58 Plt Morphology Comment Not Reportable 11/02/21 05:58 RBC Morphology Not Reportable 11/02/21 05:58 Dimorphic RBCs Not Reportable 11/02/21 05:58 Polychromasia Not Reportable 11/02/21 05:58 Hypochromasia Not Reportable 11/02/21 05:58 Poikilocytosis Not Reportable 11/02/21 05:58 Anisocytosis 1+ 11/02/21 05:58 Microcytosis Not Reportable 11/02/21 05:58 Macrocytosis Not Reportable 11/02/21 05:58 Spherocytes Not Reportable 11/02/21 05:58 Pappenheimer Bodies Not Reportable 11/02/21 05:58 Sickle Cells Not Reportable 11/02/21 05:58 Target Cells Not Reportable 11/02/21 05:58 Tear Drop Cells Not Reportable 11/02/21 05:58 Ovalocytes Not Reportable 11/02/21 05:58 Helmet Cells Not Reportable 11/02/21 05:58 Liu-Metuc[place] Bodies Not Reportable 11/02/21 05:58 [place] Rings Not Reportable 11/02/21 05:58 Jose Roberto Cells Not Reportable 11/02/21 05:58 Bite Cells Not Reportable 11/02/21 05:58 Crenated Cell Not Reportable 11/02/21 05:58 Elliptocytes Not Reportable 11/02/21 05:58 Acanthocytes (Spur) Not Reportable 11/02/21 05:58 Rouleaux Not Reportable 11/02/21 05:58 Hemoglobin C Crystals Not Reportable 11/02/21 05:58 Schistocytes Not Reportable 11/02/21 05:58 Malaria parasites Not Reportable 11/02/21 05:58 [place] Bodies Not Reportable 11/02/21 05:58 Hem Pathologist Commnt No 11/02/21 05:58 D-Dimer 1199.73 ng/mlDDU (0-234) H 11/03/21 16:14 Sodium 139 mmol/L (137-145) 11/04/21 21:18 Potassium 3.4 mmol/L (3.6-5.0) L 11/04/21 21:18 Chloride 106.1 mmol/L (98-107) 11/04/21 21:18 Carbon Dioxide 24 mmol/L (22-30) D 11/04/21 21:18 Anion Gap 12 mmol/L 11/04/21 21:18 BUN 15 mg/dL (9-20) 11/04/21 21:18 Creatinine 0.8 mg/dL (0.8-1.3) 11/04/21 21:18 Estimated GFR > 60 ml/min 11/04/21 21:18 BUN/Creatinine Ratio 19 % 11/04/21 21:18 Glucose 130 mg/dL (75-100) H 11/04/21 21:18 Calcium 7.8 mg/dL (8.4-10.2) L 11/04/21 21:18 Ferritin 1056.0 ng/mL (30.0-300.0) H 11/03/21 16:14 Total Bilirubin 0.20 mg/dL (0.1-1.2) 11/04/21 21:18 AST 61 units/L (5-40) H 11/04/21 21:18 ALT 38 units/L (7-56) 11/04/21 21:18 Alkaline Phosphatase 80 units/L (35-129) 11/04/21 21:18 Lactate Dehydrogenase 331 units/L (91-180) H 11/03/21 16:14 C-Reactive Protein 12.20 mg/dL (0.00-1.30) H 11/03/21 16:14 Total Protein 6.9 g/dL (6.3-8.2) 11/04/21 21:18 Albumin 2.3 g/dL (3.9-5) L 11/04/21 21:18 Albumin/Globulin Ratio 0.5 % 11/04/21 21:18 Procalcitonin 0.32 ng/mL (<0.15) 11/03/21 16:14 Coronavirus (PCR) Positive (Negative) A 11/02/21 09:50 [place]/IV: Voiding Method Condom Catheter Active Medications - Current Medications Current Medications: Generic Name Dose Route Start Last Admin Trade Name Freq PRN Reason Stop Dose Admin Acetaminophen 650 mg 11/02/21 08:39 Acetaminophen 325 Mg Tab PO Q4H PRN Pain MILD(1-3)/Fever >100.5/ROSARIO Albuterol 2.5 mg 11/01/21 12:23 Albuterol 2.5 Mg/3 Ml Nebu IH Q4HRT PRN Shortness Of Breath Aripiprazole 5 mg 11/02/21 10:00 11/04/21 18:31 Aripiprazole 5 Mg Tab PO Not Given QDAY GABRIELLE Chlordiazepoxide HCl 25 mg 11/02/21 08:26 Chlordiazepoxide 25 Mg Cap PO BID PRN Anxiety Dexamethasone 6 mg 11/04/21 10:00 11/04/21 12:28 Dexamethasone 4 Mg Tab PO 6 mg QDAY GABRIELLE Administration Divalproex Sodium 125 mg 11/02/21 14:00 11/04/21 22:[address] 125 Mg Tab PO 125 mg TID GABRIELLE Administration Escitalopram Oxalate 20 mg 11/02/21 10:00 11/04/21 18:32 Escitalopram 10 Mg Tab PO Not Given QDAY GABRIELLE Fluconazole 200 mg 11/03/21 10:00 11/04/21 11:29 Fluconazole 200 Mg Tab PO 11/16/21 10:01 200 mg QDAY GABRIELLE Administration Protocol Folic Acid 1 mg 11/02/21 10:00 11/04/21 11:28 Folic Acid 1 Mg Tab PO 1 mg QDAY GABRIELLE Administration Guaifenesin 200 mg 11/03/21 15:50 11/03/21 17:55 Guaifenesin 200 Mg Tab PO 200 mg Q6H PRN Administration Cough Hydromorphone HCl 0.5 mg 11/01/21 12:23 Hydromorphone 0.5 Mg/0.5 Ml Inj IV Q13H PRN Pain , Severe (7-10) Sodium Chloride 1,000 mls @ 75 mls/hr 11/01/21 15:00 11/02/21 22:29 Nacl 0.9% 1000 Ml IV 75 mls/hr DIRECT GABRIELLE Administration Remdesivir 100 mg/ Sodium 250 mls @ 500 mls/hr 11/03/21 14:00 11/04/21 18:26 Chloride IV 11/06/21 14:29 500 mls/hr Q24HR@1400 GABRIELLE Administration Melatonin 5 mg 11/02/21 21:00 Melatonin 5 Mg Tab PO QHS PRN Sleep Mirtazapine 7.5 mg 11/02/21 22:00 11/04/21 22:47 Mirtazapine 15 Mg Tab PO 7.5 mg QHS GABRIELLE Administration Nystatin 500,000 unit 11/02/21 14:00 11/04/21 22:47 Nystatin 500,000 Unit/5 Ml Oral Liqd PO 500,000 unit QID GABRIELLE Administration Ondansetron HCl 4 mg 11/01/21 12:23 Ondansetron 4 Mg/2 Ml Inj IV Q8H PRN Nausea And Vomiting Oxycodone/Acetaminophen 1 tab 11/01/21 12:23 Oxycodone /Acetaminophen 5-325mg Tab PO Q6H PRN Pain, Moderate (4-6) Pantoprazole Sodium 40 mg 11/02/21 09:00 11/04/21 18:29 Pantoprazole 40 Mg Tab PO 40 mg BIDAC GABRIELLE Administration Sodium Chloride 10 ml 11/01/21 22:00 11/04/21 22:49 Sodium Chloride 0.9% 10 Ml Flush Syringe IV 10 ml BID GABRIELLE Administration Sodium Chloride 10 ml 11/01/21 12:23 Sodium Chloride 0.9% 10 Ml Flush Syringe IV PRN PRN LINE FLUSH Sodium Chloride 50 ml 11/03/21 18:00 11/04/21 18:31 Sodium Chloride 0.9% 50 Ml Ivpb IV 11/07/21 14:01 50 ml Q24HR@1400 GABRIELLE Administration Trazodone HCl 50 mg 11/02/21 22:00 11/04/21 22:48 Trazodone 50 Mg Tab PO 50 mg QHS GABRIELLE Administration Trimethoprim/Sulfamethoxazole 1 each 11/03/21 10:00 11/04/21 12:28 Sulfamethoxazole/Trimethoprim 800/160mg Ds Tab PO 1 each DAILY GABRIELLE Administration Protocol Nutrition/Malnutrition Assess - Dietary Evaluation Nutrition/Malnutrition Findings: Nutrition Notes Start: 11/02/21 14:18 Freq: Status: Active Protocol: Document 11/03/21 13:33 CM (Rec: 11/03/21 13:40 CM [id number]) Co-Sign 11/03/21 13:33 WW Nutrition Notes Initial or Follow up Brief Note Current Diagnosis COPD Other Pertinent Diagnosis Vascular dementia, cerebral atherosclerosis, ETOH dependence, HIV, Hep Current Diet Full Liquid Diet Labs/Tests 11/03: Na 135 Glu 71 Pertinent Medications 11/03: Folic Acid Height 5 ft 9 in Weight 48.5 kg [place] Body Weight (kg) 72.72 BMI 15.7 Weight Status Underweight Subjective/Other Information RD follow-up per protocol. Pt advanced to full liquid diet per MD. MANAGER LOCAL consult 11/01 - still pending. No diet % recorded per ADL notes. No GI symptoms reported per physical assessment. Percent of energy/protein needs met: Full Liquid Diet provides 1155kcal / 37g PRO q day. 68% Kcal / 64% AA before the addition of nutrition supplements. #1 Nutrition Diagnosis Malnutrition Diagnosis Progress(for reassessment Continues documentation) Is patient on ventilator? No Is Patient Ambulatory and/or Out of Bed No REE-([facility]-confined to bed) 1541.724 Kcal/Kg value to use for calculation 35 Approximate Energy Requirements Using 1698 kcal/Kg Calculation Used for Recommendations Kcal/kg Additional Notes 1.2-2.0g/kg ABW; 58-97g PRO q day Fluid Needs: 1mL/kcal Nutrition Intervention Change Diet Order: Pt to advance to regular diet with texture modifications per MANAGER LOCAL. Add Supplement/Snack (indicate name/kcal Ensure Enlive (Variety) TID /protein ) Provides kCal: 1,050 Provides Protein (gm) 60 Goal #1 Pt to consume >75% of estimated energy/protein needs through current diet order and nutrition supplements. Goal #2 Pt to maintain current wt status. Follow-Up By: 11/08/21 Additional Comments Monitor diet texture modification, wt status, %PO intake, and GI symptoms.
[2021-11-05 08:18] LABS: Alanine Aminotransferase 47 units/L (7-56); Albumin 2.3 g/dL (3.9-5); Blood Urea Nitrogen 11 mg/dL (9-20); Calcium 8.3 mg/dL (8.4-10.2); Hemolysis Index 113
[2021-11-05 08:23] LABS: BUN/Creatinine Ratio 16
[2021-11-05] MEDS: PANTOPRAZOLE 40 MG TAB PO SCH ×2 (09:23→16:23)
[2021-11-05] MEDS: DIVALPROEX DR 125 MG TAB PO SCH ×3 (09:24→22:06)
[2021-11-05] MEDS: NYSTATIN 500,000 UNIT/5 ML ORAL LIQD PO SCH ×3 (10:15→22:07)
[2021-11-05] MEDS: ESCITALOPRAM 10 MG TAB PO SCH (11:22)
[2021-11-05] MEDS: DEXAMETHASONE 4 MG TAB PO SCH (11:22)
[2021-11-05] MEDS: FLUCONAZOLE 200 MG TAB PO SCH (11:24)
[2021-11-05] MEDS: ARIPiprazole 5 MG TAB PO SCH (11:25)
[2021-11-05] MEDS: SULFAMETHOXAZOLE/TRIMETHOPRIM 800/160MG DS TAB PO SCH (11:26)
[2021-11-05] MEDS: FOLIC ACID 1 MG TAB PO SCH (12:25)
[2021-11-05] MEDS: REMDESIVIR 100 MG in SODIUM CHLORIDE 0.9% 250ML 250 ML IV SCH (16:27)
[2021-11-05] MEDS: SODIUM CHLORIDE 0.9% 50 ML IVPB IV SCH (16:40)
--- NOTE | 2021-11-05 21:14 | Progress Note ---
Subjective - Reason for Consult Consult date: 11/05/21 Reason for consult: mental health evaluation - Chief Complaint Chief complaint: 11/05: Patient seen today. Patient was alert, oriented x1, and cooperative throughout interview. Patient reports feeling "doing fpc," and endorses depressed mood due to lengthy hospitalization "I came to hospital thought I had one thing wrong with me, turns out I had COVID and pneumonia." Patient reports 1 suicide attempt in 2000 by hanging, but denies history of suicidal ideation since then. Patient denies anxiety, irritability, HI, and hallucinations. Patient reports difficulty falling asleep; patient reports "I sleep more in daytime then at nights." Patient reports good appetite. MENTAL STATUS EXAMINATION General Appearance and Behavior: disheveled, cooperative, polite with quest ioning, poor eye contact Cooperation: Cooperative Psychomotor Behavior: Slowed movements Mood: depressed Affect and affective range: calm, sad Thought Process: goal-directed Thought Content: reality-based Speech: Quiet, slow, regular rhythm Suicidal Ideation: Denies Homicidal Ideation: Denies Hallucination: Denies Delusions: Denies Impulse Control: Fair Insight and Judgment: Normal Memory: Intact Attention: Distracted Orientation: Alert and oriented x1 Diagnoses: Major Depressive Disorder Treatment Plan Appreciate restarting home meds Changed melatonin 5 mg qhs PRN to [facility] PSYCHOTHERAPY: Supportive psychotherapy provided MEDICAL: Per primary team DELIRIUM PRECAUTIONS: Please re-orient patient frequently, keep lights on during the day, and minimize benzodiazepines and opiates as these medications could worsen patient's confusion. ASPHALT PATCHER: Defer to primary DISPOSITION: Do not recommend acute inpatient psychiatric hospitalization at this time. FOLLOW-UP: Will follow. Thanks Case staffed with Dr. Keven Mercado. Mental Status Exam - Vital signs Last Vital Signs Temp 97.9 F 11/05/21 16:18 Pulse 71 11/05/21 11:27 Resp 18 11/05/21 16:18 BP 125/83 11/05/21 16:18 Pulse Ox 92 11/05/21 11:27
[2021-11-05] MEDS: MIRTAZAPINE 15 MG TAB PO SCH (22:06)
[2021-11-05] MEDS: traZODone 50 MG TAB PO SCH (22:07)
[2021-11-06] MEDS: MELATONIN 5 MG TAB PO SCH ×2 (02:18→22:27)
[2021-11-06] MEDS: NYSTATIN 500,000 UNIT/5 ML ORAL LIQD PO SCH ×4 (10:10→22:26)
[2021-11-06] MEDS: DEXAMETHASONE 4 MG TAB PO SCH (10:10)
[2021-11-06] MEDS: DIVALPROEX DR 125 MG TAB PO SCH ×3 (10:10→22:26)
[2021-11-06] MEDS: FLUCONAZOLE 200 MG TAB PO SCH (10:11)
[2021-11-06] MEDS: ESCITALOPRAM 10 MG TAB PO SCH (10:11)
[2021-11-06] MEDS: ARIPiprazole 5 MG TAB PO SCH (10:12)
[2021-11-06] MEDS: PANTOPRAZOLE 40 MG TAB PO SCH ×2 (10:16→15:43)
[2021-11-06] MEDS: FOLIC ACID 1 MG TAB PO SCH (10:16)
[2021-11-06] MEDS: SULFAMETHOXAZOLE/TRIMETHOPRIM 800/160MG DS TAB PO SCH (10:17)
--- NOTE | 2021-11-06 11:43 | Progress Note ---
Assessment and Plan Assessment and plan: #Acute hypoxic respiratory failure #Pneumonia-viral versus bacterial cause #COVID-19 infection #Emphysema -CXR reviewed -COVID PCR positive -Patient noted to have oxygen saturation as low as 89% continue remdesivir -patient currently on 2LNC, will wean as tolerated -home oxygen walk test prior to discharge -Continue Rocephin and azithromycin for now -D-dimer, LDH and ferritin elevated; procalcitonin 0.32 -dexamethasone started, continuous pulse oximetry -CTA of chest negative for PE -Infectious disease following, assistance appreciated #Acute metabolic encephalopathy-resolved -CT head negative -likely due to illness #HIV disease -Not currently taking antiretroviral drugs -CD4 count, PCR ordered -continue bactrim ppx -Follow-up with ID outpatient #Oral candidiasis-improving -Nystatin swish and swallow 4 times daily + fluconazole #Schizophrenia #Unspecified mood disorder #Anxiety depression -continue lexapro and depakote -Psychiatry following, assistance appreciated #Alcohol abuse #Alcoholic withdrawals - continue librium taper - behavioral health counseling administered which included education on benefits of alcohol cessation as well as options for quitting. +15 min #Tobacco dependence #Smoking cessation counseling -Patient has history of smoking up to 1 pack of cigarettes daily along with crack cocaine abuse in the past -Smoking cessation counseling, supportive care, behavior change counseling, +15 minutes. #moderate protein calorie malnutrition -albumin 2.6 -likely secondary to ETOH abuse #Fall -Patient reports fall last night while ambulating to the bathroom and hit the back of his neck -X-ray of C-spine negative -PT evaluation pending #Advance care planning -Disease education conducted, care plan discussed, diagnoses discussed, prognosis discussed, patient is full code, patient acknowledges understanding and agree with care plan, +30 minutes. #Discharge planning -plan to discharge in the next 24-48hrs pending home O2 evaluation/PT -food operations manager/social work assistant following for safe discharge History Interval history: Patient seen at bedside. He reports shortness of breath and is now on supplemental oxygen. He has no complaints at this time. Hospitalist Physical - Physical exam Narrative exam: GENERAL: Cachectic male. In no acute distress. HEENT: NC in place @2LPM. Oral thrush improving. CHEST/LUNGS: CTAB on room air HEART/CARDIOVASCULAR: RRR. No murmur, rubs or gallops appreciated. ABDOMEN: +BS. NT/ND. NEURO: No focal motor deficit. Follows all commands. MUSCULOSKELETAL: No joint effusion EXTREMITIES: No cyanosis, clubbing or edema. PSYCH: Cooperative. - Constitutional Vitals: Temp Pulse Resp BP Pulse Ox 98.2 F 63 19 131/78 97 11/06/21 05:45 11/06/21 05:45 11/06/21 05:45 11/06/21 05:45 11/06/21 05:45 General appearance: Present: mild distress, cachectic Results - Labs CBC & Chem 7: 11/02/21 05:58 11/05/21 06:53 Labs: Laboratory Last Values WBC 10.6 K/mm3 (4.5-11.0) 11/02/21 05:58 RBC 4.37 M/mm3 (3.65-5.03) 11/02/21 05:58 Hgb 13.1 gm/dl (11.8-15.2) 11/02/21 05:58 Hct 40.0 % (35.5-45.6) 11/02/21 05:58 MCV 92 fl (84-94) 11/02/21 05:58 MCH 30 pg (28-32) 11/02/21 05:58 MCHC 33 % (32-34) 11/02/21 05:58 RDW 14.2 % (13.2-15.2) 11/02/21 05:58 Plt Count 286 K/mm3 (140-440) 11/02/21 05:58 Crook % (Auto) Master Certified Rv Technician 11/02/21 05:58 Add Manual Diff Complete 11/02/21 05:58 Total Counted 100 11/02/21 05:58 Seg Neutrophils % Master Certified Rv Technician 11/02/21 05:58 Seg Neuts % (Manual) 88.0 % (40.0-70.0) H 11/02/21 05:58 Band Neutrophils % 2.0 % 11/02/21 05:58 Lymphocytes % (Manual) 2.0 % (13.4-35.0) L 11/02/21 05:58 Reactive Lymphs % (Man) 0 % 11/02/21 05:58 Monocytes % (Manual) 6.0 % (0.0-7.3) 11/02/21 05:58 Eosinophils % (Manual) 1.0 % (0.0-4.3) 11/02/21 05:58 Basophils % (Manual) 0 % (0.0-1.8) 11/02/21 05:58 Metamyelocytes % 1.0 % 11/02/21 05:58 Myelocytes % 0 % 11/02/21 05:58 Promyelocytes % 0 % 11/02/21 05:58 Blast Cells % 0 % 11/02/21 05:58 Nucleated RBC % Not Reportable 11/02/21 05:58 Seg Neutrophils # Man 9.3 K/mm3 (1.8-7.7) H 11/02/21 05:58 Band Neutrophils # 0.2 K/mm3 11/02/21 05:58 Lymphocytes # (Manual) 0.2 K/mm3 (1.2-5.4) L 11/02/21 05:58 Abs React Lymphs (Man) 0.0 K/mm3 11/02/21 05:58 Monocytes # (Manual) 0.6 K/mm3 (0.0-0.8) 11/02/21 05:58 Eosinophils # (Manual) 0.1 K/mm3 (0.0-0.4) 11/02/21 05:58 Basophils # (Manual) 0.0 K/mm3 (0.0-0.1) 11/02/21 05:58 Metamyelocytes # 0.1 K/mm3 11/02/21 05:58 Myelocytes # 0.0 K/mm3 11/02/21 05:58 Promyelocytes # 0.0 K/mm3 11/02/21 05:58 Blast Cells # 0.0 K/mm3 11/02/21 05:58 WBC Morphology Not Reportable 11/02/21 05:58 Hypersegmented Neuts Rare 11/02/21 05:58 Hyposegmented Neuts Not Reportable 11/02/21 05:58 Hypogranular Neuts Not Reportable 11/02/21 05:58 Smudge Cells Not Reportable 11/02/21 05:58 Toxic Granulation Not Reportable 11/02/21 05:58 Toxic Vacuolation Not Reportable 11/02/21 05:58 Dohle Bodies Not Reportable 11/02/21 05:58 Pelger-Huet Anomaly Not Reportable 11/02/21 05:58 Mu Rods Not Reportable 11/02/21 05:58 Platelet Estimate Consistent w auto 11/02/21 05:58 Clumped Platelets Not Reportable 11/02/21 05:58 Plt Clumps, EDTA Not Reportable 11/02/21 05:58 Large Platelets Not Reportable 11/02/21 05:58 Giant Platelets Not Reportable 11/02/21 05:58 Platelet Satelliting Not Reportable 11/02/21 05:58 Plt Morphology Comment Not Reportable 11/02/21 05:58 RBC Morphology Not Reportable 11/02/21 05:58 Dimorphic RBCs Not Reportable 11/02/21 05:58 Polychromasia Not Reportable 11/02/21 05:58 Hypochromasia Not Reportable 11/02/21 05:58 Poikilocytosis Not Reportable 11/02/21 05:58 Anisocytosis 1+ 11/02/21 05:58 Microcytosis Not Reportable 11/02/21 05:58 Macrocytosis Not Reportable 11/02/21 05:58 Spherocytes Not Reportable 11/02/21 05:58 Pappenheimer Bodies Not Reportable 11/02/21 05:58 Sickle Cells Not Reportable 11/02/21 05:58 Target Cells Not Reportable 11/02/21 05:58 Tear Drop Cells Not Reportable 11/02/21 05:58 Ovalocytes Not Reportable 11/02/21 05:58 Helmet Cells Not Reportable 11/02/21 05:58 Liu-Badger Lee Bodies Not Reportable 11/02/21 05:58 [place] Rings Not Reportable 11/02/21 05:58 [place] Cells Not Reportable 11/02/21 05:58 Bite Cells Not Reportable 11/02/21 05:58 Crenated Cell Not Reportable 11/02/21 05:58 Elliptocytes Not Reportable 11/02/21 05:58 Acanthocytes (Spur) Not Reportable 11/02/21 05:58 Rouleaux Not Reportable 11/02/21 05:58 Hemoglobin C Crystals Not Reportable 11/02/21 05:58 Schistocytes Not Reportable 11/02/21 05:58 Malaria parasites Not Reportable 11/02/21 05:58 [place] Bodies Not Reportable 11/02/21 05:58 Hem Pathologist Commnt No 11/02/21 05:58 D-Dimer 1199.73 ng/mlDDU (0-234) H 11/03/21 16:14 Sodium 139 mmol/L (137-145) 11/05/21 06:53 Potassium 5.2 mmol/L (3.6-5.0) H D 11/05/21 06:53 Chloride 105.4 mmol/L (98-107) 11/05/21 06:53 Carbon Dioxide 23 mmol/L (22-30) 11/05/21 06:53 Anion Gap 16 mmol/L 11/05/21 06:53 BUN 11 mg/dL (9-20) 11/05/21 06:53 Creatinine 0.7 mg/dL (0.8-1.3) L 11/05/21 06:53 Estimated GFR > 60 ml/min 11/05/21 06:53 BUN/Creatinine Ratio 16 % 11/05/21 06:53 Glucose 75 mg/dL (75-100) 11/05/21 06:53 Calcium 8.3 mg/dL (8.4-10.2) L 11/05/21 06:53 Ferritin 1056.0 ng/mL (30.0-300.0) H 11/03/21 16:14 Total Bilirubin 0.20 mg/dL (0.1-1.2) 11/05/21 06:53 AST 61 units/L (5-40) H 11/05/21 06:53 ALT 47 units/L (7-56) 11/05/21 06:53 Alkaline Phosphatase 80 units/L (35-129) 11/05/21 06:53 Lactate Dehydrogenase 331 units/L (91-180) H 11/03/21 16:14 C-Reactive Protein 12.20 mg/dL (0.00-1.30) H 11/03/21 16:14 Total Protein 7.0 g/dL (6.3-8.2) 11/05/21 06:53 Albumin 2.3 g/dL (3.9-5) L 11/05/21 06:53 Albumin/Globulin Ratio 0.5 % 11/05/21 06:53 Procalcitonin 0.32 ng/mL (<0.15) 11/03/21 16:14 Coronavirus (PCR) Positive (Negative) A 11/02/21 09:50 Clancy/IV: Voiding Method Condom Catheter Active Medications - Current Medications Current Medications: Generic Name Dose Route Start Last Admin Trade Name Freq PRN Reason Stop Dose Admin Acetaminophen 650 mg 11/02/21 08:39 Acetaminophen 325 Mg Tab PO Q4H PRN Pain MILD(1-3)/Fever >100.5/ROSARIO Albuterol 2.5 mg 11/01/21 12:23 Albuterol 2.5 Mg/3 Ml Nebu IH Q4HRT PRN Shortness Of Breath Aripiprazole 5 mg 11/02/21 10:00 11/06/21 10:12 Aripiprazole 5 Mg Tab PO 5 mg QDAY GABRIELLE Administration Dexamethasone 6 mg 11/04/21 10:00 11/06/21 10:10 Dexamethasone 4 Mg Tab PO 6 mg QDAY GABRIELLE Administration Divalproex Sodium 125 mg 11/02/21 14:00 11/06/21 10:[address] 125 Mg Tab PO 125 mg TID GABRIELLE Administration Escitalopram Oxalate 20 mg 11/02/21 10:00 11/06/21 10:11 Escitalopram 10 Mg Tab PO 20 mg QDAY GABRIELLE Administration Fluconazole 200 mg 11/03/21 10:00 11/06/21 10:11 Fluconazole 200 Mg Tab PO 11/16/21 10:01 200 mg QDAY GABRIELLE Administration Protocol Folic Acid 1 mg 11/02/21 10:00 11/06/21 10:16 Folic Acid 1 Mg Tab PO 1 mg QDAY GABRIELLE Administration Guaifenesin 200 mg 11/03/21 15:50 11/03/21 17:55 Guaifenesin 200 Mg Tab PO 200 mg Q6H PRN Administration Cough Hydromorphone HCl 0.5 mg 11/01/21 12:23 Hydromorphone 0.5 Mg/0.5 Ml Inj IV Q13H PRN Pain , Severe (7-10) Remdesivir 100 mg/ Sodium 250 mls @ 500 mls/hr 11/03/21 14:00 11/05/21 16:27 Chloride IV 11/06/21 14:29 500 mls/hr Q24HR@1400 GABRIELLE Administration Melatonin 5 mg 11/02/21 21:00 Melatonin 5 Mg Tab PO QHS PRN Sleep Melatonin 5 mg 11/05/21 22:00 11/06/21 02:18 Melatonin 5 Mg Tab PO Not Given QHS GABRIELLE Mirtazapine 7.5 mg 11/02/21 22:00 11/05/21 22:06 Mirtazapine 15 Mg Tab PO 7.5 mg QHS GABRIELLE Administration Nystatin 500,000 unit 11/02/21 14:00 11/06/21 10:10 Nystatin 500,000 Unit/5 Ml Oral Liqd PO 500,000 unit QID GABRIELLE Administration Ondansetron HCl 4 mg 11/01/21 12:23 Ondansetron 4 Mg/2 Ml Inj IV Q8H PRN Nausea And Vomiting Oxycodone/Acetaminophen 1 tab 11/01/21 12:23 Oxycodone /Acetaminophen 5-325mg Tab PO Q6H PRN Pain, Moderate (4-6) Pantoprazole Sodium 40 mg 11/02/21 09:00 11/06/21 10:16 Pantoprazole 40 Mg Tab PO 40 mg BIDAC GABRIELLE Administration Sodium Chloride 10 ml 11/01/21 22:00 11/06/21 10:17 Sodium Chloride 0.9% 10 Ml Flush Syringe IV 10 ml BID GABRIELLE Administration Sodium Chloride 10 ml 11/01/21 12:23 Sodium Chloride 0.9% 10 Ml Flush Syringe IV PRN PRN LINE FLUSH Sodium Chloride 50 ml 11/03/21 18:00 11/05/21 16:40 Sodium Chloride 0.9% 50 Ml Ivpb IV 11/07/21 14:01 50 ml Q24HR@1400 GABRIELLE Administration Trazodone HCl 50 mg 11/02/21 22:00 11/05/21 22:07 Trazodone 50 Mg Tab PO 50 mg QHS GABRIELLE Administration Trimethoprim/Sulfamethoxazole 1 each 11/03/21 10:00 11/06/21 10:17 Sulfamethoxazole/Trimethoprim 800/160mg Ds Tab PO 1 each DAILY GABRIELLE Administration Protocol Nutrition/Malnutrition Assess - Dietary Evaluation Nutrition/Malnutrition Findings: Nutrition Notes Start: 11/02/21 14:18 Freq: Status: Active Protocol: Document 11/03/21 13:33 CM (Rec: 11/03/21 13:40 CM [id number]) Co-Sign 11/03/21 13:33 WW Nutrition Notes Initial or Follow up Brief Note Current Diagnosis COPD Other Pertinent Diagnosis Vascular dementia, cerebral atherosclerosis, ETOH dependence, HIV, Hep Current Diet Full Liquid Diet Labs/Tests 11/03: Na 135 Glu 71 Pertinent Medications 11/03: Folic Acid Height 5 ft 9 in Weight 48.5 kg [place] Body Weight (kg) 72.72 BMI 15.7 Weight Status Underweight Subjective/Other Information RD follow-up per protocol. Pt advanced to full liquid diet per . ROLL ON WORKER consult 11/01 - still pending. No diet % recorded per ADL notes. No GI symptoms reported per physical assessment. Percent of energy/protein needs met: Full Liquid Diet provides 1155kcal / 37g PRO q day. 68% Kcal / 64% AA before the addition of nutrition supplements. #1 Nutrition Diagnosis Malnutrition Diagnosis Progress(for reassessment Continues documentation) Is patient on ventilator? No Is Patient Ambulatory and/or Out of Bed No REE-([facility]-confined to bed) 1541.724 Kcal/Kg value to use for calculation 35 Approximate Energy Requirements Using 1698 kcal/Kg Calculation Used for Recommendations Kcal/kg Additional Notes 1.2-2.0g/kg ABW; 58-97g PRO q day Fluid Needs: 1mL/kcal Nutrition Intervention Change Diet Order: Pt to advance to regular diet with texture modifications per ROLL ON WORKER. Add Supplement/Snack (indicate name/kcal Ensure Enlive (Variety) TID /protein ) Provides kCal: 1,050 Provides Protein (gm) 60 Goal #1 Pt to consume >75% of estimated energy/protein needs through current diet order and nutrition supplements. Goal #2 Pt to maintain current wt status. Follow-Up By: 11/08/21 Additional Comments Monitor diet texture modification, wt status, %PO intake, and GI symptoms.
--- NOTE | 2021-11-06 14:40 | Vascular Lab Report ---
DUPLEX DOPPLER LOWER EXTREMITY VEINS, BILATERAL INDICATION / CLINICAL INFORMATION: EVALUATE FOR DVT. TECHNIQUE: Duplex doppler imaging was performed through the veins of both lower extremities using venous jenny andreea and other maneuvers. COMPARISON: None available. FINDINGS: RIGHT COMMON FEMORAL VEIN: Negative. RIGHT FEMORAL VEIN: Negative. RIGHT POPLITEAL VEIN: Negative. RIGHT CALF VEINS: Negative. LEFT COMMON FEMORAL VEIN: Negative. LEFT FEMORAL VEIN: Negative. LEFT POPLITEAL VEIN: Negative. LEFT CALF VEINS: Negative. ADDITIONAL FINDINGS: None. IMPRESSION: 1. No sonographic evidence for DVT in either lower extremity. Signer Name: Juan Yao MD Signed: 11/06/2021 2:36 PM Workstation Name: [email or web address]
--- NOTE | 2021-11-06 15:13 | Progress Note ---
Assessment and Plan Cultures: SARS CoV2 PCR: Positive A/P: 61-year-old male with dementia, prior CVA, alcohol dependence, HIV, noncompliant with antiretroviral therapy was initially admitted to the psychiatric unit for stabilization was noted to have decreased responsiveness during his hospitalization, underwent a chest x-ray and was found to have a pneumonia: #Bilateral pneumonia: Secondary to COVID-19. Also given noncompliant HIV, possibility of PJP also exists. Patient states he received 2 doses of the Pfizer vaccine, did not receive the booster. #HIV disease: Used to follow-up at [facility], says his last visit was about 6 months ago and he used to be on Biktarvy. Interested in restarting Biktarvy. #Oral thrush: On nystatin. Fluconazole added #Schizophrenia, mood disorder, anxiety #Alcohol abuse #Protein calorie malnutrition Recs: -No steroids for now since he is on room air -Completed Remdesivir. Remains on room air. -Antibiotics were stopped over the weekend due to normal procalcitonin. -monitor ferritin, d-dimer, CRP every 2-3 days -f/u LDH, CD4 count -Fungitell ordered -HIV RNA PCR ordered -Fluconazole 200 mg daily x 14 days -PO Bactrim DS 1 tab daily for prophylaxis till CD4 count is back -Resume follow up with [facility] upon discharge to restart ART -HIV specific labs can be followed up as an outpatient. No need to remain inpatient if still pending. -Would discharge him foot with 30 days of Bactrim DS 1 tab daily to allow him to reestablish care with [facility] ID will sign off. Please call with questions. Hilary Torres MD [facility] ([facility] O: [phone] F: [phone] Subjective Date of service: 11/06/21 Interval history: Afebrile, normal white count. Objective - Exam Narrative Exam: Physical Exam: Constitutional: Alert, cooperative. No acute distress. Cachexia Head, Ears, Nose: Normocephalic, atraumatic. External ears, nose normal Eyes: Conjunctivae/corneas clear. No icterus. No ptosis. Neck: Supple, no meningeal signs Oral: Poor dentition, oral thrush + Cardiovascular: S1, S2 + Respiratory: Good air entry, clear to auscultation bilaterally GI: Soft, non-tender; bowel sounds normal. No peritoneal signs Musculoskeletal: No pedal edema, no cyanosis. Cachexia Skin: No rash or abscess Hem/Lymphatic: No palpable cervical or supraclavicular nodes. Psych: Calm Neurological: Awake, alert, oriented. - Constitutional Vitals: Vital Signs Temp Pulse Resp BP Pulse Ox 98.2 F 63 20 131/78 95 11/06/21 05:45 11/06/21 05:45 11/06/21 08:00 11/06/21 05:45 11/06/21 08:00 Temperature -Last 24 Hours Temperature 98.2 F Temperature 97.8 F Temperature 97.9 F - Labs CBC & Chem 7: 11/02/21 05:58 11/05/21 06:53
[2021-11-06] MEDS: REMDESIVIR 100 MG in SODIUM CHLORIDE 0.9% 250ML 250 ML IV SCH (15:42)
[2021-11-06] MEDS: SODIUM CHLORIDE 0.9% 50 ML IVPB IV SCH (15:43)
[2021-11-06] MEDS: MIRTAZAPINE 15 MG TAB PO SCH (22:26)
[2021-11-06] MEDS: traZODone 50 MG TAB PO SCH (22:26)
[2021-11-07] MEDS: DEXAMETHASONE 4 MG TAB PO SCH (10:52)
[2021-11-07] MEDS: PANTOPRAZOLE 40 MG TAB PO SCH (10:52)
[2021-11-07] MEDS: FLUCONAZOLE 200 MG TAB PO SCH (10:52)
[2021-11-07] MEDS: NYSTATIN 500,000 UNIT/5 ML ORAL LIQD PO SCH ×3 (10:52→21:09)
[2021-11-07] MEDS: SULFAMETHOXAZOLE/TRIMETHOPRIM 800/160MG DS TAB PO SCH (10:53)
[2021-11-07] MEDS: DIVALPROEX DR 125 MG TAB PO SCH ×3 (10:53→21:09)
[2021-11-07] MEDS: ESCITALOPRAM 10 MG TAB PO SCH (10:53)
[2021-11-07] MEDS: FOLIC ACID 1 MG TAB PO SCH (10:53)
[2021-11-07] MEDS: ARIPiprazole 5 MG TAB PO SCH (10:53)
--- NOTE | 2021-11-07 12:17 | Progress Note ---
Assessment and Plan Assessment and plan: #Acute hypoxic respiratory failureresolved #Pneumonia-viral versus bacterial cause #Asymptomatic COVID-19 infection #Chronic emphysema -CXR reviewed, CTA chest unremarkable for pulmonary embolism. -COVID PCR positive. Remdesivir has been completed. -Patient noted to have oxygen saturation as low as 89% continue remdesivir -Completed Rocephin and azithromycin. Patient will complete fluconazole 200 mg daily x14 days, Bactrim DS 1 tab daily (and will be discharged with 30-day supply). -D-dimer, LDH and ferritin elevated; procalcitonin 0.32 -Discontinued dexamethasone as the patient is currently on room air. -Infectious disease following, appreciate recs. #Acute metabolic encephalopathy-resolved -CT head negative -likely due to illness #HIV disease -Not currently taking antiretroviral drugs -CD4 count, PCR ordered -continue bactrim ppx -Follow-up with ID outpatient #Oral candidiasis-improving -Nystatin swish and swallow 4 times daily + fluconazole #Schizophrenia #Unspecified mood disorder #Anxiety depression -continue lexapro and depakote -Psychiatry following, assistance appreciated #Alcohol abuse #Alcoholic withdrawals - continue librium taper - behavioral health counseling administered which included education on benefits of alcohol cessation as well as options for quitting. +15 min #Tobacco dependence #Smoking cessation counseling -Patient has history of smoking up to 1 pack of cigarettes daily along with crack cocaine abuse in the past -Smoking cessation counseling, supportive care, behavior change counseling, +15 minutes. #moderate protein calorie malnutrition -albumin 2.6 -likely secondary to ETOH abuse. Continue dietary supplementation. #Fall -Patient reports fall last night while ambulating to the bathroom and hit the back of his neck -X-ray of C-spine negative -PT evaluation recommending subacute rehab. Pending placement. #Advance care planning -Disease education conducted, care plan discussed, diagnoses discussed, prognosis discussed, patient is full code, patient acknowledges understanding and agree with care plan, +30 minutes. #Discharge planning - Patient is pending placementPT recommended subacute rehab. - Case management has been made aware. Disposition Plan: Pending placement Total Time Spent with Patient (Minutes): 45 minutes History Interval history: No acute events overnight. Hospitalist Physical - Constitutional Vitals: Temp Pulse Resp BP Pulse Ox 97.7 F 52 L 18 147/88 97 11/07/21 05:09 11/07/21 05:09 11/07/21 05:09 11/07/21 05:09 11/07/21 05:09 General appearance: Present: mild distress, cachectic - EENT Eyes: Present: PERRL, EOM intact ENT: hearing intact, clear oral mucosa, poor dentition, edentulous - Neck Neck: Present: supple, normal ROM - Respiratory Respiratory effort: normal Respiratory: bilateral: diminished - Cardiovascular Rhythm: regular Heart Sounds: Present: S1 & S2 - Extremities Extremities: no ischemia, pulses intact, pulses symmetrical, No edema, normal temperature, normal color Peripheral Pulses: within normal limits - Abdominal General gastrointestinal: soft, non-tender, non-distended, normal bowel sounds - Integumentary Integumentary: Present: clear, warm, dry - Psychiatric Psychiatric: appropriate mood/affect, intact judgment & insight, memory intact - Neurologic Neurologic: CNII-XII intact - Allied Health Allied health notes reviewed: nursing, social work, case management Results - Labs CBC & Chem 7: 11/02/21 05:58 11/05/21 06:53 Labs: Laboratory Last Values WBC 10.6 K/mm3 (4.5-11.0) 11/02/21 05:58 RBC 4.37 M/mm3 (3.65-5.03) 11/02/21 05:58 Hgb 13.1 gm/dl (11.8-15.2) 11/02/21 05:58 Hct 40.0 % (35.5-45.6) 11/02/21 05:58 MCV 92 fl (84-94) 11/02/21 05:58 MCH 30 pg (28-32) 11/02/21 05:58 MCHC 33 % (32-34) 11/02/21 05:58 RDW 14.2 % (13.2-15.2) 11/02/21 05:58 Plt Count 286 K/mm3 (140-440) 11/02/21 05:58 [place] % (Auto) Paint Roller Cover Machine Setter 11/02/21 05:58 Add Manual Diff Complete 11/02/21 05:58 Total Counted 100 11/02/21 05:58 Seg Neutrophils % Paint Roller Cover Machine Setter 11/02/21 05:58 Seg Neuts % (Manual) 88.0 % (40.0-70.0) H 11/02/21 05:58 Band Neutrophils % 2.0 % 11/02/21 05:58 Lymphocytes % (Manual) 2.0 % (13.4-35.0) L 11/02/21 05:58 Reactive Lymphs % (Man) 0 % 11/02/21 05:58 Monocytes % (Manual) 6.0 % (0.0-7.3) 11/02/21 05:58 Eosinophils % (Manual) 1.0 % (0.0-4.3) 11/02/21 05:58 Basophils % (Manual) 0 % (0.0-1.8) 11/02/21 05:58 Metamyelocytes % 1.0 % 11/02/21 05:58 Myelocytes % 0 % 11/02/21 05:58 Promyelocytes % 0 % 11/02/21 05:58 Blast Cells % 0 % 11/02/21 05:58 Nucleated RBC % Not Reportable 11/02/21 05:58 Seg Neutrophils # Man 9.3 K/mm3 (1.8-7.7) H 11/02/21 05:58 Band Neutrophils # 0.2 K/mm3 11/02/21 05:58 Lymphocytes # (Manual) 0.2 K/mm3 (1.2-5.4) L 11/02/21 05:58 Abs React Lymphs (Man) 0.0 K/mm3 11/02/21 05:58 Monocytes # (Manual) 0.6 K/mm3 (0.0-0.8) 11/02/21 05:58 Eosinophils # (Manual) 0.1 K/mm3 (0.0-0.4) 11/02/21 05:58 Basophils # (Manual) 0.0 K/mm3 (0.0-0.1) 11/02/21 05:58 Metamyelocytes # 0.1 K/mm3 11/02/21 05:58 Myelocytes # 0.0 K/mm3 11/02/21 05:58 Promyelocytes # 0.0 K/mm3 11/02/21 05:58 Blast Cells # 0.0 K/mm3 11/02/21 05:58 WBC Morphology Not Reportable 11/02/21 05:58 Hypersegmented Neuts Rare 11/02/21 05:58 Hyposegmented Neuts Not Reportable 11/02/21 05:58 Hypogranular Neuts Not Reportable 11/02/21 05:58 Smudge Cells Not Reportable 11/02/21 05:58 Toxic Granulation Not Reportable 11/02/21 05:58 Toxic Vacuolation Not Reportable 11/02/21 05:58 Dohle Bodies Not Reportable 11/02/21 05:58 Pelger-Huet Anomaly Not Reportable 11/02/21 05:58 Mu Rods Not Reportable 11/02/21 05:58 Platelet Estimate Consistent w auto 11/02/21 05:58 Clumped Platelets Not Reportable 11/02/21 05:58 Plt Clumps, EDTA Not Reportable 11/02/21 05:58 Large Platelets Not Reportable 11/02/21 05:58 Giant Platelets Not Reportable 11/02/21 05:58 Platelet Satelliting Not Reportable 11/02/21 05:58 Plt Morphology Comment Not Reportable 11/02/21 05:58 RBC Morphology Not Reportable 11/02/21 05:58 Dimorphic RBCs Not Reportable 11/02/21 05:58 Polychromasia Not Reportable 11/02/21 05:58 Hypochromasia Not Reportable 11/02/21 05:58 Poikilocytosis Not Reportable 11/02/21 05:58 Anisocytosis 1+ 11/02/21 05:58 Microcytosis Not Reportable 11/02/21 05:58 Macrocytosis Not Reportable 11/02/21 05:58 Spherocytes Not Reportable 11/02/21 05:58 Pappenheimer Bodies Not Reportable 11/02/21 05:58 Sickle Cells Not Reportable 11/02/21 05:58 Target Cells Not Reportable 11/02/21 05:58 Tear Drop Cells Not Reportable 11/02/21 05:58 Ovalocytes Not Reportable 11/02/21 05:58 Helmet Cells Not Reportable 11/02/21 05:58 [place] Bodies Not Reportable 11/02/21 05:58 [place] Rings Not Reportable 11/02/21 05:58 Jose Roberto Cells Not Reportable 11/02/21 05:58 Bite Cells Not Reportable 11/02/21 05:58 Crenated Cell Not Reportable 11/02/21 05:58 Elliptocytes Not Reportable 11/02/21 05:58 Acanthocytes (Spur) Not Reportable 11/02/21 05:58 Rouleaux Not Reportable 11/02/21 05:58 Hemoglobin C Crystals Not Reportable 11/02/21 05:58 Schistocytes Not Reportable 11/02/21 05:58 Malaria parasites Not Reportable 11/02/21 05:58 [place] Bodies Not Reportable 11/02/21 05:58 Hem Pathologist Commnt No 11/02/21 05:58 D-Dimer 1199.73 ng/mlDDU (0-234) H 11/03/21 16:14 Sodium 139 mmol/L (137-145) 11/05/21 06:53 Potassium 5.2 mmol/L (3.6-5.0) H D 11/05/21 06:53 Chloride 105.4 mmol/L (98-107) 11/05/21 06:53 Carbon Dioxide 23 mmol/L (22-30) 11/05/21 06:53 Anion Gap 16 mmol/L 11/05/21 06:53 BUN 11 mg/dL (9-20) 11/05/21 06:53 Creatinine 0.7 mg/dL (0.8-1.3) L 11/05/21 06:53 Estimated GFR > 60 ml/min 11/05/21 06:53 BUN/Creatinine Ratio 16 % 11/05/21 06:53 Glucose 75 mg/dL (75-100) 11/05/21 06:53 Calcium 8.3 mg/dL (8.4-10.2) L 11/05/21 06:53 Ferritin 1056.0 ng/mL (30.0-300.0) H 11/03/21 16:14 Total Bilirubin 0.20 mg/dL (0.1-1.2) 11/05/21 06:53 AST 61 units/L (5-40) H 11/05/21 06:53 ALT 47 units/L (7-56) 11/05/21 06:53 Alkaline Phosphatase 80 units/L (35-129) 11/05/21 06:53 Lactate Dehydrogenase 331 units/L (91-180) H 11/03/21 16:14 C-Reactive Protein 12.20 mg/dL (0.00-1.30) H 11/03/21 16:14 Total Protein 7.0 g/dL (6.3-8.2) 11/05/21 06:53 Albumin 2.3 g/dL (3.9-5) L 11/05/21 06:53 Albumin/Globulin Ratio 0.5 % 11/05/21 06:53 Procalcitonin 0.32 ng/mL (<0.15) 11/03/21 16:14 Coronavirus (PCR) Positive (Negative) A 11/02/21 09:50 [place]/IV: Voiding Method Condom Catheter Active Medications - Current Medications Current Medications: Generic Name Dose Route Start Last Admin Trade Name Freq PRN Reason Stop Dose Admin Acetaminophen 650 mg 11/02/21 08:39 Acetaminophen 325 Mg Tab PO Q4H PRN Pain MILD(1-3)/Fever >100.5/ROSARIO Albuterol 2.5 mg 11/01/21 12:23 Albuterol 2.5 Mg/3 Ml Nebu IH Q4HRT PRN Shortness Of Breath Aripiprazole 5 mg 11/02/21 10:00 11/07/21 10:53 Aripiprazole 5 Mg Tab PO 5 mg QDAY GABRIELLE Administration Dexamethasone 6 mg 11/04/21 10:00 11/07/21 10:52 Dexamethasone 4 Mg Tab PO 6 mg QDAY GABRIELLE Administration Divalproex Sodium 125 mg 11/02/21 14:00 11/07/21 10:[address] 125 Mg Tab PO 125 mg TID GABRIELLE Administration Escitalopram Oxalate 20 mg 11/02/21 10:00 11/07/21 10:53 Escitalopram 10 Mg Tab PO 20 mg QDAY GABRIELLE Administration Fluconazole 200 mg 11/03/21 10:00 11/07/21 10:52 Fluconazole 200 Mg Tab PO 11/16/21 10:01 200 mg QDAY GABRIELLE Administration Protocol Folic Acid 1 mg 11/02/21 10:00 11/07/21 10:53 Folic Acid 1 Mg Tab PO 1 mg QDAY GABRIELLE Administration Guaifenesin 200 mg 11/03/21 15:50 11/03/21 17:55 Guaifenesin 200 Mg Tab PO 200 mg Q6H PRN Administration Cough Hydromorphone HCl 0.5 mg 11/01/21 12:23 Hydromorphone 0.5 Mg/0.5 Ml Inj IV Q13H PRN Pain , Severe (7-10) Melatonin 5 mg 11/02/21 21:00 Melatonin 5 Mg Tab PO QHS PRN Sleep Melatonin 5 mg 11/05/21 22:00 11/06/21 22:27 Melatonin 5 Mg Tab PO 5 mg QHS GABRIELLE Administration Mirtazapine 7.5 mg 11/02/21 22:00 11/06/21 22:26 Mirtazapine 15 Mg Tab PO 7.5 mg QHS GABRIELLE Administration Nystatin 500,000 unit 11/02/21 14:00 11/07/21 10:52 Nystatin 500,000 Unit/5 Ml Oral Liqd PO 500,000 unit QID GABRIELLE Administration Ondansetron HCl 4 mg 11/01/21 12:23 Ondansetron 4 Mg/2 Ml Inj IV Q8H PRN Nausea And Vomiting Oxycodone/Acetaminophen 1 tab 11/01/21 12:23 Oxycodone /Acetaminophen 5-325mg Tab PO Q6H PRN Pain, Moderate (4-6) Pantoprazole Sodium 40 mg 11/02/21 09:00 11/07/21 10:52 Pantoprazole 40 Mg Tab PO 40 mg BIDAC GABRIELLE Administration Sodium Chloride 10 ml 11/01/21 22:00 11/07/21 10:54 Sodium Chloride 0.9% 10 Ml Flush Syringe IV 10 ml BID GABRIELLE Administration Sodium Chloride 10 ml 11/01/21 12:23 Sodium Chloride 0.9% 10 Ml Flush Syringe IV PRN PRN LINE FLUSH Sodium Chloride 50 ml 11/03/21 18:00 11/06/21 15:43 Sodium Chloride 0.9% 50 Ml Ivpb IV 11/07/21 14:01 50 ml Q24HR@1400 GABRIELLE Administration Trazodone HCl 50 mg 11/02/21 22:00 11/06/21 22:26 Trazodone 50 Mg Tab PO 50 mg QHS GABRIELLE Administration Trimethoprim/Sulfamethoxazole 1 each 11/03/21 10:00 11/07/21 10:53 Sulfamethoxazole/Trimethoprim 800/160mg Ds Tab PO 1 each DAILY GABRIELLE Administration Protocol Nutrition/Malnutrition Assess - Dietary Evaluation Nutrition/Malnutrition Findings: Nutrition Notes Start: 11/02/21 14:18 Freq: Status: Active Protocol: Document 11/03/21 13:33 CM (Rec: 11/03/21 13:40 CM [email or web address]) Co-Sign 11/03/21 13:33 WW Nutrition Notes Initial or Follow up Brief Note Current Diagnosis COPD Other Pertinent Diagnosis Vascular dementia, cerebral atherosclerosis, ETOH dependence, HIV, Hep Current Diet Full Liquid Diet Labs/Tests 11/03: Na 135 Glu 71 Pertinent Medications 11/03: Folic Acid Height 5 ft 9 in Weight 48.5 kg [place] Body Weight (kg) 72.72 BMI 15.7 Weight Status Underweight Subjective/Other Information RD follow-up per protocol. Pt advanced to full liquid diet per MD. STONE FINISHER consult 11/01 - still pending. No diet % recorded per ADL notes. No GI symptoms reported per physical assessment. Percent of energy/protein needs met: Full Liquid Diet provides 1155kcal / 37g PRO q day. 68% Kcal / 64% AA before the addition of nutrition supplements. #1 Nutrition Diagnosis Malnutrition Diagnosis Progress(for reassessment Continues documentation) Is patient on ventilator? No Is Patient Ambulatory and/or Out of Bed No REE-([place]-St. Jeor-confined to bed) 1541.724 Kcal/Kg value to use for calculation 35 Approximate Energy Requirements Using 1698 kcal/Kg Calculation Used for Recommendations Kcal/kg Additional Notes 1.2-2.0g/kg ABW; 58-97g PRO q day Fluid Needs: 1mL/kcal Nutrition Intervention Change Diet Order: Pt to advance to regular diet with texture modifications per [employer] FINISHER. Add Supplement/Snack (indicate name/kcal Ensure Enlive (Variety) TID /protein ) Provides kCal: 1,050 Provides Protein (gm) 60 Goal #1 Pt to consume >75% of estimated energy/protein needs through current diet order and nutrition supplements. Goal #2 Pt to maintain current wt status. Follow-Up By: 11/08/21 Additional Comments Monitor diet texture modification, wt status, %PO intake, and GI symptoms.
[2021-11-07 14:41] LABS: CD4/CD8 Ratio 0.08 (0.86-5.00)
[2021-11-07] MEDS: SODIUM CHLORIDE 0.9% 50 ML IVPB IV SCH (15:46)
[2021-11-07 19:30] LABS: HIV-1 RNA QN PCR 4.5 Log cps/mL
[2021-11-07] MEDS: traZODone 50 MG TAB PO SCH (21:08)
[2021-11-07] MEDS: MELATONIN 5 MG TAB PO SCH (21:09)
[2021-11-07] MEDS: MIRTAZAPINE 15 MG TAB PO SCH (21:09)
[2021-11-08] MEDS: PANTOPRAZOLE 40 MG TAB PO SCH ×3 (01:09→17:48)
[2021-11-08] MEDS: NYSTATIN 500,000 UNIT/5 ML ORAL LIQD PO SCH ×6 (01:09→21:29)
[2021-11-08] MEDS: SULFAMETHOXAZOLE/TRIMETHOPRIM 800/160MG DS TAB PO SCH (11:23)
[2021-11-08] MEDS: FOLIC ACID 1 MG TAB PO SCH (11:23)
[2021-11-08] MEDS: ESCITALOPRAM 10 MG TAB PO SCH (11:23)
[2021-11-08] MEDS: ARIPiprazole 5 MG TAB PO SCH (11:24)
[2021-11-08] MEDS: FLUCONAZOLE 200 MG TAB PO SCH (11:29)
[2021-11-08] MEDS: DIVALPROEX DR 125 MG TAB PO SCH ×3 (11:29→21:29)
--- NOTE | 2021-11-08 11:36 | Progress Note ---
Assessment and Plan Assessment and plan: #Acute hypoxic respiratory failureresolved #Pneumonia-viral versus bacterial cause #Asymptomatic COVID-19 infection #Chronic emphysema -CXR reviewed, CTA chest unremarkable for pulmonary embolism. -COVID PCR positive. Remdesivir has been completed. -Patient noted to have oxygen saturation as low as 89% continue remdesivir -Completed Rocephin and azithromycin. Patient will complete fluconazole 200 mg daily x14 days, Bactrim DS 1 tab daily (and will be discharged with 30-day supply). -D-dimer, LDH and ferritin elevated; procalcitonin 0.32 -Discontinued dexamethasone as the patient is currently on room air. -Infectious disease following, appreciate recs. #Acute metabolic encephalopathy-resolved -CT head negative -likely due to illness #HIV disease -Not currently taking antiretroviral drugs -CD4 count, PCR ordered -continue bactrim ppx -Follow-up with ID outpatient #Oral candidiasis-improving -Nystatin swish and swallow 4 times daily + fluconazole #Schizophrenia #Unspecified mood disorder #Anxiety depression -continue lexapro and depakote -Psychiatry following, assistance appreciated #Alcohol abuse #Alcoholic withdrawals - continue librium taper - behavioral health counseling administered which included education on benefits of alcohol cessation as well as options for quitting. +15 min #Tobacco dependence #Smoking cessation counseling -Patient has history of smoking up to 1 pack of cigarettes daily along with crack cocaine abuse in the past -Smoking cessation counseling, supportive care, behavior change counseling, +15 minutes. #moderate protein calorie malnutrition -albumin 2.6 -likely secondary to ETOH abuse. Continue dietary supplementation. #Fall -Patient reports fall last night while ambulating to the bathroom and hit the back of his neck -X-ray of C-spine negative -PT evaluation recommending subacute rehab. Pending placement. #Advance care planning -Disease education conducted, care plan discussed, diagnoses discussed, prognosis discussed, patient is full code, patient acknowledges understanding and agree with care plan, +30 minutes. #Discharge planning - Patient is pending placementPT recommended subacute rehab. - Case management has been made aware. Disposition Plan: Pending placement Total Time Spent with Patient (Minutes): 30 minutes History Interval history: No acute events overnight. Hospitalist Physical - Constitutional Vitals: Temp Pulse Resp BP Pulse Ox 98.6 F 61 18 144/93 95 11/07/21 16:38 11/07/21 21:10 11/07/21 16:38 11/07/21 21:09 11/07/21 21:10 General appearance: Present: mild distress, cachectic - EENT Eyes: Present: PERRL, EOM intact ENT: hearing intact, clear oral mucosa - Neck Neck: Present: supple, normal ROM - Respiratory Respiratory effort: normal Respiratory: bilateral: diminished - Cardiovascular Rhythm: regular Heart Sounds: Present: S1 & S2 - Extremities Extremities: no ischemia, pulses intact, pulses symmetrical, No edema, normal temperature, normal color Peripheral Pulses: within normal limits - Abdominal General gastrointestinal: soft, non-tender, non-distended, normal bowel sounds - Integumentary Integumentary: Present: clear, warm, dry - Psychiatric Psychiatric: appropriate mood/affect, intact judgment & insight, cooperative - Neurologic Neurologic: CNII-XII intact - Allied Health Allied health notes reviewed: nursing, social work Results - Labs CBC & Chem 7: 11/02/21 05:58 11/05/21 06:53 Labs: Laboratory Last Values WBC 10.6 K/mm3 (4.5-11.0) 11/02/21 05:58 RBC 4.37 M/mm3 (3.65-5.03) 11/02/21 05:58 Hgb 13.1 gm/dl (11.8-15.2) 11/02/21 05:58 Hct 40.0 % (35.5-45.6) 11/02/21 05:58 MCV 92 fl (84-94) 11/02/21 05:58 MCH 30 pg (28-32) 11/02/21 05:58 MCHC 33 % (32-34) 11/02/21 05:58 RDW 14.2 % (13.2-15.2) 11/02/21 05:58 Plt Count 286 K/mm3 (140-440) 11/02/21 05:58 Maverick % (Auto) Access Rep 11/02/21 05:58 Add Manual Diff Complete 11/02/21 05:58 Total Counted 100 11/02/21 05:58 Seg Neutrophils % Access Rep 11/02/21 05:58 Seg Neuts % (Manual) 88.0 % (40.0-70.0) H 11/02/21 05:58 Band Neutrophils % 2.0 % 11/02/21 05:58 Lymphocytes % (Manual) 2.0 % (13.4-35.0) L 11/02/21 05:58 Reactive Lymphs % (Man) 0 % 11/02/21 05:58 Monocytes % (Manual) 6.0 % (0.0-7.3) 11/02/21 05:58 Eosinophils % (Manual) 1.0 % (0.0-4.3) 11/02/21 05:58 Basophils % (Manual) 0 % (0.0-1.8) 11/02/21 05:58 Metamyelocytes % 1.0 % 11/02/21 05:58 Myelocytes % 0 % 11/02/21 05:58 Promyelocytes % 0 % 11/02/21 05:58 Blast Cells % 0 % 11/02/21 05:58 Nucleated RBC % Not Reportable 11/02/21 05:58 Seg Neutrophils # Man 9.3 K/mm3 (1.8-7.7) H 11/02/21 05:58 Band Neutrophils # 0.2 K/mm3 11/02/21 05:58 Abs Lymphs (Manual) 863 cells/uL (850-3900) 11/01/21 23:58 Lymphocytes # (Manual) 0.2 K/mm3 (1.2-5.4) L 11/02/21 05:58 Abs React Lymphs (Man) 0.0 K/mm3 11/02/21 05:58 Monocytes # (Manual) 0.6 K/mm3 (0.0-0.8) 11/02/21 05:58 Eosinophils # (Manual) 0.1 K/mm3 (0.0-0.4) 11/02/21 05:58 Basophils # (Manual) 0.0 K/mm3 (0.0-0.1) 11/02/21 05:58 Metamyelocytes # 0.1 K/mm3 11/02/21 05:58 Myelocytes # 0.0 K/mm3 11/02/21 05:58 Promyelocytes # 0.0 K/mm3 11/02/21 05:58 Blast Cells # 0.0 K/mm3 11/02/21 05:58 WBC Morphology Not Reportable 11/02/21 05:58 Hypersegmented Neuts Rare 11/02/21 05:58 Hyposegmented Neuts Not Reportable 11/02/21 05:58 Hypogranular Neuts Not Reportable 11/02/21 05:58 Smudge Cells Not Reportable 11/02/21 05:58 Toxic Granulation Not Reportable 11/02/21 05:58 Toxic Vacuolation Not Reportable 11/02/21 05:58 Dohle Bodies Not Reportable 11/02/21 05:58 Pelger-Huet Anomaly Not Reportable 11/02/21 05:58 Mu Rods Not Reportable 11/02/21 05:58 Platelet Estimate Consistent w auto 11/02/21 05:58 Clumped Platelets Not Reportable 11/02/21 05:58 Plt Clumps, EDTA Not Reportable 11/02/21 05:58 Large Platelets Not Reportable 11/02/21 05:58 Giant Platelets Not Reportable 11/02/21 05:58 Platelet Satelliting Not Reportable 11/02/21 05:58 Plt Morphology Comment Not Reportable 11/02/21 05:58 RBC Morphology Not Reportable 11/02/21 05:58 Dimorphic RBCs Not Reportable 11/02/21 05:58 Polychromasia Not Reportable 11/02/21 05:58 Hypochromasia Not Reportable 11/02/21 05:58 Poikilocytosis Not Reportable 11/02/21 05:58 Anisocytosis 1+ 11/02/21 05:58 Microcytosis Not Reportable 11/02/21 05:58 Macrocytosis Not Reportable 11/02/21 05:58 Spherocytes Not Reportable 11/02/21 05:58 Pappenheimer Bodies Not Reportable 11/02/21 05:58 Sickle Cells Not Reportable 11/02/21 05:58 Target Cells Not Reportable 11/02/21 05:58 Tear Drop Cells Not Reportable 11/02/21 05:58 Ovalocytes Not Reportable 11/02/21 05:58 Helmet Cells Not Reportable 11/02/21 05:58 [place] Bodies Not Reportable 11/02/21 05:58 [place] Rings Not Reportable 11/02/21 05:58 Jose Roberto Cells Not Reportable 11/02/21 05:58 Bite Cells Not Reportable 11/02/21 05:58 Crenated Cell Not Reportable 11/02/21 05:58 Elliptocytes Not Reportable 11/02/21 05:58 Acanthocytes (Spur) Not Reportable 11/02/21 05:58 Rouleaux Not Reportable 11/02/21 05:58 Hemoglobin C Crystals Not Reportable 11/02/21 05:58 Schistocytes Not Reportable 11/02/21 05:58 Malaria parasites Not Reportable 11/02/21 05:58 [place] Bodies Not Reportable 11/02/21 05:58 Hem Pathologist Commnt No 11/02/21 05:58 D-Dimer 1199.73 ng/mlDDU (0-234) H 11/03/21 16:14 Sodium 139 mmol/L (137-145) 11/05/21 06:53 Potassium 5.2 mmol/L (3.6-5.0) H D 11/05/21 06:53 Chloride 105.4 mmol/L (98-107) 11/05/21 06:53 Carbon Dioxide 23 mmol/L (22-30) 11/05/21 06:53 Anion Gap 16 mmol/L 11/05/21 06:53 BUN 11 mg/dL (9-20) 11/05/21 06:53 Creatinine 0.7 mg/dL (0.8-1.3) L 11/05/21 06:53 Estimated GFR > 60 ml/min 11/05/21 06:53 BUN/Creatinine Ratio 16 % 11/05/21 06:53 Glucose 75 mg/dL (75-100) 11/05/21 06:53 Calcium 8.3 mg/dL (8.4-10.2) L 11/05/21 06:53 Ferritin 1056.0 ng/mL (30.0-300.0) H 11/03/21 16:14 Total Bilirubin 0.20 mg/dL (0.1-1.2) 11/05/21 06:53 AST 61 units/L (5-40) H 11/05/21 06:53 ALT 47 units/L (7-56) 11/05/21 06:53 Alkaline Phosphatase 80 units/L (35-129) 11/05/21 06:53 Lactate Dehydrogenase 331 units/L (91-180) H 11/03/21 16:14 C-Reactive Protein 12.20 mg/dL (0.00-1.30) H 11/03/21 16:14 Total Protein 7.0 g/dL (6.3-8.2) 11/05/21 06:53 Albumin 2.3 g/dL (3.9-5) L 11/05/21 06:53 Albumin/Globulin Ratio 0.5 % 11/05/21 06:53 Procalcitonin 0.32 ng/mL (<0.15) 11/03/21 16:14 Lymph Enumerat CD4/CD8 0.08 (0.86-5.00) L 11/01/21 23:58 % CD3 Cells 32 % (57-85) L 11/01/21 23:58 Absolute CD3 Count 273 cells/uL (840-3060) L 11/01/21 23:58 % CD4 Cells 2 % (30-61) L 11/01/21 23:58 Absolute CD4 Count 22 cells/uL (490-1740) L 11/01/21 23:58 % CD8 Cells 29 % (12-42) 11/01/21 23:58 Absolute CD8 Count 266 cells/uL (180-1170) 11/01/21 23:58 % CD19 Cells 3 % (6-29) L 11/01/21 23:58 Absolute CD19 Count 22 cells/uL (110-660) L 11/01/21 23:58 Coronavirus (PCR) Positive (Negative) A 11/02/21 09:50 HIV-1 RNA PCR copies/ml 43353 Copies/mL H 11/03/21 16:14 HIV-1 RNA (PCR) log 4.50 Log cps/mL H 11/03/21 16:14 Miscellaneous Test Flexitest 1 H 11/03/21 Unknown Clancy/IV: Voiding Method Urinal Active Medications - Current Medications Current Medications: Generic Name Dose Route Start Last Admin Trade Name Freq PRN Reason Stop Dose Admin Acetaminophen 650 mg 11/02/21 08:39 Acetaminophen 325 Mg Tab PO Q4H PRN Pain MILD(1-3)/Fever >100.5/ROSARIO Albuterol 2.5 mg 11/01/21 12:23 Albuterol 2.5 Mg/3 Ml Nebu IH Q4HRT PRN Shortness Of Breath Aripiprazole 5 mg 11/02/21 10:00 11/08/21 11:24 Aripiprazole 5 Mg Tab PO 5 mg QDAY GABRIELLE Administration Divalproex Sodium 125 mg 11/02/21 14:00 11/08/21 11:[address] 125 Mg Tab PO 125 mg TID GABRIELLE Administration Escitalopram Oxalate 20 mg 11/02/21 10:00 11/08/21 11:23 Escitalopram 10 Mg Tab PO 20 mg QDAY GABRIELLE Administration Fluconazole 200 mg 11/03/21 10:00 11/08/21 11:29 Fluconazole 200 Mg Tab PO 11/16/21 10:01 200 mg QDAY GABRIELLE Administration Protocol Folic Acid 1 mg 11/02/21 10:00 11/08/21 11:23 Folic Acid 1 Mg Tab PO 1 mg QDAY GABRIELLE Administration Guaifenesin 200 mg 11/03/21 15:50 11/03/21 17:55 Guaifenesin 200 Mg Tab PO 200 mg Q6H PRN Administration Cough Hydromorphone HCl 0.5 mg 11/01/21 12:23 Hydromorphone 0.5 Mg/0.5 Ml Inj IV Q13H PRN Pain , Severe (7-10) Melatonin 5 mg 11/02/21 21:00 Melatonin 5 Mg Tab PO QHS PRN Sleep Melatonin 5 mg 11/05/21 22:00 11/07/21 21:09 Melatonin 5 Mg Tab PO 5 mg QHS GABRIELLE Administration Mirtazapine 7.5 mg 11/02/21 22:00 11/07/21 21:09 Mirtazapine 15 Mg Tab PO 7.5 mg QHS GABRIELLE Administration Nystatin 500,000 unit 11/02/21 14:00 11/08/21 11:29 Nystatin 500,000 Unit/5 Ml Oral Liqd PO 500,000 unit QID GABRIELLE Administration Ondansetron HCl 4 mg 11/01/21 12:23 Ondansetron 4 Mg/2 Ml Inj IV Q8H PRN Nausea And Vomiting Oxycodone/Acetaminophen 1 tab 11/01/21 12:23 Oxycodone /Acetaminophen 5-325mg Tab PO Q6H PRN Pain, Moderate (4-6) Pantoprazole Sodium 40 mg 11/02/21 09:00 11/08/21 11:29 Pantoprazole 40 Mg Tab PO 40 mg BIDAC GABRIELLE Administration Sodium Chloride 10 ml 11/01/21 22:00 11/07/21 21:09 Sodium Chloride 0.9% 10 Ml Flush Syringe IV 10 ml BID GABRIELLE Administration Sodium Chloride 10 ml 11/01/21 12:23 Sodium Chloride 0.9% 10 Ml Flush Syringe IV PRN PRN LINE FLUSH Trazodone HCl 50 mg 11/02/21 22:00 11/07/21 21:08 Trazodone 50 Mg Tab PO 50 mg QHS GABRIELLE Administration Trimethoprim/Sulfamethoxazole 1 each 11/03/21 10:00 11/08/21 11:23 Sulfamethoxazole/Trimethoprim 800/160mg Ds Tab PO 1 each DAILY GABRIELLE Administration Protocol Nutrition/Malnutrition Assess - Dietary Evaluation Nutrition/Malnutrition Findings: Nutrition Notes Start: 11/02/21 14:18 Freq: Status: Active Protocol: Document 11/03/21 13:33 CM (Rec: 11/03/21 13:40 CM [email or web address]) Co-Sign 11/03/21 13:33 WW Nutrition Notes Initial or Follow up Brief Note Current Diagnosis COPD Other Pertinent Diagnosis Vascular dementia, cerebral atherosclerosis, ETOH dependence, HIV, Hep Current Diet Full Liquid Diet Labs/Tests 11/03: Na 135 Glu 71 Pertinent Medications 11/03: Folic Acid Height 5 ft 9 in Weight 48.5 kg [place] Body Weight (kg) 72.72 BMI 15.7 Weight Status Underweight Subjective/Other Information RD follow-up per protocol. Pt advanced to full liquid diet per MD. CANNING MACHINE OPERATOR consult 11/01 - still pending. No diet % recorded per ADL notes. No GI symptoms reported per physical assessment. Percent of energy/protein needs met: Full Liquid Diet provides 1155kcal / 37g PRO q day. 68% Kcal / 64% AA before the addition of nutrition supplements. #1 Nutrition Diagnosis Malnutrition Diagnosis Progress(for reassessment Continues documentation) Is patient on ventilator? No Is Patient Ambulatory and/or Out of Bed No REE-([facility]-confined to bed) 1541.724 Kcal/Kg value to use for calculation 35 Approximate Energy Requirements Using 1698 kcal/Kg Calculation Used for Recommendations Kcal/kg Additional Notes 1.2-2.0g/kg ABW; 58-97g PRO q day Fluid Needs: 1mL/kcal Nutrition Intervention Change Diet Order: Pt to advance to regular diet with texture modifications per CANNING MACHINE OPERATOR. Add Supplement/Snack (indicate name/kcal Ensure Enlive (Variety) TID /protein ) Provides kCal: 1,050 Provides Protein (gm) 60 Goal #1 Pt to consume >75% of estimated energy/protein needs through current diet order and nutrition supplements. Goal #2 Pt to maintain current wt status. Follow-Up By: 11/08/21 Additional Comments Monitor diet texture modification, wt status, %PO intake, and GI symptoms.
[2021-11-08] MEDS: traZODone 50 MG TAB PO SCH (21:29)
[2021-11-08] MEDS: MIRTAZAPINE 15 MG TAB PO SCH (21:29)
[2021-11-08] MEDS: MELATONIN 5 MG TAB PO SCH (21:29)
[2021-11-09] MEDS: PANTOPRAZOLE 40 MG TAB PO SCH (08:07)
[2021-11-09] MEDS: DIVALPROEX DR 125 MG TAB PO SCH ×2 (08:07→14:48)
--- NOTE | 2021-11-09 14:26 | Progress Note ---
Assessment and Plan Assessment and plan: #Acute hypoxic respiratory failureresolved #Pneumonia-viral versus bacterial cause #Asymptomatic COVID-19 infection #Chronic emphysema -CXR reviewed, CTA chest unremarkable for pulmonary embolism. -COVID PCR positive. Remdesivir has been completed. -Patient noted to have oxygen saturation as low as 89% continue remdesivir -Completed Rocephin and azithromycin. Patient will complete fluconazole 200 mg daily x14 days, Bactrim DS 1 tab daily (and will be discharged with 30-day supply). -D-dimer, LDH and ferritin elevated; procalcitonin 0.32 -Discontinued dexamethasone as the patient is currently on room air. -Infectious disease following, appreciate recs. #Acute metabolic encephalopathy-resolved -CT head negative -likely due to illness #HIV disease -Not currently taking antiretroviral drugs -CD4 count, PCR ordered -continue bactrim ppx -Follow-up with ID outpatient #Oral candidiasis-improving -Nystatin swish and swallow 4 times daily + fluconazole #Schizophrenia #Unspecified mood disorder #Anxiety depression -continue lexapro and depakote -Psychiatry following, assistance appreciated #Alcohol abuse #Alcoholic withdrawals - continue librium taper - behavioral health counseling administered which included education on benefits of alcohol cessation as well as options for quitting. +15 min #Tobacco dependence #Smoking cessation counseling -Patient has history of smoking up to 1 pack of cigarettes daily along with crack cocaine abuse in the past -Smoking cessation counseling, supportive care, behavior change counseling, +15 minutes. #moderate protein calorie malnutrition -albumin 2.6 -likely secondary to ETOH abuse. Continue dietary supplementation. #Fall -Patient reports fall last night while ambulating to the bathroom and hit the back of his neck -X-ray of C-spine negative -PT evaluation recommending subacute rehab. Pending placement. #Advance care planning -Disease education conducted, care plan discussed, diagnoses discussed, prognosis discussed, patient is full code, patient acknowledges understanding and agree with care plan, +30 minutes. #Discharge planning - Patient is pending placementPT recommended subacute rehab. - Case management has been made aware. Discharging tomorrow. Disposition Plan: Discharging tomorrow Total Time Spent with Patient (Minutes): 30 minutes History Interval history: No acute events overnight. Hospitalist Physical - Constitutional Vitals: Temp Pulse Resp BP Pulse Ox 98.0 F 77 18 107/67 89 11/09/21 05:01 11/09/21 05:01 11/09/21 05:01 11/09/21 05:01 11/09/21 05:01 General appearance: Present: no acute distress, cachectic - EENT Eyes: Present: PERRL, EOM intact ENT: hearing intact, clear oral mucosa, poor dentition, edentulous - Neck Neck: Present: supple, normal ROM - Respiratory Respiratory effort: normal Respiratory: bilateral: CTA - Cardiovascular Rhythm: regular Heart Sounds: Present: S1 & S2 - Extremities Extremities: no ischemia, pulses intact, pulses symmetrical, No edema, normal temperature, normal color Peripheral Pulses: within normal limits - Abdominal General gastrointestinal: soft, non-tender, non-distended, normal bowel sounds - Integumentary Integumentary: Present: clear, warm, dry - Psychiatric Psychiatric: appropriate mood/affect, intact judgment & insight, memory intact, cooperative - Neurologic Neurologic: CNII-XII intact, moves all extremities - Allied Health Allied health notes reviewed: nursing Results - Labs CBC & Chem 7: 11/02/21 05:58 11/05/21 06:53 Labs: Laboratory Last Values WBC 10.6 K/mm3 (4.5-11.0) 11/02/21 05:58 RBC 4.37 M/mm3 (3.65-5.03) 11/02/21 05:58 Hgb 13.1 gm/dl (11.8-15.2) 11/02/21 05:58 Hct 40.0 % (35.5-45.6) 11/02/21 05:58 MCV 92 fl (84-94) 11/02/21 05:58 MCH 30 pg (28-32) 11/02/21 05:58 MCHC 33 % (32-34) 11/02/21 05:58 RDW 14.2 % (13.2-15.2) 11/02/21 05:58 Plt Count 286 K/mm3 (140-440) 11/02/21 05:58 [place] % (Auto) Milk Runner 11/02/21 05:58 Add Manual Diff Complete 11/02/21 05:58 Total Counted 100 11/02/21 05:58 Seg Neutrophils % Milk Runner 11/02/21 05:58 Seg Neuts % (Manual) 88.0 % (40.0-70.0) H 11/02/21 05:58 Band Neutrophils % 2.0 % 11/02/21 05:58 Lymphocytes % (Manual) 2.0 % (13.4-35.0) L 11/02/21 05:58 Reactive Lymphs % (Man) 0 % 11/02/21 05:58 Monocytes % (Manual) 6.0 % (0.0-7.3) 11/02/21 05:58 Eosinophils % (Manual) 1.0 % (0.0-4.3) 11/02/21 05:58 Basophils % (Manual) 0 % (0.0-1.8) 11/02/21 05:58 Metamyelocytes % 1.0 % 11/02/21 05:58 Myelocytes % 0 % 11/02/21 05:58 Promyelocytes % 0 % 11/02/21 05:58 Blast Cells % 0 % 11/02/21 05:58 Nucleated RBC % Not Reportable 11/02/21 05:58 Seg Neutrophils # Man 9.3 K/mm3 (1.8-7.7) H 11/02/21 05:58 Band Neutrophils # 0.2 K/mm3 11/02/21 05:58 Abs Lymphs (Manual) 863 cells/uL (850-3900) 11/01/21 23:58 Lymphocytes # (Manual) 0.2 K/mm3 (1.2-5.4) L 11/02/21 05:58 Abs React Lymphs (Man) 0.0 K/mm3 11/02/21 05:58 Monocytes # (Manual) 0.6 K/mm3 (0.0-0.8) 11/02/21 05:58 Eosinophils # (Manual) 0.1 K/mm3 (0.0-0.4) 11/02/21 05:58 Basophils # (Manual) 0.0 K/mm3 (0.0-0.1) 11/02/21 05:58 Metamyelocytes # 0.1 K/mm3 11/02/21 05:58 Myelocytes # 0.0 K/mm3 11/02/21 05:58 Promyelocytes # 0.0 K/mm3 11/02/21 05:58 Blast Cells # 0.0 K/mm3 11/02/21 05:58 WBC Morphology Not Reportable 11/02/21 05:58 Hypersegmented Neuts Rare 11/02/21 05:58 Hyposegmented Neuts Not Reportable 11/02/21 05:58 Hypogranular Neuts Not Reportable 11/02/21 05:58 Smudge Cells Not Reportable 11/02/21 05:58 Toxic Granulation Not Reportable 11/02/21 05:58 Toxic Vacuolation Not Reportable 11/02/21 05:58 Dohle Bodies Not Reportable 11/02/21 05:58 Pelger-Huet Anomaly Not Reportable 11/02/21 05:58 Mu Rods Not Reportable 11/02/21 05:58 Platelet Estimate Consistent w auto 11/02/21 05:58 Clumped Platelets Not Reportable 11/02/21 05:58 Plt Clumps, EDTA Not Reportable 11/02/21 05:58 Large Platelets Not Reportable 11/02/21 05:58 Giant Platelets Not Reportable 11/02/21 05:58 Platelet Satelliting Not Reportable 11/02/21 05:58 Plt Morphology Comment Not Reportable 11/02/21 05:58 RBC Morphology Not Reportable 11/02/21 05:58 Dimorphic RBCs Not Reportable 11/02/21 05:58 Polychromasia Not Reportable 11/02/21 05:58 Hypochromasia Not Reportable 11/02/21 05:58 Poikilocytosis Not Reportable 11/02/21 05:58 Anisocytosis 1+ 11/02/21 05:58 Microcytosis Not Reportable 11/02/21 05:58 Macrocytosis Not Reportable 11/02/21 05:58 Spherocytes Not Reportable 11/02/21 05:58 Pappenheimer Bodies Not Reportable 11/02/21 05:58 Sickle Cells Not Reportable 11/02/21 05:58 Target Cells Not Reportable 11/02/21 05:58 Tear Drop Cells Not Reportable 11/02/21 05:58 Ovalocytes Not Reportable 11/02/21 05:58 Helmet Cells Not Reportable 11/02/21 05:58 Liu-Winifred Bodies Not Reportable 11/02/21 05:58 Currie Rings Not Reportable 11/02/21 05:58 [place] Cells Not Reportable 11/02/21 05:58 Bite Cells Not Reportable 11/02/21 05:58 Crenated Cell Not Reportable 11/02/21 05:58 Elliptocytes Not Reportable 11/02/21 05:58 Acanthocytes (Spur) Not Reportable 11/02/21 05:58 Rouleaux Not Reportable 11/02/21 05:58 Hemoglobin C Crystals Not Reportable 11/02/21 05:58 Schistocytes Not Reportable 11/02/21 05:58 Malaria parasites Not Reportable 11/02/21 05:58 [place] Bodies Not Reportable 11/02/21 05:58 Hem Pathologist Commnt No 11/02/21 05:58 D-Dimer 1199.73 ng/mlDDU (0-234) H 11/03/21 16:14 Sodium 139 mmol/L (137-145) 11/05/21 06:53 Potassium 5.2 mmol/L (3.6-5.0) H D 11/05/21 06:53 Chloride 105.4 mmol/L (98-107) 11/05/21 06:53 Carbon Dioxide 23 mmol/L (22-30) 11/05/21 06:53 Anion Gap 16 mmol/L 11/05/21 06:53 BUN 11 mg/dL (9-20) 11/05/21 06:53 Creatinine 0.7 mg/dL (0.8-1.3) L 11/05/21 06:53 Estimated GFR > 60 ml/min 11/05/21 06:53 BUN/Creatinine Ratio 16 % 11/05/21 06:53 Glucose 75 mg/dL (75-100) 11/05/21 06:53 Calcium 8.3 mg/dL (8.4-10.2) L 11/05/21 06:53 Ferritin 1056.0 ng/mL (30.0-300.0) H 11/03/21 16:14 Total Bilirubin 0.20 mg/dL (0.1-1.2) 11/05/21 06:53 AST 61 units/L (5-40) H 11/05/21 06:53 ALT 47 units/L (7-56) 11/05/21 06:53 Alkaline Phosphatase 80 units/L (35-129) 11/05/21 06:53 Lactate Dehydrogenase 331 units/L (91-180) H 11/03/21 16:14 C-Reactive Protein 12.20 mg/dL (0.00-1.30) H 11/03/21 16:14 Total Protein 7.0 g/dL (6.3-8.2) 11/05/21 06:53 Albumin 2.3 g/dL (3.9-5) L 11/05/21 06:53 Albumin/Globulin Ratio 0.5 % 11/05/21 06:53 Procalcitonin 0.32 ng/mL (<0.15) 11/03/21 16:14 Lymph Enumerat CD4/CD8 0.08 (0.86-5.00) L 11/01/21 23:58 % CD3 Cells 32 % (57-85) L 11/01/21 23:58 Absolute CD3 Count 273 cells/uL (840-3060) L 11/01/21 23:58 % CD4 Cells 2 % (30-61) L 11/01/21 23:58 Absolute CD4 Count 22 cells/uL (490-1740) L 11/01/21 23:58 % CD8 Cells 29 % (12-42) 11/01/21 23:58 Absolute CD8 Count 266 cells/uL (180-1170) 11/01/21 23:58 % CD19 Cells 3 % (6-29) L 11/01/21 23:58 Absolute CD19 Count 22 cells/uL (110-660) L 11/01/21 23:58 Coronavirus (PCR) Positive (Negative) A 11/02/21 09:50 HIV-1 RNA PCR copies/ml [id number] Copies/mL H 11/03/21 16:14 HIV-1 RNA (PCR) log 4.50 Log cps/mL H 11/03/21 16:14 Miscellaneous Test Flexitest 1 H 11/03/21 Unknown Clancy/IV: Voiding Method Urinal Active Medications - Current Medications Current Medications: Generic Name Dose Route Start Last Admin Trade Name Freq PRN Reason Stop Dose Admin Acetaminophen 650 mg 11/02/21 08:39 Acetaminophen 325 Mg Tab PO Q4H PRN Pain MILD(1-3)/Fever >100.5/ROSARIO Albuterol 2.5 mg 11/01/21 12:23 Albuterol 2.5 Mg/3 Ml Nebu IH Q4HRT PRN Shortness Of Breath Aripiprazole 5 mg 11/02/21 10:00 11/08/21 11:24 Aripiprazole 5 Mg Tab PO 5 mg QDAY GABRIELLE Administration Divalproex Sodium 125 mg 11/02/21 14:00 11/09/21 08:[address] 125 Mg Tab PO 125 mg TID GABRIELLE Administration Escitalopram Oxalate 20 mg 11/02/21 10:00 11/08/21 11:23 Escitalopram 10 Mg Tab PO 20 mg QDAY GABRIELLE Administration Fluconazole 200 mg 11/03/21 10:00 11/08/21 11:29 Fluconazole 200 Mg Tab PO 11/16/21 10:01 200 mg QDAY GABRIELLE Administration Protocol Folic Acid 1 mg 11/02/21 10:00 11/08/21 11:23 Folic Acid 1 Mg Tab PO 1 mg QDAY GABRIELLE Administration Guaifenesin 200 mg 11/03/21 15:50 11/03/21 17:55 Guaifenesin 200 Mg Tab PO 200 mg Q6H PRN Administration Cough Hydromorphone HCl 0.5 mg 11/01/21 12:23 Hydromorphone 0.5 Mg/0.5 Ml Inj IV Q13H PRN Pain , Severe (7-10) Melatonin 5 mg 11/02/21 21:00 Melatonin 5 Mg Tab PO QHS PRN Sleep Melatonin 5 mg 11/05/21 22:00 11/08/21 21:29 Melatonin 5 Mg Tab PO 5 mg QHS GABRIELLE Administration Mirtazapine 7.5 mg 11/02/21 22:00 11/08/21 21:29 Mirtazapine 15 Mg Tab PO 7.5 mg QHS GABRIELLE Administration Nystatin 500,000 unit 11/02/21 14:00 11/08/21 21:29 Nystatin 500,000 Unit/5 Ml Oral Liqd PO 11/16/21 13:59 500,000 unit QID GABRIELLE Administration Ondansetron HCl 4 mg 11/01/21 12:23 Ondansetron 4 Mg/2 Ml Inj IV Q8H PRN Nausea And Vomiting Oxycodone/Acetaminophen 1 tab 11/01/21 12:23 Oxycodone /Acetaminophen 5-325mg Tab PO Q6H PRN Pain, Moderate (4-6) Pantoprazole Sodium 40 mg 11/02/21 09:00 11/09/21 08:07 Pantoprazole 40 Mg Tab PO 40 mg BIDAC GABRIELLE Administration Sodium Chloride 10 ml 11/01/21 22:00 11/08/21 21:29 Sodium Chloride 0.9% 10 Ml Flush Syringe IV 10 ml BID GABRIELLE Administration Sodium Chloride 10 ml 11/01/21 12:23 Sodium Chloride 0.9% 10 Ml Flush Syringe IV PRN PRN LINE FLUSH Trazodone HCl 50 mg 11/02/21 22:00 11/08/21 21:29 Trazodone 50 Mg Tab PO 50 mg QHS GABRIELLE Administration Trimethoprim/Sulfamethoxazole 1 each 11/03/21 10:00 11/08/21 11:23 Sulfamethoxazole/Trimethoprim 800/160mg Ds Tab PO 1 each DAILY GABRIELLE Administration Protocol Nutrition/Malnutrition Assess - Dietary Evaluation Nutrition/Malnutrition Findings: Nutrition Notes Start: 11/02/21 14:18 Freq: Status: Active Protocol: Document 11/08/21 14:29 CM (Rec: 11/08/21 14:35 CM [id number]) Co-Sign 11/08/21 14:29 WW Nutrition Notes Initial or Follow up Brief Note Current Diagnosis COPD Other Pertinent Diagnosis Vascular dementia, cerebral atherosclerosis, ETOH dependence, HIV, Hep Labs/Tests 11/08: K 5.2 Cr 0.7 Pertinent Medications 11/08: Folic acid Weight change and time frame Wt unchanged since last assessment. Weight Status Underweight Subjective/Other Information RD follow-up per protocol. Pt advanced to GI soft diet. 25% breakfast/lunch 100% Dinner 11/05 50% breakfast / 100% dinner per ADL notes. 100% breakfast consumed 11/08 per RN. Pt receiving and drinking Ensure Enlive TID. Percent of energy/protein needs met: GI soft diet provides 2000kcal /82g PRO q day (129%/100%) Skin Integrity/Comment WNL Current % PO Fair (50-74%) #1 Nutrition Diagnosis Malnutrition Diagnosis Progress(for reassessment Continues documentation) Nutrition Intervention Change Diet Order: Continue current diet order Add Supplement/Snack (indicate name/kcal Ensure Enlive (Variety) TID /protein ) Provides kCal: 1,050 Provides Protein (gm) 60 Goal #1 Pt to consume >75% of estimated energy/protein needs through current diet order and nutrition supplements. Goal #2 Pt to maintain current wt status. Follow-Up By: 11/15/21 Additional Comments Monitor wt status, %PO intake, and GI symptoms.
[2021-11-09 14:41] VITALS: BP 94/61
[2021-11-09] MEDS: ARIPiprazole 5 MG TAB PO SCH (14:48)
[2021-11-09] MEDS: ESCITALOPRAM 10 MG TAB PO SCH (14:48)
[2021-11-09] MEDS: NYSTATIN 500,000 UNIT/5 ML ORAL LIQD PO SCH (14:48)
[2021-11-09] MEDS: FLUCONAZOLE 200 MG TAB PO SCH (14:49)
[2021-11-09] MEDS: SULFAMETHOXAZOLE/TRIMETHOPRIM 800/160MG DS TAB PO SCH (14:53)
[2021-11-09] MEDS: FOLIC ACID 1 MG TAB PO SCH (14:53)
--- NOTE | 2021-11-09 15:13 | Discharge Summary ---
Providers - Providers Date of Admission: 11/01/21 14:30 Date of discharge: 11/09/21 Attending physician: JENNA BRADFORD MD 11/01/21 15:26 Speech Therapy Evaluation and Treat [CONS] Routine Reason For Exam: evaluate swallowing 11/01/21 16:43 Consult to Dietitian/Nutrition [CONS] Routine Physician Instructions: Reason For Exam: Reason for Consult: Malnutrition 11/02/21 15:43 Consult to Physician [CONS] Routine Comment: Consulting Provider: SELWYN RICARDO Physician Instructions: Reason For Exam: COVID infection 11/03/21 12:09 Physical Therapy Evaluation and Treat [CONS] Routine Comment: Reason For Exam: fall 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 Procedures: None. Hospital course: The patient is a 61 YO Male with Vascular Dementia, Cerebral Atherosclerosis, ETOH Dependence, MDD, Schizophrenia, HIV Disease noncompliant with antiretroviral therapy initially admitted to [facility] for psychiatric sta bilization. Patient experienced increased weakness and dry cough, and decreased responsiveness during admission. Patient was seen and evaluated and underwent chest x-ray and was found to have pneumonia. Patient discharged from [facility] and admitted directly to medical floor. Patient was found to be acutely hypoxic requiring supplemental oxygen secondary to community-acquired pneumonia. Upon presentation, patient was also found to have acute metabolic encephalopathy. Patient was found to be positive for COVID-19, and he was initiated on Rocephin, azithromycin, and remdesivir. Is believed that the patient had possible superimposed pneumonia. The patient has since completed his antibiotic course, and he is back at his baseline. During his hospital stay, the patient experienced a ground-level fall where he hit the back of his neck while falling in an attempt to ambulate to the bathroom. He underwent CT spine that was found to be unremarkable. Patient was evaluated by physical therapy who recommended subacute rehab; however, patient was unable to be granted rehab given his insurance status. The patient will be discharging with a rolling walker. Patient is medically clear for discharge. Disposition: 01 HOME / SELF CARE / HOMELESS Final Discharge Diagnosis (Prints w/discharge instructions): Acute hypoxic respiratory failure, community-acquired pneumonia, COVID-19 infection, chronic emphysema, acute metabolic encephalopathy, HIV disease, oral candidiasis, schizophrenia, unspecified mood disorder, anxiety/depression, alcohol dependence, tobacco dependence, moderate protein caloric malnutrition, ground- level fall Time spent for discharge: 45 min Core Measure Documentation - Palliative Care Palliative Care/ Comfort Measures: Not Applicable - Core Measures Any of the following diagnoses?: none Exam - Constitutional Vitals: Temp Pulse Resp BP Pulse Ox 98.1 F 80 16 94/61 95 11/09/21 11:27 11/09/21 11:27 11/09/21 11:11/09/21 11:11/09/21 11:27 General appearance: Present: no acute distress, cachectic - EENT Eyes: Present: PERRL, EOM intact ENT: hearing intact, clear oral mucosa, poor dentition, edentulous - Neck Neck: Present: supple, normal ROM - Respiratory Respiratory effort: normal Respiratory: bilateral: diminished - Cardiovascular Rhythm: regular Heart Sounds: Present: S1 & S2 - Extremities Extremities: no ischemia, pulses intact, pulses symmetrical, No edema, normal temperature, normal color Peripheral Pulses: within normal limits - Abdominal General gastrointestinal: Present: soft, non-tender, non-distended, normal bowel sounds Male genitourinary: Present: deferred - Rectal Rectal Exam: deferred - Integumentary Integumentary: Present: clear, warm, dry - Musculoskeletal Musculoskeletal: generalized weakness - Psychiatric Psychiatric: appropriate mood/affect, cooperative - Neurologic Neurologic: CNII-XII intact, moves all extremities - Allied Health Allied health notes reviewed: nursing Plan Activity: advance as tolerated Diet: regular Additional Instructions: The patient is a 61 YO Male with Vascular Dementia, Cerebral Atherosclerosis, ETOH Dependence, MDD, Schizophrenia, HIV Disease noncompliant with antiretroviral therapy initially admitted to [facility] for psychiatric stabilization. Patient experienced increased weakness and dry cough, and decreased responsiveness during admission. Patient was seen and evaluated and underwent chest x-ray and was found to have pneumonia. Patient discharged from [facility] and admitted directly to medical floor. Patient was found to be acutely hypoxic requiring supplemental oxygen secondary to community-acquired pneumonia. Upon presentation, patient was also found to have acute metabolic encephalopathy. Patient was found to be positive for COVID-19, and he was initiated on Rocephin, azithromycin, and remdesivir. Is believed that the patient had possible superimposed pneumonia. The patient has since completed his antibiotic course, and he is back at his baseline. During his hospital stay, the patient experienced a ground-level fall where he hit the back of his neck while falling in an attempt to ambulate to the bathroom. He underwent CT spine that was found to be unremarkable. Patient was evaluated by physical therapy who recommended subacute rehab; however, patient was unable to be granted rehab given his insurance status. The patient will be discharging with a rolling walker. Patient is medically clear for discharge. Care Plan Goals: Please make sure to follow-up at your earliest convenience at [facility]. Please take all medications as they are prescribed to you. If you experience worsening shortness of breath or chest pain, please return to the ED. Please refrain from drinking alcohol. The effects have been detrimental to your health. Assessment: The patient is a 61 YO Male with Vascular Dementia, Cerebral Atherosclerosis, ETOH Dependence, MDD, Schizophrenia, HIV Disease noncompliant with antiretroviral therapy initially admitted to [facility] for psychiatric stabilization. Patient experienced increased weakness and dry cough, and decreased responsiveness during admission. Patient was seen and evaluated and underwent chest x-ray and was found to have pneumonia. Patient discharged from [facility] and admitted directly to medical floor. Patient was found to be acutely hypoxic requiring supplemental oxygen secondary to community-acquired pneumonia. Upon presentation, patient was also found to have acute metabolic encephalopathy. Patient was found to be positive for COVID-19, and he was initiated on Rocephin, azithromycin, and remdesivir. Is believed that the patient had possible superimposed pneumonia. The patient has since completed his antibiotic course, and he is back at his baseline. During his hospital stay, the patient experienced a ground-level fall where he hit the back of his neck while falling in an attempt to ambulate to the bathroom. He underwent CT spine that was found to be unremarkable. Patient was evaluated by physical therapy who recommended subacute rehab; however, patient was unable to be granted rehab given his insurance status. The patient will be discharging with a rolling walker. Patient is medically clear for discharge. Follow up with: PRIMARY CARE, [Primary Care Provider] - 7 Days Prescriptions: ARIPiprazole 5 mg PO QDAY 30 Days #30 tablet Sulfamethoxazole/Trimethoprim [Bactrim DS TAB] 1 each PO DAILY 30 Days #[address] [Depakote Dr] 125 mg PO TID 30 Days #90 tablet Fluconazole [Diflucan TAB] 200 mg PO QDAY 6 Days #12 tablet Escitalopram [Lexapro] 20 mg PO QDAY 30 Days #60 tablet Nystatin [Nystatin SUSP] 500,000 unit PO QID 6 Days #120 ml Pantoprazole [Protonix TAB] 40 mg PO QDAY 30 Days #30 tablet Azithromycin [Zithromax TAB] 500 mg PO QDAY 2 Days #4 tablet
== END 2021-11-09 19:14 | disposition home or self-care (01) | DRG 974 ==
LOC: 3A 12:17 → UNDOADMIN 12:17 → 3A 14:30
PROVIDERS: ADMIT Internal Medicine; ATTEND Student in an Organized Health Care Education/Training Program
PROC: XW033E5 Introduction of Remdesivir Anti-infective into Peripheral Vein, Percutaneous Approach, New Technology Group 5 (ICD-10-PCS; principal; 2021-11-02)
DX: U07.1 COVID-19 (principal); B20 Human immunodeficiency virus [HIV] disease; J96.01 Acute respiratory failure with hypoxia; G93.41 Metabolic encephalopathy; J12.82 Pneumonia due to coronavirus disease 2019; F10.20 Alcohol dependence, uncomplicated; F20.9 Schizophrenia, unspecified; F01.50 Vascular dementia, unspecified severity, without behavioral disturbance, psychotic disturbance, mood disturbance, and anxiety; I10 Essential (primary) hypertension; I67.2 Cerebral atherosclerosis; F32.9 Major depressive disorder, single episode, unspecified; Z91.14 Patient's other noncompliance with medication regimen; E11.9 Type 2 diabetes mellitus without complications; E44.0 Moderate protein-calorie malnutrition; Z71.6 Tobacco abuse counseling; F17.200 Nicotine dependence, unspecified, uncomplicated; B37.0 Candidal stomatitis; F39 Unspecified mood [affective] disorder; K75.9 Inflammatory liver disease, unspecified; Z91.19 Patient's noncompliance with other medical treatment and regimen; F10.239 Alcohol dependence with withdrawal, unspecified; Y90.9 Presence of alcohol in blood, level not specified; J43.8 Other emphysema; W18.39XA Other fall on same level, initial encounter; Y93.89 Activity, other specified; Y92.238 Other place in hospital as the place of occurrence of the external cause; Y99.8 Other external cause status; J43.9 Emphysema, unspecified; Z68.1 Body mass index [BMI] 19.9 or less, adult; Z82.49 Family history of ischemic heart disease and other diseases of the circulatory system; Z83.3 Family history of diabetes mellitus
CPT/HCPCS: 36415; 71275; 72040; 80048; 80053; 82024; 82728; 83615; 84145; 85007; 85025; 85379; 86140; 87536; 93970; 94760; G0378; J0696; J1100; J7030; J7050; J8540; Q9967; U0003